=== PATIENT | female | born 1995 | race Caucasian/White ===

== ENCOUNTER 2017-02-23 00:29 | Inpatient (IN) | payer OTHER ==
[~2017-02-23] VITALS: Ht 157.5 cm; Wt 70.9 kg
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
--- NOTE | 2017-02-23 01:22 | NUR ---
1 BELONGING BAG, 1 VALUABLES BAG LABS SENT (1SST,1LAV)
[2017-02-23 01:23] LABS: ABSOLUTE BASOPHIL COUNT 0 /CUMM (0.0-0.2); ABSOLUTE EOSINOPHIL COUNT 0 /CUMM (0.0-0.7); ABSOLUTE GRANULOCYTE CT 9.3 /CUMM (1.4-6.5); ABSOLUTE LYMPH COUNT 1.1 /CUMM (1.2-3.4); ABSOLUTE MONOCYTE COUNT 0.4 /CUMM (0.10-0.60); BASOPHIL % 0.3 % (0.0-2.0); EOSINOPHIL % 0.1 % (0-5); GRANULOCYTE % 86.2 % (42.2-75.2); HEMATOCRIT 39.4 % (37-47); MEAN CORPUSCULAR HGB CONC 33.6 G/DL (33.0-37.0); MEAN CORPUSCULAR VOLUME 83.4 FL (81.0-99.0); MEAN PLATELET VOLUME 9.2 FL (7.4-10.4); PLATELET COUNT 249 /CUMM (130-400); RBC DISTRIBUTION WIDTH 13.6 % (11.5-14.5); RED BLOOD CELL CT 4.72 /CUMM (4.20-5.40); WHITE BLOOD CELL COUNT 10.8 /CUMM (4.8-10.8)
--- NOTE | 2017-02-23 01:23 | NUR ---
PT REPORTS "THE ONLY PEOPLE I WANT TO TALK TO ARE PEOPLE WHO WILL LET ME KILL MY PARENTS."
--- NOTE | 2017-02-23 01:24 | NUR ---
PT DENIES ANY MEDICAL HX.
--- NOTE | 2017-02-23 03:25 | NUR ---
PT SLEEPING AT THIS TIME. LIGHT REMAINS ON IN ROOM PER REQUEST FROM PT. SITTER PRESENT. NO ACUTE DISTRESS NOTED.
--- NOTE | 2017-02-23 04:05 | NUR ---
URINE SAMPLE OBTAINED, SPECIMENS SENT OFF TO THE LAB.
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
--- NOTE | 2017-02-23 06:55 | NUR ---
REFUSING VS UNCOOPERATIVE W/STAYING IN HER RM. WALKING IN AND OUT OF RM 14. INSTRUCTED THE IMPORTANCE OF HER BEING COPERATIVEW/STAFF AND SITTERS. SECURITY STANDING W/SITTER.
--- NOTE | 2017-02-23 08:12 | NUR ---
Crisis attempted to engage pt for consultation. Pt reports "I am not ready to talk". Pt informed crisis will check back in with her to meet a little later this morning.
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
--- NOTE | 2017-02-23 11:20 | NUR ---
ASSUMED CARE OF THIS PT FROM CURT PARRY. PT REFUSING TO SPEAK OR ALLOWING VITALS. CRISIS ATTEMPTED TO SPEAK WITH PT, BUT SHE IS REFUSING THIS WELL. SITTER AT DOOR.
--- NOTE | 2017-02-23 12:47 | NUR ---
PT LYING ON BED IN ROOM 14. PT CALM AT THIS TIME. SITTER AT DOOR.
--- NOTE | 2017-02-23 14:15 | NUR ---
PT CALM IN ROOM 14, NOT COOPERATIVE WITH SPEAKING WITH CRISIS OR ALLOWING VITALS. SITTER AT DOOR FOR SAFETY.
--- NOTE | 2017-02-23 15:01 | NUR ---
PT REFUSING VITALS. PT OTHERWISE CALM LYING ON BED IN ROOM 14. SITTER AT DOOR
--- NOTE | 2017-02-23 16:55 | NUR ---
STRING TOP SEALER AT BEDSIDE
--- NOTE | 2017-02-23 17:30 | NUR ---
PT RESTING ON BED IN ROOM 14. PT MET WITH CRISIS. SITTER AT DOOR.
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
--- NOTE | 2017-02-23 18:44 | NUR ---
PT REFUSING ZYDIS 5MG AT THIS TIME SITTER AT DOOR
--- NOTE | 2017-02-23 19:12 | NUR ---
Patient crisis consultation completed. Evaluation reviewed with on-call psychiatrist Dr. Guerrero and with attending physician Dr. Ac. Dr. Guerrero advised Zydis 0.5 mg - Dr. Ac ordered this. Patient may refuse her medication due to paranoia. Patient is pending inpatient psychiatric admission. Due to no beds at [facility], a bed search will be done by crisis.
--- NOTE | 2017-02-23 19:37 | NUR ---
PT'S VALUABLES BAG WAS OPENED TO GET PHONE NUMBERS OFF CELL PHONE, THEN RESEALED.
--- NOTE | 2017-02-23 21:03 | NUR ---
PT SITTING ON BED IN ROOM 14. PT CALM AT THIS TIME. SITTER AT DOOR.
--- NOTE | 2017-02-23 22:46 | NUR ---
PT REFUSED ZYDIS 10MG. PT RESTING ON BED IN ROOM 14. PT CALM AT THIS TIME. SITTER AT DOOR.
--- NOTE | 2017-02-24 00:18 | NUR ---
SLEEPING ON BED. RR WNL. SITTER IN ATTENDANCE.
--- NOTE | 2017-02-24 02:36 | NUR ---
SLEEPING ON BED. RR WNL. SITTER IN ATTENDANCE.
--- NOTE | 2017-02-24 04:23 | NUR ---
CONTINUES TO SLEEP
--- NOTE | 2017-02-24 06:18 | NUR ---
pt refused vitals at this time pt states "you cant come in here"
--- NOTE | 2017-02-24 08:24 | NUR ---
PT UP AND EATING BREAKFAST SITTER REMAINS AT DOOR
--- NOTE | 2017-02-24 09:17 | NUR ---
PT STANDING IN THE CORNER OF THE ROOM OFFERS NO COMPLAINTS SITTER REMAINS AT DOOR
--- NOTE | 2017-02-24 09:38 | NUR ---
Crisis attempted to speak with pt. for re-eval and pt. stated "you can't come in here, you can't talk to me". Clinician attempted to ask clarifying questions and pt. refused to answer any other questions, staying quiet and appearing to be "sleeping" in her room. Employee Relations Director indicated she would return "later" to speak with pt.
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
--- NOTE | 2017-02-24 12:12 | NUR ---
ASSUMED CARE OF THIS PT. PT RESTING ON HER BED IN ROOM 14. PT CALM AT THIS TIME. SITTER AT DOOR.
--- NOTE | 2017-02-24 13:33 | ED PSYCHIATRIST/APRN CONSULT ---
Psychiatrist/MEDICAL CLERICAL ASSISTANT ED Consult Assessment and Plan: Attempted to see pt as f/u. Pt refused to speak with this provider. Refusing meds. A/P: Given stated HI, refusal to cooperative with medication and treatment, pt at high risk for harm to others as well as self. As such, requires acute psychiatric stablization. Awaing inpatient bed.
--- NOTE | 2017-02-24 13:45 | ED PSY CRISIS COLLATERAL NOTE ---
See Addendum Collateral Note Collateral Note Family/Inform/Keagan Contacts: Dr. Guerrero re-evaluated pt and determined he continues to require inpt psych tx and remains on a PEC. She asked that pt's Aunt be notified as pt requested.This clinician called Aunt Jame Shen and explained the need for inpt psych tx due to concern that pt is a risk to himself due to his OD. She did not agree with the decision and stated she plans to get other family involved in this as they do not agree that pt should be on a PEC and want him discharged. "He is going to loose his job because of this." Explained to her that the nurses are currently charging his phone so that we can get his jobs number out of it and call them and tell them he is in the hospital and that his job will not be told why he is in the hospital.
--- NOTE | 2017-02-24 14:24 | NUR ---
PT'S PARENTS DROPPED OFF BAG OF BELONGINGS FOR PT. BROUGHT TO AREA FOR SECURITY TO GO THROUGH AND OUT IN CLOSET. PARENTS ASKED THAT PT NOT BE TOLD WHO DROPPED OFF THE BELONGINGS. PARENTS ARE AVAILABLE BY CELL - MOM = [phone] AND DAD = [phone]
--- NOTE | 2017-02-24 14:32 | NUR ---
PT'S VALUABLES BAG REMOVED FROM SAFE, OPENED TO RETREIVE PHONE NUMBERS FROM CELL PHONE SO PT COULD CALL WORK. PHONE RETREIVED AND PLACED IN NEW VALUABLES BAG AND RETURNED TO SAFE.
--- NOTE | 2017-02-24 15:20 | NUR ---
PT PLACED IN 4 POINT HARD RESTRAINTS AT 15:20 SITTER AT DOOR
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
--- NOTE | 2017-02-24 17:25 | NUR ---
PT TIANER, EXPLAINED PROTOCOL TO TAKE 2 RESTRAINTS OFF AT A TIME. PT'S RIGHT WRIST AND LEFT ANKLE REMOVED FROM RESTRAINTS. THIS RN AND RESAW TAILER AT BEDSIDE TO TELL PT CRITERIA TO COME OUT OF ALL RESTRAINTS. SITTER AT DOOR.
--- NOTE | 2017-02-24 18:30 | NUR ---
PT SEEN PULLING AT RESTRAINTS IN AN ATTEMPT TO ESCAPE THEM. PT INFORMED THAT SHE NEEDS TO SHOW CONTROL FOR 1 HOUR, PT DENYING PLAYING WITH RESTRAINTS. SITTER REMAINS AT BEDSIDE
--- NOTE | 2017-02-24 18:47 | NUR ---
1 PERSONAL BELONGINGS PUT IN CLOSET
--- NOTE | 2017-02-24 19:29 | NUR ---
PT REMOVED HER WRIST FROM THE LEFT WRIST RESTRAINT. PT WAS EDUCATED ON THE NEED FOR HER TO REMAIN IN THE 2 POINT RESTRAINTS FOR HER AND OUR SAFETY. LEFT WRIST RESTRAINT WAS REAPPLIED. SITTER AT DOOR. PT TEARFUL.
--- NOTE | 2017-02-24 20:44 | NUR ---
PT REMOVED FROM 2 POINT HARD RESTRAINTS AT 2043. ORDER IS FOR 2044. PT AGREES TO BE CALM AND REMAIN IN ROOM WHEN ASKED TO. SITTER AT DOOR.
--- NOTE | 2017-02-24 20:59 | NUR ---
PT'S MOTHER CALLED TO RELAY HER WISH FOR PT TO BE ADMITTED HERE TOMORROW IF BEDS BECOME AVAILABLE.
--- NOTE | 2017-02-24 21:51 | NUR ---
PT ASLEEP AT THIS TIME. RESPIRATIONS EQUAL AND UNLABORED. SITTER AT DOOR.
--- NOTE | 2017-02-24 23:30 | NUR ---
PATIENT AWAKE, AGITATED. PATIENT REFUSING ANY VS AT THIS TIME. REGUALR RESPIRATIONS NOTED. LIGHTS DIMMED TO DECREASE STIMULI. SITTER REMAINS W/ PATIENT.
--- NOTE | 2017-02-25 01:23 | NUR ---
PATIENT SLEEPING AT THIS TIME W/ REGULAR RESPIRATIONS NOTED. SITTER REMAINS W/ PATIENT. LIGHTS DIMMED. PATIENT NOTED TO BE TURNING AND REPOSITIONING SELF.
--- NOTE | 2017-02-25 03:37 | NUR ---
PATIENT CONTINUES TO SLEEP AT THIS TIME W/ REGULAR RESPIRATIONS NOTED. SITTER REMAINS W/ PATIENT. LIGHTS DIMMED.
--- NOTE | 2017-02-25 05:57 | NUR ---
AWOKE PATIENT TO ATTEMPT TO OBTAIN VS. PATIENT REFUSING VS AT THIS TIME. PATIENT ATTEMPTING TO RETURN TO SLEEP. LIGHTS DIMMED TO DECREASE STIMULI. SITTER REMAINS W/ PATIENT.
--- NOTE | 2017-02-25 08:12 | NUR ---
SPOKE WITH PT AT LENGTH ABOUT PROCESS OF BED SEARCH. PT CONTINUOUSLY ASKING WHY SHE NEEDS TO STAY, ASKING FOR HER DISCHARGE PAPERS. PT EDUCATED ON NEED TO BE ADMITTED WHETHER TO [facility] OR ELSEWHERE FOR HER OWN SAFETY. AND THAT THE DECISION TO ADMIT PT COMES FROM PSYCH. NOT THIS RN. PT ASKING TO CALL HER BROTHER FLOYD, WILL ALLOW PT TO CALL BROTHER LONG PT REMAINS CALM/COOPERATIVE. Informed waiting has been performed. ALSO SPOKE WITH PT'S MOTHER LIZY WHO DOES NOT WANT PT TO KNOW SHE CALLED. ADVISED MOTHER PT CONTINUES TO BE A BED SEARCH.
--- NOTE | 2017-02-25 09:08 | NUR ---
CRISIS AT BEDSIDE WITH PT.
--- NOTE | 2017-02-25 09:32 | NUR ---
ATTEMPTED TO MEDICATED PT WITH PO ZYPREXA. PT STATING SHE HASN'T TAKEN IT, AND DOES NOT KNOW WHAT IT DOES. PT EDUCATED ON ZYPREXA. REQUESTING MORE INFO ON ZYPREXA. PT PROVIDED PRINTED EDUCATION ON ZYPREXA.
--- NOTE | 2017-02-25 09:38 | NUR ---
Pt will be admitted to [facility]. Waiting on [facility] to discharge patient. Time of admission TBD.
--- NOTE | 2017-02-25 10:30 | NUR ---
PT PROVIDED LAW BOOK FROM [employer] PER HER REQUEST.
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
--- NOTE | 2017-02-25 11:48 | ED PSY CRISIS COLLATERAL NOTE ---
See Addendum Collateral Note Collateral Note Family/Inform/Keagan Contacts: Recieved call from Justine Kennedy (mother). She asked for an update on Alexa. Mom was informed that Alexa would be admitted to [facility] today. Mom was informed that she had taken 1 dose of Zyprexa this morning. Mom was given [facility] nursing station number.
--- NOTE | 2017-02-25 11:51 | NUR ---
SLEEPING ON BED. RR WNL. SITTER IN ATTENDANCE.
--- NOTE | 2017-02-25 12:24 | NUR ---
REPORT TO [facility] IN [facility].
[2017-02-25 13:08] VITALS: BP 122/84
--- NOTE | 2017-02-25 13:32 | NUR ---
Admission assessment: Patient presents as psychotic, paranoid, frightened, with no insight into need for hospitalization. Patient lying in bed with back to this scenario writer. Poor historian, states she has no parents, denies SI or HI. Reports non compliance with meds "I throw them in the trash". Patient tearful at times stating "my head make it stop" patient offered but refused prns. Patient requesting to call the police to find her belongings and car keys. Patient opting out. Resting in bed- on 1:1 for safety, unpredictability.
[2017-02-25 16:23] VITALS: BP 130/65
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
[2017-02-25 19:58] VITALS: BP 109/58
--- NOTE | 2017-02-25 22:40 | NUR ---
Pt is in bed mood is flat and tearful, labile during erica shift. Vital signs are stable no behavioral issues during erica shift. Will continue to monitor the pt overnight.
--- NOTE | 2017-02-25 23:42 | NUR ---
PT SPENT MUCH OF EVENING SHIFT IN BED. WHEN AWAKE, MOOD LABILE. PT AT TIMES TEARFUL, AT OTHER TIMES HAD AN ANGRY EDGE. BEHAVIOR SUSPICIOUS AND PARANOID. TOLD MED NURSE AND SITTER TO "GET THE &*#$ AWAY" FROM HER. HOWEVER, BEHAVIOR DID NOT ESCALATE WHEN REDIRECTED. THOUGH INITIALLY RESISTANT TO TAKING MEDS, PT AGREED TO TAKE HS ZYPREXA. AFTER TAKING HS MEDS AND BEING ALLOWED TO VERBALIZE THOUGHTS AND FEELINGS WITH CHARGE NURSE AND SITTER, BEHAVIOR WAS MORE CALM AND MORE APPROPRIATE. PT REQUESTED THAT CHARGE NURSE CALL MOTHER AND ASK HER TO BRING IN SOME BELONGINGS AND TOILETRIES. CHARGE NURSE CALLED MOTHER PER PT REQUEST. PT CONSIDERING CALLING MOTHER TOMORROW. PT CURRENTLY SLEEPING IN BED.
--- NOTE | 2017-02-26 05:15 | NUR ---
PATIENT SLEPT ALL NIGHT WITH 1:1 SITTER MONITORING AT ALL TIMES.
[2017-02-26 08:22] VITALS: BP 125/68
--- NOTE | 2017-02-26 10:55 | SOCIAL WORKER TX PLAN PSYCH ---
Treatment Plan - Please Document: - Evidence that there is ongoing collaboration between - the patient and the interdisciplinary team, - including the patient's active participation and - responsibility for engaging in the treatment regimen, - and that the treatment plan is individualized and - relevant to the patient's conditions. - Treatment plan should reflect documentation indicating - that all active therapeutic efforts are included. Strengths/Capabilities: Patient is a college graduate Patient likes to read to educate herself on various topics Physical Limitations (Interventions): None reported. Patient Identified Trmt Goals: Pt not able to identify Discharge Plan: Referral to [facility] Problem/Goals #1 Problem #1: Suicidal/Homicidal Ideation Goal (Short Term): Maintain safety on unit (15min checks), verbalize feelings to staff, idenitfy 1- 2 triggers to SI, Depression, and 1-2 coping skills. Attend groups and be visible in millieu. Goal (Industrial Engineering Analyst): PT to report no psychosis, no psychosis observed, no SI/HI, No AH/VH. Mood stable. Follow-up with treatment recommendations ([facility]). Interventions: Individual therapy daily, groups daily (4), activities, meeting with ASSEMBLER PRODUCT or MD daily regarding medication management, Family meetings as needed. Nursing 13/05 care, medical care. Modalities: CBT, DBT, SC modalities, accupuncture, activity groups, SA/MH groups. Problem/Goals #2 Problem #2: Cannibis Use Goal (Short Term): Idenitfy 1-2 triggers to Cannibis use, and 1-2 ways to prevent relapse. Attend all Substance abuse groups on unit, verbalize increase in understanding of impact substance abuse has on mood and functioning. Goal (Snf): Maintain abstinence, use relapse prevention plan in daily life, sober/clean supports, AA/NA and follow-up with aftercare plan. Interventions: Individual therapy daily, groups daily (4), activities, meeting with ASSEMBLER PRODUCT or MD daily regarding medication management, Family meetings as needed. Nursing 13/05 care, medical care. Modalities: Provide psychoeducation on substance abuse and impact on mood, symptoms and functioning. CBT, SC and strengths based modalites. DSM5/PS Stressors/Medical Prob Diagnosis' (DSM 5, Stressors, Medical): F31.2 Bipolar Disorder with psychotic features R/O Schizophrenia Current GAF: 20 Treatment Team - Responsibilities of members of the treatment team include: - Medication Management- MD or ASSEMBLER PRODUCT - Medication Administration and Monitoring- Nurse - Group Therapy- Occupational Therapist - 1:1 Therapy,Disch Planning,family involvement-Pasta Press Operator
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
--- NOTE | 2017-02-26 12:20 | NUR ---
PT REPORTED FEELING SLEEPY FROM HER MEDS. SHE ATTENDED SOME OF THE GROUPS. MINIMAL PARTICIPATION. SHE DOES DENY SUIICDAL THOUGHTS AND HER BEHAVIOR HAS BEEN CALM AND COOPERATIVE. SHE IS MONITORED ON ONE TO ONE STATUS FOR HER SAFETY.HER CONVERSATION HAS BEEN APPROPRIATE
[2017-02-26 12:40] VITALS: BP 133/66
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
--- NOTE | 2017-02-26 16:40 | CPS MD/APRN INITIAL ASSE PSYCH ---
Psychiatric Admission Heavy Equipment Sales Associate's Note Reviewed: Yes Patient Seen and Examined: Yes Identifying Information: Patient is a 22-year old female with a history of cannabis use disorder and Bipolar disorder (per Crisis eval) who was biba on a PEER for homicidal ideation to kill her parents with plan to shoot them, and medication nonadherence. Additionally, PEER noted the patient was "found trying to get into a residence in [place]...rambling thoughts, off Bipolar meds. Believes she is undercover for the police." Chief Complaint: "I'm seeking safety from my parents." Reaction to Hospitalization: Unable to assess at present History of Present Illness Onset of Illness: Four years ago, patient experienced first "psychotic break" while attending [employer] (per Crisis collateral from patient's mother). Patient had difficulty partaking in interview given present acuity of symptoms. Circumstances Leading to Admission: Polysubstance abuse Medication nonadherence Problem(s) Justifying Need for Admission: HI towards family with plan to shoot parents. Past Psychiatric History Past Diagnosis(es)- if any: Bipolar disorder with psychotic features Past Precipitating Factors- if any: Medication nonadherence Cannabis use - Include inpatient and outpatient treatment Treatment History: Patient unable to provide tx history given present symptoms. Per crisis collateral from pt's mother: -1st hospitalized at [facility] in [place] around 2011. -Hospitalized a second time in 2011 at [facility]. -S/p D/C from [facility] hospitalization, she was seen by [place] psychiatrist Dr. Shaggy Larsen. - Third hospitalization occured at [facility] in [place] around 2012. - Prior outpatient tx with psychiatrist in [place] while attending college. -Last hospitalized in September 2016 at [facility]. - Recently treated by Tru Castro APRN at [facility] in [place], [place]. *Per crisis collateral, mother reported patient will use legal processes to refuse medications but has lost all involuntary treatment hearings. History of Suicide Attempts or Gestures Denied. Substance Abuse History: Utox (+) for cannabis only. BAL <10.0mg/dl. Patient unable to answer if she used other substances; was very overwhelmed by questions being asked. Allergies: Coded Allergies: No Known Allergies (02/23/17) Home Med List: Last prescribed Atkinson which she was nonadherent to, per collateral from mother. Past med trials (per crisis collateral from pt's mother): Haldol Abilify Propranolol (for tremors associated with antipsychotic medication.) *Mother reports Abilify was effective in managing patient's symptoms. - Include any medical condition(s) that may - impact the patient's recovery/remission Past Medical History: Chronic back pain Past History Medical History Any Pertinent Medical History? 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 When asked this, patient repeated multiple times "what do you mean by that?" Significant Relationships (family/friends): Patient unable to answer. Based on crisis collateral, patient's mother seems very supportive and concerned for patient's well-being. 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 Legal: Denied. Healthly Behaviors Screening Tobacco Screening Tobacco Use from ED Docu: Never used - If tobacco counseling indicated - the following topics are required. - #1 Recognizing dangerous situations. - #2 Coping Skills. - #3 Basic information about quitting. Status of Tobacco Cessation Counseling: N/A B/C NO TOB USE Cessation Med Status: No Tobacco Use last 30d Alcohol Screening - ETOH screen POS if BAL >=80 or Audit-C>= M4/F3 Audit-C Score from Diag Assess: 0 Blood Alcohol Level: Lab Serum Alcohol < 10.0 MG/DL 02/23/17 0116 Alcohol Use Screening Results: Neg per Audit C &/or BAL - If ETOH counseling indicated - the following topics are required. - #1 Express concern about the patient's - drinking at unhealthy levels, include informing - of national norms for moderate drinking: - men <= 14 drinks/week, max 4 drinks/occasion - women <= 7 drinks/week, max 3 drinks/occasion - #2 Providing feedback, including linking alcohol to - negative physical effects (liver injury, hypertension) - negative emotional effects (relationship problems and - depression) - negative occupational consequences (reduced work - performance) - #3 Advising the patient to abstain from alcohol or - to drink below national norms for moderate drinking - (as listed above). Status of ETOH Use Counseling: N/A B/C NO ETOH Use Metabolic Screening - Screen if on a Neuroleptic Medication - Metabolic screening should include: - Blood Pressure, BMI, Glucose or Hgb A1c, & a - Lipid profile from within the past 365 days. Metabolic Screening () Not Applicable, patient not on a neuroleptic. OR ([X]) Patient on a neuroleptic(s) . Enter below results for Glucose or Hemoglobin A1C, and lipid panel if obtained during the last 365 days. BMI: 28.000 Blood Pressure: 129/87 Laboratory Results (If applicable): Lab Glucose 130 mg/dL H 02/23/17 0116 Lipid panel and HA1c ordered for tomorrow morning. Exam and Plan Mental Status Examination Ambulation Status: Steady and independent Appearance: 22y/o CF who appears stated age. Dressed in paper scrubs, disheveled. Attitude towards examiner: Suspicious. Psychomotor activity: + psychomotor agitation. No psychomotor retardation noted. Behavior: Restless, fidgety, guarded. Quality of speech: Some paucity. Soft-spoken. Affect: Constricted to blunted. Mood: "scared, anxious." Unable to quantify anxiety/depression using 0/10 scale given profound thought disturbance. Suicidal Ideation: Denied Homicidal Ideation: Denied HI, plans and intent. Patient was noted in ED with HI towards parents and plan to shoot them. Hallucinations: Denied AVH. Did not appear to be responding internally. Paranoid/Delusional Material: + paranoia towards family members who "work in the medical field and are trying to do weird things to me." Patient would not elaborate further on remark. Also expressed paranoia towards other patient's on unit "who are trying to stab me." Again, she could not elaborate on statement. Difficulties with thought organization: Significant thought disturbance. Mild thought blocking noted. Easily overwhelmed by questions asked; easily distracted. Unable to articulate thoughts to short, direct questions. Insight: poor Judgment: poor Orientation: X 3 Cognition: Intact Memory Function: Unable to assess; patient unable to complete recall of objects at 1 and 5 minutes given acuity of symptoms. Estimate of intellectual functioning: Unable to assess at present. Assets/Strengths Patient Identified Assets/Strengths: Supportive family; college educated. Impression/Plan Impression and Plan: Patient is a 22-year old CF with a reported history of Bipolar disorder, multiple inpatient psychiatric hospitalizations starting 4 years ago. Last hospitalized at [facility] in 2016. She presented to ED on a PEER biba d/t psychosis , medication nonadherence and HI with plan to shoot her parents. Limited HPI was obtained from patient given her difficulty participating in interview secondary to acuity of psychosis. She denied SI, HI, AVH on encounter. Thought blocking evident. Patient appeared significantly anxious given paranoia towards family and other patients on unit, believing patients will stab her. Exacerbation likely influenced by medication nonadherence and cannabis use. Unclear if other substances were taken, however Utox (-) for all other substances. Patient requires inpatient tx for stabilization. For now, will continue scheduled Zyprexa for psychosis. Patient reported daytime sedation from Zyprexa 10mg BID. Reviewed with patient that I will change dosing to 5mg QAM and 15mg QHS for psychosis. Patient was agreeable. Will need collateral from patient's mother, outpatient psych provider, and past [facility] records to more fully understand the patient's diagnostic and tx history. Patient presently unwilling to sign MARIELY for these parties largely due to disorganized thoughts and inability to understand consent process. Will wait for patient's thoughts to clear to resume this process. - Include all active medical diagnosis that require tx DSM 5 Diagnosis(es): Schizoaffective disorder, bipolar type R/O Schizophrenia Cannabis use disorder R/O substance-induced psychosis. - Initial Tx Plan for Active Psych & Medical Conditions Treatment Plan: 1. Continue 1:1 ATC for safety to self/others/paranoia. Continue in paper scrubs for safety. 2. Change Zyprexa from 10mg BID to 5mg QAM and 15mg QHS for significant thought disturbance. 3. Lipid panel, Hemoglobin A1C, rpt potassium, magnesium, TSH, and Atkinson level ordered for tomorrow morning. 4. EKG ordered. 5. Once thought process clears, attempt to obtain MARIELY to contact patient's mother, outpatient psych provider and obtain [place] records. 6. Once symptoms clear, consider switch to Abilify (given past efficacy) and if tolerated consider trial of Abilify TREVINO. 7. Once symptoms are psychiatrically stable, refer to IOP level of care. 8. H&P per general pediatrician team. 9. Continue mouth checks after every medication administration. - Factors that would help patient function - in a less restrictive setting. Factors: Resolved psychosis and HI Medication adherence Treatment adherence Mood stabilization
[2017-02-26 16:44] VITALS: BP 129/87
[2017-02-26 19:52] VITALS: BP 132/78
--- NOTE | 2017-02-26 22:13 | NUR ---
PT IS CURRENTLY ON A ONE TO ONE, STAYING IN UNIT PERIPHERY. LIMITED INTERACTION WITH PEERS, WILL INTERACT WITH STAFF. MOOD IS STABLE, AFFECT IS EUTHYMIC, APPEARS ANXIOUS AT TIMES, COMMUNICATION IS ORGANIZED AND APPEARS NORMAL IN ALL RESPECTS, AND APPETITE IS NORMAL. PT DENIES SI AT THIS TIME.
--- NOTE | 2017-02-27 00:17 | NUR ---
PT OBSERVED SLEEPING, NO COMPLAINTS OFFERED. SITTER PRESENT.
--- NOTE | 2017-02-27 02:48 | NUR ---
PT REMAINS ASLEEP WITHOUT ISSUE. SITTER REMAINS IN PLACE 1:1 OBSERVATION
--- NOTE | 2017-02-27 03:57 | NUR ---
SLEPT WELL OVERNIGHT WITH SITTER PRESENT ALL NIGHT.
--- NOTE | 2017-02-27 03:58 | NUR ---
SLEEPING WITH SITTER IN ATTENDANCE AT ALL TIMES.
[2017-02-27 07:12] LABS: LITHIUM < 0.2 mmol/L (0.6-1.2)
[2017-02-27 08:02] VITALS: BP 127/75
--- NOTE | 2017-02-27 11:49 | NUR ---
PT MONITORED ON ONE TO ONE STATUS FOR HER SAFETY. SHE WAS INITIALLY RESISITIVE TO MEDS BUT DID TAKE THEM. HER GOAL WAS TO TALK WITH HER DOCTOR ABOUT HER MEDS.PT APPEARS GUARDED AND PARANOID AT TIMES. SHE RESCINDED HER RELEASE OF INFORMATION AND REFUSES TO ALLOW STAFF TO SPEAK WITH HER FAMILY. WHEN ASKED PT STATED SHE HAD SUICIDAL THOUGHTS BUT REPORTED NO PLAN.MINIMAL INTERACTIONS WITH HER PEERS
[2017-02-27 12:42] VITALS: BP 137/76
--- NOTE | 2017-02-27 15:48 | CP SOUTH PROGRESS NOTE PSYCH ---
Psych (Inpt) Progress Note Progress Note Include the following elements, when applicable: Involvement in the active treatment of the patient with behavioral observations of the patient and the patient's response to the treatment. Review of the ongoing treatment process in the context of the treatment plan. Indication of how multi-disciplinary staff members are carrying out the treatment plan. Plans for future interventions and recommendations for revision of the treatment plan. Liaison with other physicians/providers. Progress Note: I discussed this patient's progress to date, current mental status, treatment process in the context of the treatment plan, and discharge planning with staff/ team in the daily morning inpatient team meeting. I also met with the patient myself in individual session. OBJECTIVE: Current Medications Sig/Kirby Start time Last Medication Dose Route Stop Time Status Admin Diphenhydramine HCl 50 MG Q6P PRN 02/25 2145 AC PO Idalia Carbonate 450 MG 799,02/27 CAN PO Idalia Carbonate 450 MG 0800,02/27 AC PO Olanzapine 5 MG 02/27 08 AC 02/27 PO 0931 Olanzapine 15 MG 02/26 AC 02/26 PO 211 Propranolol HCl 20 MG TID PRN 02/25 214 AC 02/27 PO 1339 Vital Signs Date Time Temp Pulse Resp B/P B/P Pulse O2 O2 Flow FiO2 Mean Ox Delivery Rate 02/27 1339 96 137/76 02/27 1242 96 137/76 02/27 0802 97.3 94 127/75 02/26 1952 98.7 93 132/78 02/26 1702 98 129/87 02/26 1644 98 129/87 Laboratory Tests 02/27/17 0600: Hemoglobin A1c 5.3, Magnesium 2.1, Triglycerides 107, Cholesterol 147, LDL Cholesterol, Calc 81, HDL Cholesterol 45, Cholesterol/HDL Ratio 3, TSH 1.730, Idalia < 0.2 L ASSESSMENT: Chart, progress notes, labs, VS and medication list were reviewed. HR mildly tachy, VS otherwise within normal limits. TSH, Lipid panel, rpt potassium and magnesium all within normal limits. Li level <0.2. Met with patient individually today. Without prompting she shared feeling "more confident" today. When asked to elaborate on this, she appeared stuck, became frustrated then stated "what? why? I feel with my hands." Thought process remained disorganized, with intermittent thought blocking. Mood was labile, tearfully pleading with this expert medical writer for discharge today. Behavior was suspicious and guarded. I asked her if I could contact her outpatient MECHANICAL SPECIALIST, Tru Victorlon, from [facility]. She asked why? I informed her that it would be helpful to understand her treatment history from her outpatient provider. She stated "I'm his patient, ask me what you need to know." Patient struggled to participate in conversation. She refused to sign MARIELY for Tru Matthew MECHANICAL SPECIALIST. She also refused to sing MARIELY for her mother or [facility]. When asked about her resistence to signing MARIELY, she stated "I'm afraid you will all take advantage of me." Patient continues to endorse paranoid thoughts towards staff. Today, she denied PI towards her mother and father, and other patients on the unit, unlike yesterday. She denied SI, HI, AVH. No evidence of galileo delusions. She reported sleeping well throughout the night. Reported stable appetite. Reported fair energy level. She reported tolerating medications well thus far, she denied untoward medication effects. Spoke to patient about resuming Idalia CR which she was nonadherent to outpatient to target mood lability. Reviewed the risk/benefit/se profiles of Idalia, she verbalized understanding of education. She was agreeable to retrial. Patient making slow progress with continued thought disturbance and mood lability. Continues to require inpatient stabilization. PLAN: 1. Continue 1:1 sitter ATC for safety to self/others. 2. Continue paper scrubs given risk for elopement; continue mouth checks. 3. Start Idalia CR 450mg BID for mood stabilization. Level ordered for 03/03/17 at 0600. 4. Continue Zyprexa 5mg QAM and 15mg QPM for thought disturbance. 5. Dispo planning per primary team.
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
[2017-02-27 16:24] VITALS: BP 136/61
[2017-02-27 20:02] VITALS: BP 125/80
--- NOTE | 2017-02-27 20:42 | NUR ---
PT IS COOPERATIVE WITH STAFF AND PEERS, AND COMPLIANT WITH UNIT RULES. OFTEN IN MILIEU, THOUGH LIMITED INTERACTION WITH PEERS. WILL INTERACT WITH STAFF TO A GREATER EXTENT. MOOD IS STABLE, AFFECT IS EUTHYMIC, APPEARS SLIGHTLY ANXIOUS AT TIMES. COMMUNICATION IS ORGANZIED AND APPEARS NROMAL IN ALL RESPECTS, AND APPETITE IS NORMAL. PT DENIES SI AT THIS TIME.
--- NOTE | 2017-02-28 06:55 | NUR ---
PATIENT SLEPT ALL NIGHT AFTER 0130, PRIOR SHE RESTED QUIETLY IN BED; SHE CONTINUED TO REFUSE ZYPREXA, STATING "I'LL COME OUT FOR IT WHEN I'M READY", CONSTRICTED AFFECT, PARANOIA, VERBALIZING FEARS THAT SHE WILL BE HARMED.
[2017-02-28 08:22] VITALS: BP 116/73
--- NOTE | 2017-02-28 10:29 | CP SOUTH PROGRESS NOTE PSYCH ---
Psych (Inpt) Progress Note Progress Note Include the following elements, when applicable: Involvement in the active treatment of the patient with behavioral observations of the patient and the patient's response to the treatment. Review of the ongoing treatment process in the context of the treatment plan. Indication of how multi-disciplinary staff members are carrying out the treatment plan. Plans for future interventions and recommendations for revision of the treatment plan. Liaison with other physicians/providers. Progress Note: I discussed this patient's progress to date, current mental status, treatment process in the context of the treatment plan, and discharge planning with staff/ team in the daily morning inpatient team meeting. I also met with the patient myself in individual session. OBJECTIVE: Current Medications Sig/Kirby Start time Last Medication Dose Route Stop Time Status Admin Diphenhydramine HCl 50 MG Q6P PRN 02/25 2145 DC PO Mershon Carbonate 450 MG 0800,02/27 CAN PO Mershon Carbonate 450 MG 0800,02/27 AC 02/28 PO 1030 Olanzapine 10 MG 02/28 CAN PO Olanzapine 5 MG 1300 02/28 1300 CAN PO Olanzapine 2.5 MG Q4 HRS NEEDED PRN 02/28 1000 DC PO Olanzapine 5 MG 0800 02/27 0800 DC 02/27 PO 0931 Olanzapine 15 MG 2100 02/26 2100 DC 02/26 PO 2118 Propranolol HCl 20 MG .STK-MED ONE 02/28 2008 DC PO 02/27 2009 Propranolol HCl 20 MG TID PRN 02/25 2145 AC 02/28 PO 1030 Risperidone 3 MG 02/28 AC PO Risperidone 0.25 MG Q4 HRS NEEDED PRN 02/28 1030 AC PO Vital Signs Date Time Temp Pulse Resp B/P B/P Pulse O2 O2 Flow FiO2 Mean Ox Delivery Rate 02/28 1030 96 116/73 02/28 0822 97.5 96 116/73 02/27 2029 96.7 94 18 125/80 02/27 2002 96.7 94 125/80 02/27 1624 84 136/61 02/27 1339 96 137/76 02/27 1242 96 137/76 ASSESSMENT: Chart, progress notes, labs, VS and medication list reviewed. Vital signs within normal limits. No new lab results today. Patient refused Zyprexa 15mg QHS last night. Reviewed patient's progress with nursing staff, who reported patient has shown appropriate boundaries on unit and has not made attempts at elopement. Nursing strongly advocated for patient to come off of 1:1 given that she has not demonstrated that she is a risk to self or others. Per their reports, patient remains paranoid over medications but not over staff or peers. Met with patient individually today. She shared that she did not understand the connection between her being on a PEC and being on Zyprexa. Thought process remained disorganized, she had described her thoughts as "scattered" and attributed this to being on Zyprexa. Patient appeared paranoid surrounding medications. Stated she would continue to refuse Zyprexa and only needs Mershon. I agreed that she needed Mershon for mood stabilization but also expressed that antipsychotic medication is indicated given her continued thought disturbance. I received and reviewed records extensively from patient's last discharge in 2015 from [facility]. There, she had been discharged on Haldol 5mg QHS and Mershon CR 450mg BID. She had a similar presentation during that hospitalization as here. She had refused antipsychotic recommendations, but eventually grew open to trialing scheduled Haldol. Haldol was offered again to the patient today, rather than Zyprexa, however, the patient declined for unclear reasons. I offered the patient trials of different antipsychotic medications. She was agreeable to trial of Risperdal. I reviewed the risk/benefit/se profiles with patient, including: irreversible movement disorder, metabolic syndrome with weight gain, diabetes, hypertension, sedation, and hyperlipidemia. Patient verbalized understanding and was agreeable to trial, but only scheduled at bedtime d/t concern for sedation. I will start Risperdal at 3mg QHS for continued thought disturbance and paranoia. Patient stated, "How will I know that you're going to stop the Zyprexa and start Risperdal?" I informed patient that I would allow her to watch me enter medication orders and did. Patient denied passive and active suicidal ideation and homicidal ideation. She denied auditory and visual hallucinations. There was no evidence of galileo delusions or of internal preoccupation. + paranoia over medications and tx team speaking to family as evidenced by repeatedly revoking MARIELY. Patient making slow progress with continued thought distrubance and + paranoia. Continues to require inpatient stabilization. PLAN: 1. Discontinue 1:1 ATC. Resume routine safety checks. 2. Continue paper scrubs x 24 hours; will reassess tomorrow morning. 3. Disontinue scheduled and prn Zyprexa. Patient agreeable to start Risperdal at HS. Will start Risperdal 3mg QHS and 0.25mg prn for continued thought disturbance/paranoia. 4. Continue Mershon CR 450mg BID for mood stabilization. Level ordered on at 0600. 5. Reattempt having patient sign MARIELY for family once thought process clears, to receive further collateral. 6. Dispo planning per primary team.
--- NOTE | 2017-02-28 10:43 | IP INCIDENTAL NOTE PSYCH ---
Incidental Note Notation: MARIELY for Tru Melendez APRN from [facility] signed and in patient's chart. Collateral was obtained from Tru Castro APRN at 10:30AM today. Per his report, he met patient once on 02/19/17 for an emergency appointment d/t symptoms of gabrielle. At this time she did not meet criteria for inpatient hospitalization; she was initially reluctant to trial Centre but later was agreeable. Centre CR was prescribed at 450mg BID which she had been previously prescribed and stabilized on during last inpatient [facility] admission (07/2016-08/2016). Tru also related that in the past she had been on Haldol, but she would not agree to retrial. Patient was supposed to f/u with [facility] on 02/22/17, but she had no showed. MARIELY for [facility] was also obtained, see in paper chart. Records from 2016 hospitalization were obtained, reviewed and placed in paper chart.
[2017-02-28 12:37] VITALS: BP 111/67
--- NOTE | 2017-02-28 12:58 | NUR ---
PT IS PRESENT AT TIMES ON THE UNIT, APPEARS PARANOID RE: MEDICATIONS AND DOCUMENTATION AND GUARDED HOWEVER, ALSO WITH PERSISTENCE AND ENCOURAGEMENT FROM STAFF TAKES REDIRECTION WELL. PT IS CALM, RESPECTFUL AND PLEASANT AND COOPERATIVE, MOOD STABLE WITH FLAT AFFECT, TAKEN OFF 1:1 D/T TREATMENT TEAM DECISION HOWEVER REMAINING IN SCRUBS UNTIL RE-EVAL TOMORROW.
--- NOTE | 2017-02-28 13:10 | SOCIAL WORKER PROG NOTE PSYCH ---
Social Work Progress Note Progress Note Pt slept all day, I tried to wake her around noon, and she dozed off we met up later around 4pm, pt was oriented x2 paranoid, and was continuing to perseverate over releases, at this point she no longer wants a family meeting with her parents. I asked if her Mother was here visiting yesterday, and she stated I don't know I can't keep track of those things. Pt was groggy, her mouth was dry, and she wanted to change the next of kin on her voluntary but would not elaborate further. Pt was not organized, isolated and remains in a psychotic state.
[2017-02-28 19:49] VITALS: BP 132/50
--- NOTE | 2017-02-28 21:22 | NUR ---
PT IS VISIBLE ON UNIT, SOCIALIZING WITH SELECT PEERS IN KITCHEN. ATTENDED WRAP UP MEETING THIS EVENING AND PARTICIPATED. PLEASANT AND COOPERATIVE WITH STAFF. NO COMPLAINTS OR SI REPORTED. PT HAS AN OVERALL STABLE MOOD AND CONSTRICTED AFFECT.
--- NOTE | 2017-03-01 07:31 | NUR ---
PATIENT IS OFF OF 1:1. PT PSYCHOTIC, PARANOID, ASKING TO SEE PACKAGES OF MEDS. HOWEVER, PT DID TAKE MEDS, ASKED FOR INDERAL 20 PRN, SAT WITH 2 OTHER PATIENTS ON EVENINGS. PT SLEPT WITH LIGHT OVER BED.
--- NOTE | 2017-03-01 07:46 | CP SOUTH PROGRESS NOTE PSYCH ---
Psych (Inpt) Progress Note Progress Note Include the following elements, when applicable: Involvement in the active treatment of the patient with behavioral observations of the patient and the patient's response to the treatment. Review of the ongoing treatment process in the context of the treatment plan. Indication of how multi-disciplinary staff members are carrying out the treatment plan. Plans for future interventions and recommendations for revision of the treatment plan. Liaison with other physicians/providers. Progress Note: I discussed this patient's progress to date, current mental status, treatment process in the context of the treatment plan, and discharge planning with staff/ team in the daily morning inpatient team meeting. I also met with the patient myself in individual session. OBJECTIVE: Current Medications Sig/Kirby Start time Last Medication Dose Route Stop Time Status Admin Diphenhydramine HCl 50 MG Q6P PRN 02/25 2145 DC PO [place] Carbonate 450 MG 08,02/27 AC 02/28 PO 2016 Olanzapine 10 MG 02/28 2000 CAN PO Olanzapine 5 MG 1300 02/28 1300 CAN PO Olanzapine 2.5 MG Q4 HRS NEEDED PRN 02/28 1000 DC PO Olanzapine 5 MG 0802/27 0800 DC 02/27 PO 0931 Olanzapine 15 MG 2100 02/26 2100 DC 02/26 PO 2118 Propranolol HCl 20 MG TID PRN 02/25 2145 AC 02/28 PO 2219 Risperidone 3 MG 02/28 AC 02/28 PO 2016 Risperidone 0.25 MG Q4 HRS NEEDED PRN 02/28 1030 AC PO Vital Signs Date Time Temp Pulse Resp B/P B/P Pulse O2 O2 Flow FiO2 Mean Ox Delivery Rate 02/28 2219 132/50 02/28 1949 99.0 104 132/50 02/28 1237 99 111/67 02/28 1030 96 116/73 02/28 0822 97.5 96 ASSESSMENT: Chart, progress notes, labs, VS and medication list were reviewed. HR mildly tachy, VS otherwise wnl. No new lab results today. Per nursing progress notes, patient showed good behavioral control last evening, however, remains paranoid particularly surrounding medications and requesting to check medication packaging. No elopement attempts. Met with patient this morning. She was resting in room, but sat up to talk to me. She shared having a hard time thinking about the past because "it hurts." She did not elaborate on statement when asked what she meant by this and stated "I don't want to talk about it." She couldn't recall if she had visits last night. Continued to not want her parents involved in tx and refused to sign a MARIELY. She expressed that she felt Risperdal was helping to clear her thoughts. She denied untoward medication effects; no evidence of movement disorder. She was agreeable to continue taking Risperdal. Patient was A&Ox3. Behavior was guarded. Mood was "pretty good." Affect was constricted to blunted. Eye contact appropriate. Speech soft, normal in rate and tone. She had no complaints. Fair energy level. Reported appetite and sleep were good. Denied passive and active suicidal ideation, plans and intent. Denied homicidal ideation towards her parents or others. Denied auditory and visual hallucinations. No evidence of patient responding to internal stimuli. Denied paranoid thoughts. No evidence of galileo delusions. Thought process less disorganized, non-linear. Judgement and insight limited. Patient making slow progress, with continued thought disturbance and paranoia surrounding medication packaging and parents. PLAN: 1. Continue monitoring for mood, paranoia, thought disorganization. 2. Discontinue paper scrub order. Patient may resume wearing own clothes. 3. Increase Risperdal from 3mg QHS to 4mg QHS. Offer Risperdal 0.25mg Q4H prn. 4. Continue Li Cr 450mg BID. Level ordered 03/03/17. 5. When paranoia clears attempt obtaining MARIELY for parents and have family meeting.
[2017-03-01 07:53] VITALS: BP 102/64
--- NOTE | 2017-03-01 11:57 | NUR ---
PT HAS BEEN CALM TODAY AND IN CONTROL OF HER BEHAVIOR. SHE ATTENDED SOME OF THE GROUPS AND WAS COMPLIANT WITH HER MED REGIME. SHE IS A LITTLE GUARDED AROUND HER MEDS AND WHEN ASKED SHE DENIED ANY THOUGHTS OF SUICIDE OR SELF HARM
[2017-03-01 12:10] VITALS: BP 108/58
--- NOTE | 2017-03-01 12:37 | SOCIAL WORKER PROG NOTE PSYCH ---
Social Work Progress Note Progress Note Pt was slightly more organized this afternoon, she had written a list if things she needed help with including renewing her license and getting her previous medical records, she reports "feeling unsafe and needs to be in the hospital a little longer", she continues to state she is unsure if she should or has to live with her parents or have them involved in treatment, she states "living there is like a hospital". Pt is not on a one to one and is wearing clothes, she is taking medications as prescribed. * COMPLETED insurance auth covered until 03/04/17 review with Isaura from [facility].
[2017-03-01 15:52] VITALS: BP 109/60
[2017-03-01 19:52] VITALS: BP 98/60
--- NOTE | 2017-03-01 20:52 | NUR ---
PT IS CALM, COOPERATIVE WITH STAFF AND PEERS, AND COMPLIANT WITH UNIT RULES. PT IS OFTEN IN [place], INTERACTING WELL WITH OTHERS. PT AT TIMES APPEARS SLIGHTLY ANXIOUS. MOOD IS STABLE, AFFECT IS EUTHYMIC TO FULL RANGE, COMMUNICATION IS ORGANIZED AND APPEARS NORMAL IN ALL RESPECTS, AND APPETITE IS NORMAL. PT DENIES SI AT THIS TIME.
[2017-03-02 12:11] VITALS: BP 126/71
--- NOTE | 2017-03-02 14:06 | NUR ---
QUIET WITHDRAWN ISLOATIVE FOR THE MOST PART. MOOD IS STABLE, FLAT AFFECT. DENIED THOUGHTS OF SELF HARM WHEN ASKED. WHEN ASKED HOW HER DAY WAS GOING SHE BEGAN TO EXPRESS CONCERN ABOUT WHO WE WERE TALKING TO. WANTED TO REMOVE HER BROTHER FROM NEXT OF KIN ON VOLUNTARY SHE SIGNED ON 02/28.
--- NOTE | 2017-03-02 14:13 | CP SOUTH PROGRESS NOTE PSYCH ---
Psych (Inpt) Progress Note Progress Note Include the following elements, when applicable: Involvement in the active treatment of the patient with behavioral observations of the patient and the patient's response to the treatment. Review of the ongoing treatment process in the context of the treatment plan. Indication of how multi-disciplinary staff members are carrying out the treatment plan. Plans for future interventions and recommendations for revision of the treatment plan. Liaison with other physicians/providers. Progress Note: The patient was seen for follow-up during continue of care. We discussed with the nursing staff about the progress and involvement of the patient and she was interviewed one to one. Alexa is 22-year-old, , single female, admitted to inpatient psychiatry for exacerbation of mood disorder which included suicidal and homicidal ideation (towards her parents). She is a medium-height, slightly overweight female, with short cut, curly, black hair. She is guarded, suspicious, fidgety and anxious. The patient states: "I don't have anything to say. Just need to take a break from my parents. I think I'm my parents for the moment." She reports her mood as being good, affect is constricted, sluggish, appropriate to the situation and content. She denied suicidal/homicidal ideation, denied auditory/visual hallucinations. As per nursing staff report she has been compliant with her medications. We will follow-up on the lithium level to be done tomorrow. The patient was seen interacting with peers on the unit, somewhat traumatic, laying on the floor surrounded by peers who were trying to comfort/cheer her up. The patient slept well, she is eating all her meals. Given the fact that she continues to be paranoid, suspicious, guarded, very limited in her thought and emotion expression she continues to need inpatient care. She will be followed up daily.
[2017-03-02 16:06] VITALS: BP 129/61
[2017-03-02 20:09] VITALS: BP 140/93
--- NOTE | 2017-03-02 20:51 | NUR ---
PT IS VISIBLE ON UNIT, SOCIALIZING AND PLAYING GAMES WITH PEERS. COOPERATIVE AND COMPLIANT WITH STAFF. NO COMPLAINTS OR SI REPORTED. PT DOES NOT APPEAR PARANOID, AND CAN BE SEEN LAUGHING AND JOKING WITH PEERS. NO COMPLAINTS OR SI REPORTED. PT HAS A STABLE MOOD AND FULL RANGE AFFECT.
[2017-03-03 12:14] VITALS: BP 117/62
--- NOTE | 2017-03-03 13:04 | NUR ---
PT IS ISOALTIVE IN ROOM AT TIMES, INTERACTING WITH STAFF AND PEERS IN THE COMMUNITY AT OTHERS. PT IS ATTENDING GROUPS. PT HAS AN IRRITABLE EDGE AT TIMES WHEN STAFF SET LIMITS. PT REFUSED 0800 VITALS THIS MORNING DESPITE STAFF PROMPTING. PT MOOD IS STABLE WTIH A FULL RANGE AFFECT. PT DENIES SI THOUGHTS.
--- NOTE | 2017-03-03 15:26 | CP SOUTH PROGRESS NOTE PSYCH ---
Psych (Inpt) Progress Note Progress Note Include the following elements, when applicable: Involvement in the active treatment of the patient with behavioral observations of the patient and the patient's response to the treatment. Review of the ongoing treatment process in the context of the treatment plan. Indication of how multi-disciplinary staff members are carrying out the treatment plan. Plans for future interventions and recommendations for revision of the treatment plan. Liaison with other physicians/providers. Progress Note: The patient was seen for follow-up during continuum of care. She continues to be up and above on the unit. According to the nursing staff, the patient has not exhibited behavioral extremes, she's eating and sleeping well, is compliant with the medication she takes. During our individual interview, the patient was irritable, upset. She said that she spoke with her mother and her mother started crying when she heard her. The patient stated also that she felt better, almost "great". When asked why she was upset she said "I'm pissed". When asked about the motives of her being upset and how it contradicts the statement that she was doing "great" she stated: "there is such a thing as being positively pissed right?". The patient denies suicidal/homicidal ideation, auditory/visual hallucinations or side effects from the medications. The lithium level is within therapeutic limits(0.9) The patient continues to be reticent regarding the information she provides, but less so. She continues to affirm that the fact that she called her mother doesn't mean that they will be "friends". We will continue present management, and discharge planning. The patient maintains her guardedness and suspiciousness, improving slowly, continues to need inpatient care.
[2017-03-03 16:03] VITALS: BP 105/69
[2017-03-03 20:26] VITALS: BP 112/80
--- NOTE | 2017-03-03 22:56 | NUR ---
PATIENT ALERT AND ORIENTED X3, INTERACTING WELL WITH PEERS, STILL PARANOID AROUND UNIT STAFF; SHE REPORTED THAT HER NAME BRACELET HAD FADED, BUT THAT SHE DIDN'T WANT A NEW ONE; SHE EDUCATED ON HOSPITAL POLICY REGARDING PATIENT IDENTIFIERS; SHE RELUCTANTLY AGREED TO WEAR A NEW WRIST BAND; PATIENT STILL WITHDRAWN FROM UNIT STAFF BUT INTERACTING WITH SEVERAL OF HER PEERS THAT SHE HAS FORMED A CONNECTION WITH; PATIENT DENIES S/I, H/I, A/H, AND V/H.
--- NOTE | 2017-03-04 06:06 | NUR ---
PATIENT SLEPT ALL NIGHT.
[2017-03-04 08:08] VITALS: BP 117/63
[2017-03-04 12:19] VITALS: BP 115/73
--- NOTE | 2017-03-04 13:00 | NUR ---
PT IS COMPLIANT AND COOPERATIVE. MOOD IS STABLE WITH A CONSTRICTED AND EUTHYMIC AFFECT. PT DENIES SI AT THIS TIME, NO COMPLAINTS OFFERED. PT HAS BEEN WITHDRAWN IN BED AT TIMES, NOTED TO BE PRESENT MORE OFTEN IN COMMUNITY TODAY. PT IS INTERACTING WITH PEERS AND STAFF. NO PARANOID THOUGHT CONTENT NOTED. PT IS ATTENDING GROUPS. VITALS ARE STABLE, APPETITE IS GOOD.
--- NOTE | 2017-03-04 13:43 | SOCIAL WORKER PROG NOTE PSYCH ---
Social Work Progress Note Progress Note Pt signed release for a family session, left message with Courtney (Mom)to set a meeting up for Saturday or Saturday, . Also, left a message with ileana John to request additional days, waiting for a call back. Met with pt she reports she is feeling her thoughts are more organized and logical. She denies safety concerns and is agreeable to having a family session, she is concerned that moving forward her parents will not trust her, and she needs to learn ways to cope and handle some of their "family dysfunction". She reports she has trouble managing some of what goes at home and will need to find way to manage stress. She is agreeable to [facility] as a step down. * March 07, 2017 at 11:[address] intake [address] [place] [address].
--- NOTE | 2017-03-04 13:50 | CP SOUTH PROGRESS NOTE PSYCH ---
Psych (Inpt) Progress Note Progress Note Include the following elements, when applicable: Involvement in the active treatment of the patient with behavioral observations of the patient and the patient's response to the treatment. Review of the ongoing treatment process in the context of the treatment plan. Indication of how multi-disciplinary staff members are carrying out the treatment plan. Plans for future interventions and recommendations for revision of the treatment plan. Liaison with other physicians/providers. Progress Note: I discussed this patient's progress to date, current mental status, treatment process in the context of the treatment plan, and discharge planning with staff/ team in the daily morning inpatient team meeting. I also met with the patient myself in individual session. OBJECTIVE: Current Medications Sig/Kirby Start time Last Medication Dose Route Stop Time Status Admin Benztropine Mesylate 1 MG Q4 HRS NEEDED PRN 03/01 1815 AC PO [place] Carbonate 450 MG 08,02/27 AC 03/04 PO 0851 Propranolol HCl 20 MG TID PRN 02/25 2145 AC 03/02 PO 203 Risperidone 2 MG 03/04 AC PO Risperidone 4 MG 03/01 DC 03/03 PO 202 Risperidone 0.25 MG Q4 HRS NEEDED PRN 02/28 1030 AC PO Laboratory Tests 03/03 0605 Toxicology [place] (0.6 - 1.2 mmol/L) 0.9 Vital Signs Date Time Temp Pulse Resp B/P B/P Pulse O2 O2 Flow FiO2 Mean Ox Delivery Rate 03/04 1219 96 115/73 03/04 0808 96.5 91 117/63 03/03 202 98.5 93 112/80 03/03 1603 94 105/69 OBJECTIVE: Chart, progress notes, labs, VS and medication list reviewed. Vital signs within normal limits. No new lab results today. Li = 0.9. Per chart review, patient was noted to take only 2mg of the 4mg of Risperdal ordered QHS, due to reported sedation. Over the weekend, she was described as paranoid, suspicious, guarded, and very limited in her thought and emotional expression . Met with patient today together with Gavi Bernstein LCSW. Patient described her thoughts as "more logical" today. Thought process did appear more organized, linear. She signed a MARIELY for her mother and agreed to have a family meeting this week. It was noted in 03/02 MD progress note the patient had stated she wanted to divorce her parents. Patient stated that she had meant this metaphorically, not literally, due to the tension within their relationship. She shared that much of the discord between her and her parents are related to her father's own mental health issues and the dysfunctional dynamics between her mother and father which she reported increases her stress. She expressed concerns about returning home to her parents' home and how it will effect her mental health. We talked about part of the benefit to IOP would be the intensive weekly schedule which would get her out of the house three times a week for three hours each day. She was agreeable to this recommendation, and stated she was supposed to follow-up at [facility] after discharge from [facility] in Fall 2015. She stated that she didn't attend because her mother didn't force her to. Informed patient that a family meeting will be held prior to discharge so that we can review extensively discharge planning and ongoing treatment needs. Reviewed with patient recommendation for Risperdal Consta given past nonadherence to medication. Patient declined option, stating "I don't like shots." Patient agreeable to continue taking po Risperdal and [place]. She presented A&O x 3. Thought process was improved, more organized and linear, and goal-directed. Cognition was grossly intact. Mood was "fine." She denied acute symptoms of anxiety and depression. She denied suicidal ideation, homicidal ideation, auditory and visual hallucinations. There was no evidence of patient responding to internal stimuli. There was no evidence of paranoia, suspiciousness, or delusions. Behavior was calm and cooperative. She easily engaged in conversation. Speech was average in rate, tone and volume. MMSE = 30/ 30. PLAN: 1. Continue monitoring for safety, mood, psychosis. 2. Will decrease Risperdal from 4mg QHS to 3mg po QHS for clear thoughts/mood stabilization. 3. Continue [place] CR 450mg BID. 4. Arrange family meeting for dispo planning. 5. Dispo planning per primary team.
--- NOTE | 2017-03-04 14:51 | SOCIAL WORKER PROG NOTE PSYCH ---
Social Work Progress Note Progress Note Family meeting set up for 03/06/17 at 1:30pm, parents agreed they would like to address some concerns for her returning home and being treatment compliant. * Insurance authorized 2 more days review on the .
[2017-03-04 16:31] VITALS: BP 106/70
[2017-03-04 19:40] VITALS: BP 132/72
--- NOTE | 2017-03-04 21:34 | NUR ---
PT IS VISIBLE ON UNIT, SOCIAL WITH SELECT PEERS AND COOPERATIVE/COMPLIANT WITH STAFF. ATTENDED WRAP UP MEETING AND PARTICIPATED. NO COMPLAINTS OR SI REPORTED. PT HAS A STABLE MOOD AND FULL RANGE AFFECT.
--- NOTE | 2017-03-05 06:05 | NUR ---
PT INCREASED SOCIAL ON EVENINGS. PT GUARDED ABOUT THOUGHTS. PT DENIES SI, HI, AND PARANOID IDEATION.
--- NOTE | 2017-03-05 11:32 | CP SOUTH PROGRESS NOTE PSYCH ---
Psych (Inpt) Progress Note Progress Note Include the following elements, when applicable: Involvement in the active treatment of the patient with behavioral observations of the patient and the patient's response to the treatment. Review of the ongoing treatment process in the context of the treatment plan. Indication of how multi-disciplinary staff members are carrying out the treatment plan. Plans for future interventions and recommendations for revision of the treatment plan. Liaison with other physicians/providers. Progress Note: I discussed this patient's progress to date, current mental status, treatment process in the context of the treatment plan, and discharge planning with staff/ team in the daily morning inpatient team meeting. I also met with the patient myself in individual session. OBJECTIVE: Current Medications Sig/Kirby Start time Last Medication Dose Route Stop Time Status Admin Benztropine Mesylate 1 MG Q4 HRS NEEDED PRN 03/01 1815 AC PO [place] Carbonate 450 MG 0800,02/27 AC 03/05 PO 0837 Propranolol HCl 20 MG TID PRN 02/25 2145 AC 03/02 PO 203 Risperidone 2 MG 03/04 DC PO Risperidone 3 MG 03/04 AC 03/04 PO 2019 Risperidone 4 MG 03/01 DC 03/03 PO 2024 Risperidone 0.25 MG Q4 HRS NEEDED PRN 02/28 1030 AC PO Vital Signs Date Time Temp Pulse Resp B/P B/P Pulse O2 O2 Flow FiO2 Mean Ox Delivery Rate 03/04 1940 98.2 98 132/72 03/04 1631 95 106/70 03/04 1219 96 115/73 ASSESSMENT: Chart, progress notes, VS, labs and medication list reviewed. HR remains mildly tachy, will continue monitoring. Vital signs otherwise within normal limits. Reviewed patient's progress to date with nursing staff, who reported the patient has been more social with peers on the unit, is less isolative and guarded. At times, she has made inappropriate comments during group that were disrespectful in nature. She has been medication adherent with no overt signs of paranoia. Met with patient individually this afternoon. She expressed feeling anxious about family meeting tomorrow with her mother. She stated yesterday she received a phone call from her mother, who overwhelmed her and led her to crying. She stated that her mother started talking to her about multiple things and did not give her a chance to talk back. She shared processing this phone call with staff last evening, but would not elaborate further on content of conversation. She stated her main concerns about tomorrow's family meeting is her mother rehashing past events. She stated that she realizes that in the past she has not made tx a priority (i.e., did not follow up with [facility] post [place] d/c), and that she would like to focus on moving forward and present. tx. She remains agreeable to follow up at [facility] post hospital discharge and continue medications. Continues to show hesitance about switching to Risperdal Chao TREVINO , stated she might be ammenable once in IOP. She verbalized her needs during tomorrow's family meeting, which include provider support if patient's mother gets of track. Patient described her mood as "a little down" d/t thinking about family meeting tomorrow. Rated depression a 3/10 (10 being the worst) and anxiety a 6/10 (10 being the worst). She denied homicidal and suicidal ideation, plans and intent. Denied auditory and visual hallucinations. There was no evidence of patient responding to internal stimuli, paranoid ideation or galileo delusions. Thought process linear, goal-directed. Cognition grossly intact. Patient tolerating medications well, denied SEs. Agreeable to continue taking as prescribed. PLAN: 1. Continue monitoring for safety, mood and thought process. 2. Continue Risperdal and [place] as prescribed. 3. Anticipate family meeting tomorrow. 4. Dispo planning - arrange for [facility] intake.
[2017-03-05 12:29] VITALS: BP 120/59
--- NOTE | 2017-03-05 13:21 | NUR ---
PT WAS BEEN WITHDRAWN AND ISOLATIVE IN BED, SLEEPING ON AND OFF. PT MOOD IS STABLE WITH A CONSTRICTED AFFECT. PT CAN HAVE AN IRRITABLE EDGE. PT DENIES SI AT THIS TIME, NO COMPLAINTS OFFERED. PT PRESENT ON UNIT FOR MEALS AND VITALS, INTERACTING WITH OTHERS. PT HAS REFUSED GROUPS. VITALS ARE STABLE, APPETITE IS GOOD.
--- NOTE | 2017-03-05 14:25 | SOCIAL WORKER PROG NOTE PSYCH ---
Social Work Progress Note Progress Note Pt reports she is having a lazy day, and excited for her family meeting, she will call her Mom and brother this evening when they get out of work. She states "I cant believe what I was thinking about my family, I don't want to hurt that at all, in fact I love them so much". She offers, "I was just so mad at them for everything that ever happen to me, but I see now they aren't all the blame". She hopes she can begin to figure out this "adulting" thing and make some obtainable goals. She denies si/hi/ah/vh. She is eager for discharge and is hoping the family session is productive and has "good vibes". Pt is being realistic, she is fearful at times of learning the balance between child and grown up, and wants to learn when to accept help, and when to make her own choices. Pt agreeable to discharge plan in place.
--- NOTE | 2017-03-05 14:29 | SOCIAL WORKER PROG NOTE PSYCH ---
Social Work Progress Note Progress Note Spoke with Mom Courtney, who seems like an advocate for her daughter and is anxious for her to be able to manage some of her stressors and take care of her responsibilities. She is eager to meet tomorrow, and has brought up some topics she thought would be helpful to discuss prior to discharge. Mom was encouraged to focus on strengths, and the present, and was informed this is a brief intervention and that her daughter would be doing more of this "work" once engaged in IOP and other outpatient opportunities.
[2017-03-05 15:55] VITALS: BP 109/68
[2017-03-05 16:24] VITALS: BP 109/68
[2017-03-05 19:52] VITALS: BP 128/65
--- NOTE | 2017-03-05 20:47 | NUR ---
PT IS CALM, COOPERATIVE WITH STAFF AND PEERS, AND COMPLIANT WITH UNIT RULES. PT IS OFTEN IN MILIEU, INTERACTING WELL WITH OTHERS. MOOD IS STABLE, AFFECT IS BRIGHT TO FULL RANGE, COMMUNICATION IS ORGANIZED AND APPEARS NORMAL IN ALL ASPECTS, AND APPETITE IS NORMAL. PT DENIES SI AT THIS TIME.
--- NOTE | 2017-03-06 05:34 | NUR ---
PT INCREASED SOCIAL WITH STAFF ON EVENINGS. PT GUARDED ABOUT THOUGHTS. FAMILY MEETING TODAY. PT DENIES SI, HI, OR PARANOID IDEATION.
--- NOTE | 2017-03-06 09:51 | CP SOUTH PROGRESS NOTE PSYCH ---
Psych (Inpt) Progress Note Progress Note Include the following elements, when applicable: Involvement in the active treatment of the patient with behavioral observations of the patient and the patient's response to the treatment. Review of the ongoing treatment process in the context of the treatment plan. Indication of how multi-disciplinary staff members are carrying out the treatment plan. Plans for future interventions and recommendations for revision of the treatment plan. Liaison with other physicians/providers. Progress Note: I discussed this patient's progress to date, current mental status, treatment process in the context of the treatment plan, and discharge planning with staff/ team in the daily morning inpatient team meeting. I also met with the patient myself in individual session. OBJECTIVE: Current Medications Sig/Kirby Start time Last Medication Dose Route Stop Time Status Admin Benztropine Mesylate 1 MG Q4 HRS NEEDED PRN 03/01 1815 AC PO [place] Carbonate 450 MG 0800,02/27 AC 03/06 PO 0903 Propranolol HCl 20 MG TID PRN 03/06 0930 UNVr PO Propranolol HCl 20 MG TID PRN 02/25 214 r 03/02 PO 03/06 0959 2036 Risperidone 3 MG 03/04 AC 03/05 PO 1951 Risperidone 0.25 MG Q4 HRS NEEDED PRN 02/28 1030 AC PO Vital Signs Date Time Temp Pulse Resp B/P B/P Pulse O2 O2 Flow FiO2 Mean Ox Delivery Rate 03/05 1952 97.9 100 128/65 03/05 1624 96 109/68 03/05 1555 96 109/68 03/05 1229 94 120/59 ASSESSMENT: Chart, progress notes, labs, VS and medication list were reviewed. Vital signs within normal limits. No new lab results today. Patient's tx progress to date was reviewed with nursing staff who described patient's behavior as more stable, much less guarded, social in the milieu and with peers. In behavioral control. No reports of SI, HI, AVH. No overt symptoms of psychosis noted. Family meeting was held today with patient, her mother and father, Gavi Benjaminmadhuri, JUANITA, and myself. Patient's tx progress to date, medication regimen , level of safety, relapse prevention of symptoms and discharge planning were reviewed and discussed. Patient's parents stated that patient appeared back at baseline, thinking clearly and as herself. They expressed concerns over her past failed treatments, medication nonadherence, and self-sabotage. Emphasized to parents that patient has shown full adherence to treatments on unit, including medication adherence, is in agreement with medications with no evidence of or reported SEs, which patient acknowledged had been a barrier in the past to her adhering to medications (particularly Haldol). Patient was in agreement to attend to IOP, follow parents rules at home, and continue medications as prescribed. Pt's parents did not express any safety concerns surrounding patient 's discharge today, given that patient returned to baseline. Again educated patient and family that patient could switch from Risperdal oral formulation to TREVINO, which patient continued to decline. Encouraged patient to consider this during IOP course to help promote med adherence. Patient and family verbalized understanding. Patient and family were in favor of discharge plan and for patient to return home to parents. Met with patient this afternoon on the date of discharge. She shared that she has been getting alot out of milieu groups, particularly symptom management group, and identified the importance of structuring a routine once discharged home. She showed improved insight, stated she is motivated to make IOP part of weekly routine and continue prescribed medications. She identified future goals to obtain a job and to be able to repay her student loans. She presented alert and oriented to person, place, time and situation. Mood was "good," non-labile and congruent with reported mood. Affect was full-range, non- labile. She easily engaged in conversation. She had no complaints. She reported sleep and appetite were good. She reported her energy level was good. She rated anxiety a 4/10 (10 being the worst) and depression a 1/10 (10 being the worst). She denied passive and active suicidal ideation, plans and intent. Denied homicidal ideation, auditory and visual hallucinations. She stated and believed she will not harm herself or others. She gave protective factors of her brother and her future. She denied auditory and visual hallucinations, paranoid ideation. There was no evidence of paranoia or delusions. Thought process was linear and goal-directed. Cognition was grossly intact. She reported tolerating medications well and denied side effects. She reported feeling safe and ready for discharge. PLAN: 1. Discharge to home into the care of mother. 2. F/u at [facility] for intake on 03/07/17 at 11:15AM. 3. All discharge prescriptions were e-prescribed to [facility] in [place], [place] today. 4. Patient was strongly advised to abstain from cannabis. She was in agreement to. 5. In the event of an emergency, call 911/go to nearest emergency department. Patient verbalized understanding of instructions.
[2017-03-06 12:34] VITALS: BP 121/52; BP 128/65
--- NOTE | 2017-03-06 12:45 | NUR ---
PT IS SCHEDULED TO BE DISCHARGED (TENTATIVE) AFTER 1330 FAMILY MEETING IF ALL GOES WELL, NO ISSSUES OR COMPLAINTS REPORTED OR OBSERVED, MOOD IS STABLE WITH FULL RANGE AFFECT AND IS APPROPRIATE ON THE UNIT, SOCIAL AT TIMES WITH PEERS AND STAFF. WHEN ASKED DIRECTLY DENIES SI/HI/HALLUCINATIONS AND NO EVIDENCE OF THE ABOVE, HAS + UNDERSTANDING OF MEDICATION REGIMENT AND FOLLOW-UP PLANNING AND MOTIVATION. INFORMATION PACKET RE: SI AND BIPOLAR & PT RESOURCE GUIDE GIVEN TO PT AND W-10/MEDICATIONBS REVIEWED WITH NO QUESTIONS OR CONCERNS. PT REPORTS OVERALL IMPROVEMENT IN MENTAL STATUS/MOOD/BEHAVIOR/SLEEP AND APPETITE.
[2017-03-06] MEDS ORDERED: RISPERDAL3 M1 PO (13:19)
[2017-03-06] MEDS ORDERED: PROPRANOLOL HCL20 M1 PO (13:20)
[2017-03-06] MEDS ORDERED: LITHIUM CARBON450 M1 PO (13:21)
--- NOTE | 2017-03-06 13:24 | DISCHARGE SUMMARY REPORT-PSYCH ---
Visit Information Visit Dates/Diagnosis' Admission Date: 02/25/17 Discharge Date: 03/06/17 Reason for Admission: Patient was brought in by ambulance on a PEER to [facility] Emergency Department on 02/23/17 for homicidal ideation towards both her parents with a plan to shoot them. Patient had been nonadherent to outpatient medications. The PEER additionally noted that the patient was "found trying to get into a residence in [place]...rambling thoughts, off Bipolar meds. Believes she is undercover for the police." Psy Discharge Primary Diag: Schizoaffective disorder, bipolar type Psy Discharge Secondary Diag: R/O Schizophrenia; R/O Substance-induced psychosis ; Cannabis use disorder. Hospital Course Significant Lab Findings: Lab Total Beta HCG NEGATIVE 02/23/17 0116 [place] < 0.2 mmol/L L 02/27/17 0600 [place] 0.9 mmol/L 03/03/17 0605 Urine Cannabis Screen 79.10 NG/ML H 02/23/17 0400 02/27/17 EKG: Sinus rhythm with a rate of 97. DC: 160. QRSD: 84. QT: 364. QTc: 463. P: 45. QRS: 54. T: 44. Normal EKG confirmed by agile java developer Dr. Son Remy. Course Complications: None. Consultations: The patient was seen for admission history and physical by liner worker Dr. Pb Austin. Please see his note for additional information. Allergies: Coded Allergies: No Known Allergies (02/23/17) Hospital Course/TX Response: The patient was monitored on unit for safety, mood, psychosis, suicidal and homicidal ideation. She participated in multimodal treatments on the unit. [place] CR 450mg BID was restarted for mood stabilization. Patient was initially started on Zyprexa up to 20mg daily in divided doses, however refused to continue medication due to day time sedation despite top loading Zyprexa at bedtime. She was resistent to retrialing Haldol which she had been discharged home on from [facility] in 2016. Patient was agreeable to trialing Risperdal for paranoia and disorganized thoughts; Risperdal 3mg QHS was started at bedtime. Propranolol 20mg TID prn was additionally started for anxiety/[place] induced tremor. Patient tolerated medications well and denied untoward medication effects. During the hospital course, the patient's mood and affect improved. Paranoia and disorganized thoughts fully resolved. Homicidal ideation towards her parents fully remitted (patient's parents were fully aware of patient's HI towards them AIRPLANE CHARTER CLERK to the emergency department). Patient consistently denied suicidal ideation, plans and intent, and auditory and visual hallucinations during the hopsital course. A family meeting was held with the patient, her mother and father, Gavi Bernstein LCSW, and Joey. Patient's tx progress to date, medication regimen, level of safety, symptom relapse prevention, education on mental illness and discharge planning were reviewed and discussed. The patient's parents stated that the patient appeared back at her baseline, thinking clearly and as herself. They expressed concerns over her past failed treatments, medication nonadherence , and self-sabotage. Emphasized to parents that patient has shown full adherence to all treatments on unit, including medication adherence, and is in agreement to continuing medications with no evidence of/or reported SEs, which the patient acknowledged had been a barrier in the past to her adhering to medications (particularly Haldol). Patient was in agreement to attend to [facility], follow her parents' rules at home, and continue medications as prescribed. The patient's parents did not express any safety concerns surrounding the patient's discharge or discharge plan. I educated both the patient and family that patient could switch from Risperdal oral formulation to TREVINO, which patient continued to decline. Encouraged patient to consider this during IOP course to help promote medication adherence. Patient and family verbalized understanding. The patient's mother agreed to assist in administering patient's medications at home. The patient was in favor of this. Patient and family were in favor of discharge plan and for patient to return home. On the date of discharge 03/06/17, the patient presented alert and oriented to person, place, time and situation. She reported her mood as "good," non-labile. Affect was full-range, non-labile. She easily engaged in conversation. She had no complaints. She reported sleep and appetite were good. She reported her energy level was good. She rated anxiety a 4/10 (10 being the worst) and depression a 1/10 (10 being the worst). She denied passive and active suicidal ideation, plans and intent. Denied homicidal ideation, auditory and visual hallucinations. She stated and also believed she will not harm herself or others. She gave protective factors of her brother and her future. She denied paranoid ideation. There was no evidence of paranoia or delusions. Thought process was linear and goal-directed. Cognition was grossly intact. She reported tolerating medications well and denied side effects. She reported feeling safe and ready for discharge. Discharge HBIPS - Tobacco Use Treatment Offered Post DC Medications Offered: NA-No Tob Use >30 days Post DC Tobacco Treatment Plan: NA-No Tobacco use >30days - EtOH/Drug Use D/O Treatment Offered Post DC Medications Offered: Med Not Indicated for D/O Post DC EtOH/SubAbuse TX Plan: [facility] SubAbuse/Dual IOP Program Appt Date: 03/07/17 Program Appt Time: 1130 Metabolic Screening - Screen if on a Neuroleptic Medication - Metabolic screening should include: - Blood Pressure, BMI, Glucose or Hgb A1c, & a - Lipid profile from within the past 365 days. Metabolic Screening () Not Applicable, patient not on a neuroleptic. OR ([X]) Patient on a neuroleptic(s) . Enter below results for Glucose or Hemoglobin A1C, and lipid panel if obtained during the last 365 days. BMI: 28.000 Blood Pressure: 128/65 Laboratory Results (If applicable): Lab Cholesterol 147 MG/DL 02/27/17 0600 Cholesterol/HDL Ratio 3 % 02/27/17 0600 HDL Cholesterol 45 mg/dL 02/27/17 0600 Hemoglobin A1c 5.3 % 02/27/17 0600 LDL Cholesterol, Calc 81 mg/dL 02/27/17 0600 Triglycerides 107 mg/dL 02/27/17 0600 Discharge Instructions General Discharge Information Discharge Medications: Discharge Medications- (Dose, route, freq, indication): START taking these NEW Home Medications: Propranolol HCl Dose: ORAL, EVERY 8 HOURS Qty: 42 Sent to (Propranolol HCl) 20 20 Milligram NEEDED as needed for Refills: 0 Pharm 1 MG TABLET ANXIETY/TREMOR Take 1 tab by mouth every 8 hours prn for anxiety/tremor. Not to exceed 3 doses/24 hours. Risperidone Dose: ORAL, AT BEDTIME for Qty: 14 Sent to (Risperdal) 3 MG 1 Tablet clear thoughts Refills: 0 Pharm 1 TABLET Take 1 tab by mouth at bedtime. [place] Carbonate Dose: ORAL, TWICE DAILY for Qty: 28 Sent to ([place] Carbonate 450 Milligram mood stabilization Refills: 0 Pharm 1 ER) 450 MG TABLET.ER Take 1 tab by mouth QAM and QPM. 1: [id number], [address] [place] [address] Your Preferred Pharmacy [id number] [address] [place] [address] Multiple Neuroleptics: ([X]) Not Applicable OR Document below three failed attempts at monotherapy, or a plan to taper to monotherapy, or augmentation of Clozapine. () Patient's Diet: Regular. Patient's Activity: No restrictions. DC Disposition: Patient to return to home and parents. Recommendations: The patient was advised to please take medications as prescribed. She was strongly advised to abstain from cannabis use. She was advised to attend scheduled [facility] IOP intake and participate in program. She was advised that in the event of an emergency, to call 911/go to nearest emergency department. Patient verbalized understanding of all instructions. *Recommend considering switch from Risperdal po formulation to Risperdal Consta during IOP course given patient's skilled nursing history of medication nonadherence* Referred To: Post Discharge Referrals Provider Referral Service Date: 03/07/17 Referred To: [facility] Intensive Outpatient Program Notes: [address] [place] [address] (t)[phone] *IOP intake appointment scheduled on 03/07/17 at 11:30AM. Copies To: [facility]
--- NOTE | 2017-03-06 15:07 | SOCIAL WORKER PROG NOTE PSYCH ---
Social Work Progress Note Progress Note Family meeting and confirmed discharge. Pt and Mom and Dad got to voice concerns and make arrangements for their daughter as she returns to their home. THey asked for cues to watch out for in regards to mental health no compliance with medication or treatment. They addressed and pt agreed to no car for now, and she can earn trust etc. by attending IOP and taking medications as prescribed. Pt agrees and feels confident with this plan, as well as talking with her brother for additional support. She denies si/hi/ah/vh.
== END 2017-03-06 15:00 | DRG 885 ==
LOC: ERH 00:29 → ERHI 02-25 12:21 → CP SOUTH 02-25 12:21 → ENRESERV 02-25 23:59 → CP SOUTH 03-01 16:47
PROVIDERS: Pediatrics; Registered Nurse Psychiatric/Mental Health; ADMIT Psychiatry & Neurology Psychiatry
DX: F25.0 Schizoaffective disorder, bipolar type (principal); F12.10 Cannabis abuse, uncomplicated
CPT/HCPCS: 36415; 80307; 93005; 93010; G0463; G0480; J3490

== ENCOUNTER 2017-03-28 18:23 | Inpatient (IN) | payer OTHER ==
[~2017-03-28] VITALS: Ht 152.4 cm; Wt 71.7 kg
[~2017-03-28 18:23] MED LIST: LITHIUM CARBON450 M1 PO; PROPRANOLOL HCL20 M1 PO; RISPERDAL3 M1 PO
--- NOTE | 2017-03-28 18:37 | NUR ---
TRIAGE: CURRENTLY IN IOP AND DISCHARGED FROM [facility] ON MARCH 06. PT STATES "I FEEL LIKE I HAVE SWELLING IN MY BRAIN." AND REPORTS WANTING TO STAB HERSELF IN THE HEAD AND HAVE HER DAD TELL THE POLICE SHE TRIED TO KILL HIM SO SHE COULD HAVE THEM COME AND SHE COULD ACT OUT AND HAVE POLICE KILL HER TO TAKE AWAY HER PAIN. PT HAS BEEN ON LITHIUM BUT RECENTLY DC'ED HER RISPERDAL DUE TO HOW IT MAKES HER FEEL. MOTHER CONFIRMS INCREASE IN PARANOIA AND WAS EVALED BY DR PEREA WHO RX'ED SEROQUEL LAST NIGHT. HAS ONLY HAD TWO DOSES. DENIES HI. DENIES AUDITORY OR VISUAL HALLUCINATIONS. CALM AND COOPERATIVE IN TRIAGE. PT WAS ABLE TO DEMONSTRATE INSIGHT INTO ILLNESS AND ASKED MOM TO BRING HER TO ED. FEELS LIKE SHE IS FALLING INTO A HOLE FROM HER PTSD. APPEARS DEPRESSED WITH WITHDRAWN, FLAT AFFECT. ENDORSES DYSPHORIA AND ANHEDONIA. DENIES ETOH/ILLICIT DRUGS. PT AND MOTHER AWARE OF PLAN FOR BLOODWORK, URINE TESTING, CHANGING AND EVAL BY MD AND CRISIS. IN AGREEMENT WITH PLAN.
--- NOTE | 2017-03-28 18:48 | ED PSYCHIATRIC COMPLAINT ---
See Addendum History of Present Illness General Chief Complaint: Psychiatric Related Complaint Stated Complaint: PT IS POSITIVE SI Source: patient, family Exam Limitations: no limitations Vital Signs & Intake/Output Vital Signs & Intake/Output Vital Signs Date Time Temp Pulse Resp B/P B/P Pulse O2 O2 Flow FiO2 Mean Ox Delivery Rate 03/30 0724 98.7 76 18 126/84 98 Room Air 03/30 0628 98.6 86 16 122/68 97 Room Air 03/30 0206 98.1 76 20 118/76 98 Room Air 03/29 2209 98.2 88 18 117/76 100 03/29 1756 97.2 105 18 121/63 98 Room Air 03/29 1024 97.6 107 20 134/73 06 1021 98.6 108 20 134/73 99 Room Air Allergies Coded Allergies: No Known Allergies (02/23/17) Reconcile Medications [place] Carbonate ([place] Carbonate ER) 450 MG TABLET.ER 450 MG PO BID mood stabilization Take 1 tab by mouth QAM and QPM. Multivitamin (Multi-Day Vitamins) 1 EACH TABLET 1 TAB PO DAILY SUPPLEMENT ( Reported) Propranolol HCl 20 MG TABLET 20 MG PO Q8P PRN ANXIETY/TREMOR Take 1 tab by mouth every 8 hours prn for anxiety/tremor. Not to exceed 3 doses/24 hours. Quetiapine Fumarate (Seroquel XR) 50 MG (3)-200 MG (1)-300 MG (11) [id number] 1 TAB PO AD MENTAL HEALTH (Reported) Risperidone (Risperdal) 3 MG TABLET 1 TAB PO AT BEDTIME clear thoughts Take 1 tab by mouth at bedtime. Sertraline HCl (Unknown Strength) TABLET (Unknown Dose) UNKNOWN (Reported) Triage Note: TRIAGE: CURRENTLY IN IOP AND [facility]. PT STATES "I FEEL LIKE I HAVE SWELLING IN MY BRAIN." AND REPORTS WANTING TO STAB HERSELF IN THE HEAD AND HAVE HER DAD TELL THE POLICE SHE TRIED TO KILL HIM SO SHE COULD HAVE THEM COME AND SHE COULD ACT OUT AND HAVE POLICE KILL HER TO TAKE AWAY HER PAIN. PT HAS BEEN ON LITHIUM BUT RECENTLY DC'ED HER RISPERDAL DUE TO HOW IT MAKES HER FEEL. MOTHER CONFIRMS INCREASE IN PARANOIA AND WAS EVALED BY DR PEREA WHO RX'ED SEROQUEL LAST NIGHT. HAS ONLY HAD TWO DOSES. DENIES HI. DENIES AUDITORY OR VISUAL HALLUCINATIONS. CALM AND COOPERATIVE IN TRIAGE. PT WAS ABLE TO DEMONSTRATE INSIGHT INTO ILLNESS AND ASKED MOM TO BRING HER TO ED. FEELS LIKE SHE IS FALLING INTO A HOLE FROM HER PTSD. APPEARS DEPRESSED WITH WITHDRAWN, FLAT AFFECT. ENDORSES DYSPHORIA AND ANHEDONIA. DENIES ETOH/ILLICIT DRUGS. PT AND MOTHER AWARE OF PLAN FOR BLOODWORK, URINE TESTING, CHANGING AND EVAL BY MD AND CRISIS. IN AGREEMENT WITH PLAN. Triage Nurses Notes Reviewed? yes Onset: Abrupt Duration: day(s): (2), constant, getting worse Timing: recent history Severity: severe Severity Numbers: 10 Associated Symptoms: insomnia, suicidal ideation : No Patient currently breastfeeds: No HPI: Is a 22-year-old female history of PTSD and bipolar currently in IOP and has been compliant with lithium and Seroquel of which she was prescribed yesterday presents with her mother for evaluation for worsening depression per her mother she stated that she was hoping the police drive by the house and just shoot her today. She also picked up a knife however her father talked her down. The patient was recently admitted here for psychosis she was discharged home on Risperdal lithium however she states that her face was swelling and was told to stop the Risperdal. Her mother states that she was doing well for a few days however the past 2 days symptoms being worse. She denies any alcohol or drug use. No homicidal ideation. No modifying factors or associated symptoms. (DARCIE NGUYEN) Past History Travel History Traveled to [place] past 21 day No Medical History Any Pertinent Medical History? see below for history Neurological: NONE EENT: NONE Cardiovascular: NONE Respiratory: NONE Gastrointestinal: NONE Hepatic: NONE Renal: NONE Musculoskeletal: NONE Psychiatric: bipolar disease Endocrine: NONE Blood Disorders: NONE Cancer(s): NONE JOB RECRUITER/Reproductive: NONE History of MRSA: No History of VRE: No History of CDIFF: No Surgical History Surgical History: unobtainable Psychosocial History Who do you live with Family What is your primary language East Timorese Tobacco Use: Current Not Daily Family History Hx Contributory? No (DARCIE NGUYEN) Review of Systems Review of Systems Constitutional: Reports: see HPI. All Other Systems: Reviewed and Negative Comments Review of systems: See HPI, All other systems negative. Constitutional, no chills no fever, no malaise HEENT: no sore throat no congestion Cardiovascular: No chest pain , no palpitation Skin: no rashes, no change in skin Respiratory: No dyspnea no cough no sputum no hemoptysis GI: No nausea no vomiting, no diarrhea, no bloating : No dysuria No hematuria Muscle skeletal: No joint pain, , no back pain, no neck pain, Neurologic: no headache Psych: see hpi Heme/endocrine: No bruising no bleeding Immunology: No lymphadenopathy (DARCIE NGUYEN) Physical Exam Physical Exam General Appearance: well developed/nourished, no apparent distress, alert Neurological/Psychiatric: awake, calm Appearance/Memory/Insight: disheveled Behavoir/Eye Contact/Speech: avoids eye contact Thoughts/Hallucinations: normal thought pattern Comments: Well-developed well-nourished person in no acute distress HEENT: Normal EENT exam; PERRL, EOMI. HEAD is atraumatic. moist mucous membranes. Neck: Supple,normal range of motion Back: Nontender. Full range of motion Cardiovascular: Regular rate and rhythms no murmurs rubs Respiratory: No respiratory distress. Patient speaking in full complete sentences. Breath sounds clear to auscultation bilaterally: NO W/R/R Abdomen: Soft, nontender nondistended Extremity: No edema, full range of motion of extremitie Neuro: Alert oriented x3, motor sensory normal, There were no obvious focal neurologic abnormalities. Skin: No appreciable rash on exposed skin, skin is warm and dry. Psych: Flattened affect, memory and judgment is normal. SAD PERSONS SAD PERSONS Response Value Depression/Hopelessness? yes 2 Previous Attempts/Psych Care yes 1 Rational Thinking Loss? yes 2 Social Support? has support 0 Total 5 SAD PERSONS Done? yes (DARCIE NGUYEN) Progress Differential Diagnosis: drug intoxication, drug withdrawal, electrolyte abnormality, encephalitis, depression bipolar psychosis Plan of Care: Current Medications Sig/Kirby Start time Last Medication Dose Stop Time Status Admin Propranolol HCl 20 MG BID 03/29 2200 UNVr (Inderal 20 MG Tablet) Lorazepam 1 MG TID PRN 03/29 2000 AC (Ativan) [place] Carbonate 450 MG BID 03/29 1000 UNVr 03/29 (Eskalith Cr) 1024 Propranolol HCl 20 MG Q8P PRN 03/29 0945 AC 03/29 (Inderal 20 MG 1024 Tablet) Quetiapine Fumarate 50 MG ONCE ONE 03/29 945 CAN (SEROquel) 06/09 0946 Labs ordered old records reviewed Case discussed with and signed out to Dr. maya at 1 am pending crisis consult (DARCIE NGUYEN) Hand-Off Endorsed To: WHIT MAYA MD Endorsed Time: 010 Pending: consult (crisis) (DARCIE NGUYEN) Hand-Off Endorsed To: STACEY RODRIGUEZ MD Endorsed Time: 07 Pending: consult (no eval yet) (WHIT MAYA MD) Hand-Off Endorsed To: AMANDA MILAN MD Endorsed Time: 07 Pending: consult (re-evaluation) (JOSELUIS CORRAL MD) Departure Departure Disposition: STILL A PATIENT Condition: Stable Clinical Impression Primary Impression: Depression Referrals: ELIER PERALTA MD (PCP/Family) Departure Forms: Customer Survey General Discharge Information (DARCIE NGUYEN) PA/PLATE PAINTER Co-Sign Statement Statement: ED Attending supervision documentation- [] I saw and evaluated the patient. I have also reviewed all the pertinent lab results and diagnostic results. I agree with the findings and the plan of care as documented in the PA's/PLATE PAINTER's documentation. [x] I have reviewed the ED Record and agree with the PA's/PLATE PAINTER's documentation. [] Additions or exceptions (if any) to the PAs/PLATE PAINTER's note and plan are summarized below: [] (JOSELUIS CORRAL MD) PA/PLATE PAINTER Co-Sign Statement Statement: ED Attending supervision documentation- [] I saw and evaluated the patient. I have also reviewed all the pertinent lab results and diagnostic results. I agree with the findings and the plan of care as documented in the PA's/PLATE PAINTER's documentation. [] I have reviewed the ED Record and agree with the PA's/PLATE PAINTER's documentation. [] Additions or exceptions (if any) to the PAs/PLATE PAINTER's note and plan are summarized below: [] (AMANDA MILAN MD) as documented in the PA's/PLATE PAINTER's documentation. [x] I have reviewed the ED Record and agree with the PA's/PLATE PAINTER's documentation. [] Additions or exceptions (if any) to the PAs/PLATE PAINTER's note and plan are summarized below: [] (JOSELUIS CORRAL MD)
--- NOTE | 2017-03-28 18:51 | NUR ---
BLOOD DRAWN AND SENT. LAV,SST,BLUE
[2017-03-28 19:01] LABS: ABSOLUTE BASOPHIL COUNT 0.1 /CUMM (0.0-0.2); ABSOLUTE EOSINOPHIL COUNT 0 /CUMM (0.0-0.7); ABSOLUTE GRANULOCYTE CT 12.5 /CUMM (1.4-6.5); ABSOLUTE LYMPH COUNT 2.3 /CUMM (1.2-3.4); ABSOLUTE MONOCYTE COUNT 0.7 /CUMM (0.10-0.60); BASOPHIL % 0.5 % (0.0-2.0); EOSINOPHIL % 0.1 % (0-5); GRANULOCYTE % 80.4 % (42.2-75.2); HEMATOCRIT 39.7 % (37-47); MEAN CORPUSCULAR HGB 28.1 PG (27.0-31.0); MEAN CORPUSCULAR HGB CONC 32.9 G/DL (33.0-37.0); MEAN CORPUSCULAR VOLUME 85.5 FL (81.0-99.0); MEAN PLATELET VOLUME 8.1 FL (7.4-10.4); PLATELET COUNT 353 /CUMM (130-400); RBC DISTRIBUTION WIDTH 13.4 % (11.5-14.5); RED BLOOD CELL CT 4.64 /CUMM (4.20-5.40); WHITE BLOOD CELL COUNT 15.6 /CUMM (4.8-10.8)
[2017-03-28] MEDS ORDERED: SEROQUEL XR1 EACH PO (19:01)
[2017-03-28] MEDS ORDERED: MULTI-DAY VITA1 EACH PO (19:03)
[2017-03-28] MEDS ORDERED: SERTRALINE HCL25 MG (19:03)
--- NOTE | 2017-03-28 19:14 | NUR ---
PT TO HALLWAY, WANDED BY SECURITY, CHANGED INTO BLUE SCRUBS, URINE COLLECTED BY SITTERS. PT EVALUATED BY PA WITH MOTHER AT BEDSIDE. MOTHER IS PROVIDING MOST ANSWERS DESPITE MOTHER ENCOURAGING PT TO ANSWER FOR HERSELF. PT WITH VERY FLAT AFFECT, SPEAKING VERY SOFTLY WHEN SHE SPEAKS AT ALL.
[2017-03-28 19:47] LABS: LITHIUM 0.8 mmol/L (0.6-1.2)
--- NOTE | 2017-03-28 21:14 | NUR ---
WITH MUCH CONVINCING FROM RN AND MOTHER PT TOOK DAILY MEDS. PT VERY ANXIOUS, VISIBLY TREMBLING R/T ANXIETY, SOBBING, STATING "I WANT TO BE BABATUNDE BUT I'M NOT RIGHT NOW AND I DON'T KNOW HOW" "IF I TAKE THE MEDICINE IT'LL KILL ME" "I DON'T WANT THAT, I DON'T WANT TO BE BIPOLAR ANYMORE." PT EVENTUALLY DID TAKE MEDS ONLY WITH MOTHER CONSOLING/HUGGING HER AND PRAYING WITH HER AFTER MEDS TAKEN. ASKING FOR "THE HOLY WATER FROM HOME" WHICH MOTHER STATES WILL BE BROUGHT IN "LATER." CURRENTLY MAKING NO ATTEMPTS TO LEAVE. SITTERS IN ATTENDANCE.
--- NOTE | 2017-03-28 21:25 | NUR ---
PT AND MOTHER INFORMED STILL AWAITING DELIVERY OF BOX LUNCHES. NO OTHER REQUESTS AT THIS TIME. PT REMAINS ANXIOUS BUT COOPERATIVE CURRENTLY.
--- NOTE | 2017-03-28 21:56 | NUR ---
PT MET WITH CRISIS WITH MOTHER IN CONSULT ROOM, BOX LUNCH PROVIDED FOLLOWING CRISIS EVAL.
--- NOTE | 2017-03-28 22:00 | ED PSY CRISIS COLLATERAL NOTE ---
Collateral Note Collateral Note Family/Inform/Keagan Contacts: SW met with the patients mother, Courtney Kennedy ([phone]), for collateral information. Courtney notes that the patient has been struggling with her mental health issues since she was 17 years old and has had 5 inpatient hospitalizations. Martha notes that the patient has been diagnosed with Bipolar Disorder, with psychosis. Courtney reports that the patient was last hospitalized on [facility] in February 2017 and was discharged to follow up with [facility] at [facility]. Per Courtney she has been attending [facility] and was doing well, until the patient was taken off her Risperdal. Courtney noticed that shortly after stopping the Risperdal that the patient began decompensating, with worsening symptoms of depression and psychosis. Courtney notes that over the last week the patient has been very anxious, talking about GOD, talking about suicide and has been paranoid. Courtney reports that the patient has never made any suicidal statements in the past and today the patient grabbed a knife and stated that she (Pt.) wanted the police to think that she (pt.) was going to kill her father (Priscilla ) and therefore they would kill her (pt). Courtney believes that the patients biggest issue is acceptance of her diagnosis and treatment and medication non-compliance. Courtney would like the IOP staff to be contacted in the AM, as well as herself for coordination of care.
--- NOTE | 2017-03-28 22:01 | NUR ---
SW attempted to evaluate the patient, however she was very lethargic and not appropriate for evaluation. The patient only made one statement and it was, " I feel like my spirit is hiccuping." XANDER did meet with her mother, Courtney Kennedy for collateral information. The patient will be held overnight and evaluated by Crisis in the AM.
--- NOTE | 2017-03-28 22:31 | NUR ---
PT ALERT AND ORIENTED, CALM COPERATIVE AT THIS TIME, PT AWARE THAT SHE IS TO REMAIN IN ER OVER NIGHT AND HAVE CRISIS RE-EVAL IN THE AM
--- NOTE | 2017-03-28 23:17 | NUR ---
PT WAVING NURSE OVER STATING SHE HAD ONE BRIEF EPISODE OF PALPITATIONS. D/W PA. PT OFFERED ATIVAN FOR ANXIETY AND WITH MUCH ENCOURAGEMENT TOOK PO ATIVAN NOW. EATING BOX LUNCH ON STRETCHER, CURRENTLY CALM AND COOPERATIVE THOUGH VERY NERVOUS/SUSPICIOUS OF ANY INTERVENTION. SITTERS IN ATTENDANCE.
--- NOTE | 2017-03-29 01:56 | NUR ---
PT RESTING ON STRETCHER. NO APPARENT DISTRESS NOTED. SITTERS IN PLACE. WILL CONTINUE TO MONITOR.
--- NOTE | 2017-03-29 03:43 | NUR ---
PT RESTING COMFORTABLY ON BED. NO APPARENT DISTRESS NOTED. SITTER IN PLACE. WILL CONTINUE TO MONITOR.
--- NOTE | 2017-03-29 05:14 | NUR ---
PT CONTINUES TO REST ON STRETCHER. NO APPARENT DISTRESS NOTED. WILL CONTINUE TO MONITOR.
--- NOTE | 2017-03-29 06:33 | NUR ---
PT AWAKENED FOR VITALS. NO APPARENT DISTRESS NOTED. SITTER REMAINS IN PLACE.
--- NOTE | 2017-03-29 06:42 | NUR ---
LIZY, PT'S MOTHER [phone].
--- NOTE | 2017-03-29 07:14 | NUR ---
REC'D REPORT AND ASSUMED CARE OF PT
--- NOTE | 2017-03-29 07:22 | NUR ---
PT RESTING ON STRETCHER, EYES CLOSED
--- NOTE | 2017-03-29 08:33 | NUR ---
PT WITH FAMILY AT BEDSIDE. TEARFUL. DENIES NEED FOR ASSISTANCE AT THIS TIME
--- NOTE | 2017-03-29 08:57 | NUR ---
PT AND MOTHER WITH COUNTERINTELLIGENCE/HUMINT SPECIALIST
--- NOTE | 2017-03-29 09:36 | ED PSYCH CRISIS CONSULTATION ---
Crisis Consult Basic Assessment Date of Consult: 03/29/17 Responsible Person/Accompanied By: accompanied by Mom at bedside Insurance Authorization: Insurance #1: Insurance name: [employer] Phone number: Policy number: [id number] Group number: [id number] Authorization number: ED Provider: Patient's ED Provider: DARCIE NGUYEN Primary Care Physician: Patient's PCP: ELIER PERALTA MD PCP's Current Psychiatrist: KAYCEE CEJA Chief Complaint: Psychiatric Related Complaint Patient's Quote: "My brain is bleeding." Present Illness: Pt is a 22 yo female who presents for evaluation due to SI and psychosis. Pt presents with as flat affect speech is incoherent and barely audible as she speaks in mumbled whispers whispers. "I need to speak top a Doctor because my brain is bleeding." This clinician was not able to make out anything else pt expressed. Pt is accompanied by her mother at bed side. Therefore, Crisis eval was limited and based largely on collateral from pt's Mom and Pt's IOP clinician January. Per pts mother, Courtney Kennedy ([phone]), pt has been struggling with her mental health issues since she was 17 years old and has had 5 inpatient hospitalizations. Mom explained that patient has been diagnosed with Bipolar Disorder, with psychosis. Courtney reports that the pt was last hospitalized on [facility] in February 2017 and was discharged to follow up with IOP at [facility]. Pt has been attending IOP and was doing well, until the patient was taken off her Risperdal due to facial swelling. Mom noticed that shortly after stopping the Risperdal that the patient began decompensating, with worsening symptoms of depression and psychosis. Mom explained that over the last week pt has been very anxious, talking about GOD, talking about suicide and has been paranoid. Mom reports that pt has never made any suicidal statements in the past and last night pt grabbed a knife and stated that she (Pt) wanted the police to think that she (pt) was going to kill her father (Courtney's ) and therefore they would kill her (pt). Mom believes that the patients biggest issue is acceptance of her diagnosis and treatment and medication non-compliance. Mom emphasized the importance of pt being admitted to [facility] and not transferred elsewhere because not only would it be best for continuity of care as pt is in IOP, but also if pt is send elsewhere it could potentially worsen her PTSD sx. Per January, pt has been decompensating and there is great concern regarding her sx. She strongly recommends inpt psych tx. She informed that Pt has been making paranoid, delusional nonsensical statements such as expressing that when she was [facility] they did brain surgery on her. january informed that when pt was in IOP on 03/27, Dr. Gilliland was asked to evaluate pt for a PEC due to concerns about her psychiatric decompensation, but he did not feel at the time that pt was committable, but not pt sx have continued to decompensate. Case reviewed with Dr. Bryan and accounts supervisor Justine Sagastume. pt is in need of psychiatric hospitalization as she is gravely disabled at this time and a danger to self and others. pt will be placed on a PEC. It was determined that based on pt's clinical needs, pt should be admitted to [facility] when a bed becomes available as it is anticipated that a bed will become available possibly this evening and if not this evening, then likely tomorrow. Patient's Address: [address] [place] [address] Other Phone Number: Who Do You Live With? Family Family/Informants Interviewed: Mom and Therapist Allergies - Coded Allergies: No Known Allergies (02/23/17) Current Medications - Scheduled Medications [place] Carbonate ([place] Carbonate ER) 450 MG TABLET.ER 450 MG PO BID mood stabilization #28 TAB Prescribed by FLAVIA HONG APRN on 03/06/17 Multivitamin (Multi-Day Vitamins) 1 EACH TABLET 1 TAB PO DAILY SUPPLEMENT ( Reported) Entered as Reported by NAVJOT JEREZ on 03/28/17 190 Quetiapine Fumarate (Seroquel XR) 50 MG (3)-200 MG (1)-300 MG (11) [id number] 1 TAB PO AD MENTAL HEALTH #14 (Reported) Entered as Reported by NAVJOT JEREZ on 03/28/17 190 Risperidone (Risperdal) 3 MG TABLET 1 TAB PO AT BEDTIME clear thoughts #14 TAB Prescribed by FLAVIA HONG APRN on 03/06/17 Last Taken: Unknown Dose at an unknown date and time Scheduled PRN Medications Propranolol HCl 20 MG TABLET 20 MG PO Q8P PRN ANXIETY/TREMOR #42 TAB Prescribed by FLAVIA HONG APRN on 03/06/17 Miscellaneous Medications Sertraline HCl (Unknown Strength) TABLET (Unknown Dose) UNKNOWN #14 (Reported ) Entered as Reported by NAVJOT JEREZ on 03/28/17 190 Laboratory Results: Laboratory Tests 03/28/17 1857: Urine Opiates Screen < 100.00, Methadone Screen < 40, Barbiturate Screen < 60, Ur Phencyclidine Scrn < 6.00, Amphetamines Screen < 100, U Benzodiazepines Scrn < 85, Urine Cocaine Screen < 50, Urine Cannabis Screen 6.50 03/28/17 1848: Anion Gap 13, Estimated GFR > 60, BUN/Creatinine Ratio 12.9, Glucose 98, Calcium 10.3 H, Total Bilirubin 0.5, AST 16, ALT 25, Alkaline Phosphatase 85, Total Protein 7.6, Albumin 4.7, Globulin 2.9, Albumin/Globulin Ratio 1.6, CBC w Diff NO MAN DIFF REQ, RBC 4.64, MCV 85.5, MCH 28.1, RDW 13.4, MPV 8.1, Gran % 80.4 H , Lymphocytes % 14.6 L, Monocytes % 4.4, Eosinophils % 0.1, Basophils % 0.5, Absolute Granulocytes 12.5 H, Absolute Lymphocytes 2.3, Absolute Monocytes 0.7 H, Absolute Eosinophils 0, Absolute Basophils 0.1, PUBS MCHC 32.9 L, [place] 0.8, Serum Alcohol < 10.0 03/28/17 183: Sodium Cancelled, Potassium Cancelled, Chloride Cancelled, Carbon Dioxide Cancelled, Anion Gap Cancelled, BUN Cancelled, Creatinine Cancelled, BUN/ Creatinine Ratio Cancelled, Glucose Cancelled, Calcium Cancelled, Total Bilirubin Cancelled, AST Cancelled, ALT Cancelled, Alkaline Phosphatase Cancelled, Total Protein Cancelled, Albumin Cancelled, Globulin Cancelled, Albumin/Globulin Ratio Cancelled, Serum Alcohol Cancelled (ALETHEA MARIO LCSW) Addendum Addendum Crisis met with the pt who presented alert, calm and confused about the reasons she is in the ED. The pt stated she did not know the plan was for hospitalization on [facility] even though this was previously explained to the pt. The pt stated she does not want to restart her [place] which she stopped "because it was doing things to my brain." The pt reports she has a history of anxiety. The pt stated her parents are only allowing her to return home if she takes her [place]. Addressed with the pt she is on a PEC with the plan for admission to [facility] on 03/30/17. (OPHELIA GLASGOW,LIANG GODOY) Past History Past Medical History Neurological: NONE EENT: NONE Cardiovascular: NONE Respiratory: NONE Gastrointestinal: NONE Hepatic: NONE Renal: NONE Musculoskeletal: NONE Psychiatric: bipolar disease Endocrine: NONE Blood Disorders: NONE Cancer(s): NONE [employer] AGENT/Reproductive: NONE Past Surgical History Surgical History: unobtainable Psychosocial History Strengths/Capabilities: Patient is a college graduate Patient likes to read to educate herself on various topics Physical Limitations (Interventions): None reported. Psychiatric Treatment History Psych Treatment Psychiatric Treatment Yes Inpatient Treatment Yes Outpatient Treatment Yes Location of Treatment [facility] Reason for Treatment bipolar with psychotic features Dates of Treatment ongoing Response to Treatment variable Diagnosis by History: Bipolar Disorder with psychotic features Substance Use/Abuse History Drug Use/Abuse Substances Used/Abused No Substance Abuse Treatment Substance Abuse Treatment Past Substance Abuse [place] No Inpatient Treatment No Outpatient Treatment No (ALETHEA MARIO LCSW) Current Mental Status Mental Status Orientation: Confused Affect: Blunted, Constricted, Flat Speech: Delayed, Evasive, Incoherent, Mumbled, Perseveration, Poverty, Soft Neuro-vegetative: Concentration Poor Appearance Appearance- Dress/Hygiene: unkempt disheveled, poot eye contact Behaviors Thought Process: Disorganized, Irrational, Loose Association, Thought Blocking Thought Content: Delusions, Paranoid, Mandaeism Memory: Impaired Insight: Poor SI/HI Risk Assessment Past Suicidal Ideation/Attempts No Current Suicidal Ideation/Att Yes Past Homicidal Ideation/Att: Yes Current Homicidal Ideation/Attempts Yes Degree of Intent: Plan Danger To: Others, Self Gravely Disabled: Inability, Lack of Insight, Poor Impulse Control, Poor Judgment Risk Factors: age (under 24/over 65), access to lethal means, high anxiety/ distress, history of Violence, SA/MH hospitalized, poor impulse control Lethality Ratin PTSD Checklist PTSD Done? pt unable to participate ED Management Sitter: Yes Restraints: No (ALETHEA MARIO LCSW) DSM5/PS Stressors/Medical Prob Diagnosis' (DSM 5, Stressors, Medical): F31.5 Bipolar current episode depressed with psychotic features F43.10 PTSD Current GAF: 20 (ALETHEA MARIO LCSW) Departure Disposition Psych Medical Clearance Date: 03/29/17 Medically Cleared at: 1000 Time Started: 1000 Time Ended: 1100 Psychiatrist Consulted: Renea Bryan MD Date Disposition Established: 03/29/17 Time Disposition Established: 1100 Plan for Disposition - Modality: Inpatient Psychiatry Facility: [facility] Rationale for Disposition: safety and stabilization of sx Type of IP Admission: PEC Referrals FABIAN BARONE,ELIER Solis (PCP/Family) (ALETHEA MARIO LCSW) Addendum Note Addendum SW attempted to meet with the patient this AM, to inform her of the plan for admission to [facility] and to complete reassessment, however the patient was not willing to participate. The patient repeated multiple times that she "does not want to talk now," and refused to answer any questions. When SW explained that she would be admitted to [facility], the patient appeared confused and to be experiencing thought blocking. The patient then began to stare at the wall and her tray and did not engage further. Case discussed with Dr. Lucy Hoffman and the patient will be a PEC admission to [facility]. Case also discussed with Dr. Tim and the patients mother Courtney, is aware of the plan and very appreciative. (DAT GRANT,SUDHA)
--- NOTE | 2017-03-29 09:53 | NUR ---
PT TEARFUL. MEDICATIONS ORDERED
--- NOTE | 2017-03-29 10:26 | NUR ---
PT EXTREMELY ANXIOUS AND TEARFUL. MOTHER REMAINS AT SIDE. PER PT: "I JUST WANT MY LEFT AND RIGHT BRAIN TO BE THE SAME. MY RIGHT BRAIN IS CALM AND MY LEFT BRAIN IS A DARK HOLE". PT NEEDED MUCH TIME AND DISCUSSION FOR MEDICATION ADMINISTRATION.
--- NOTE | 2017-03-29 11:02 | NUR ---
PT RESTING COMFORTABLY IN NAD. MOTHER HAS LEFT HOSPITAL UNTIL LATER
--- NOTE | 2017-03-29 12:44 | NUR ---
PT RESTING CALM AND COOPERATIVE ON STRETCHER IN HALLWAY. PT ATE LUNCH AND WAS AMBULATORY TO RESTROOM WITH STEADY GAIT. SITTER AT BEDSIDE.
--- NOTE | 2017-03-29 14:01 | NUR ---
PT SLEEPING ON STRETCHER IN HALLWAY. RESPIRATIONS EQUAL AND UNLABORED. SITTER AT BEDSIDE.
--- NOTE | 2017-03-29 16:00 | NUR ---
PT REQUESTED TO SPEAK WITH THIS RN. PT REPORTS THAT SHE FEELS "FOGGY". PT EXPRESSED HER THOUGHTS ABOUT DOING A MEDWASH AND THEN BEING RE-EVALUATED FOR A NEW MEDICATION. PT STATED THAT SHE FEELS "HER BODY HAS TO BE HEALTHY". SITTER AT DOOR.
--- NOTE | 2017-03-29 17:15 | NUR ---
PT'S MOTHER AT BEDSIDE ASKING WHY PT HAS NOT SEEN A PSYCHIATRIST TODAY. THIS RN ADVISED HER THAT SHE WOULD BE ADMITTED TOMORROW MORNING TO [facility]. PT ARGUING WITH HER MOTHER ABOUT HER TREATMENT PLANS.
--- NOTE | 2017-03-29 19:00 | NUR ---
PT STANDING IN DOORWAY TO ROOM 17 DISCUSSING WITH HER MOTHER THE NEED FOR MEDICATIONS AND WHERE SHE WILL LIVE AFTER D/C FROM [facility]. PT STATES SHE IS "WORRIED MY MOM IS TALKING TO DR MARMOLEJO BEHIND MY BACK". PT STATES THAT SHE WILL NOT TAKE HER LITHIUM DOSE TONIGHT AND WANTS TO SPEAK WITH PSYCHIATRIC MD IN THE MORNING ABOUT TRYING A NEW MEDICATION. SITTER AT DOOR. PT IS ABLE TO REMAIN IN GOOD BEHAVIORAL CONTROL AT THIS TIME, BUT IS WANDERING IN AND OUT OF ROOM 17.
--- NOTE | 2017-03-29 20:01 | NUR ---
PT'S FATHER AT BEDSIDE. PT CALM AND COOPERATIVE AT THIS TIME. SITTER AT DOOR. PT REQUESTING TO SEE DR CORRAL
--- NOTE | 2017-03-29 21:15 | NUR ---
CRISIS AT BEDSIDE TO ADVISE PT OF PLAN TO BE ADMITTED TO [facility] IN THE MORNING. PT STATED TO THIS RN "I DON'T THINK I WILL MAKE IT TO [facility]". WHEN ASKED WHY PT STATED "MY PARENTS WANT BE TO ". PT THEN TEARFUL AND ASKED IF SHE COULD CALL HER MOTHER.
--- NOTE | 2017-03-29 22:42 | NUR ---
PT REFUSED [facility] PROPANOLOL AND LITHIUM "AT THIS TIME". PT REQUESTED PAPER AND PEN TO "WRITE THINGS DOWN". SITTER AT DOOR. PT CALM AND COOPERATIVE.
--- NOTE | 2017-03-30 00:43 | NUR ---
ASSUMED CARE OF PT, PT RESTING ON BED WATCHING TV, RETURNED PEN AFTER USE. ICE PITCHER REFILLED.
--- NOTE | 2017-03-30 04:09 | NUR ---
SLEEPING AT PRESENT
--- NOTE | 2017-03-30 06:21 | NUR ---
AWAKE FOR V/S OFFERS NO COMPLAINTS
--- NOTE | 2017-03-30 07:20 | NUR ---
PT RESTING ON STRETCHER WITH EYES OPENED. STATES "I DONT NEED ANYTHING FROM YOU RIGHT NOW, I JUST WANT TO LAY HERE" PT AWARE BREAKFAST TRAY IS AT BEDSIDE. SITTER REMAINS PRESENT. WILL CTM
--- NOTE | 2017-03-30 07:49 | IP CRISIS DIAG ASSESS PSYCH ---
See Addendum Diagnostic Assessment Basic Assessment Insurance Authorization: Insurance #1: Insurance name: JOHN SCOTT Phone number: Policy number: [id number] Group number: [id number] Authorization number: John skyrockit [facility] Reviewer: Olivia Alfonso- 2 (03/30-03/31). Review will be on the and a case briefer will call [facility] to review. Authorization # [id number] Primary Care Physician: Patient's PCP: ELIER PERALTA MD PCP's Patient's Quote: "My brain is bleeding." Present Illness: XANDER attempted to meet with the patient this AM, to inform her of the plan for admission to [facility] and to complete reassessment, however the patient was not willing to participate. The patient repeated multiple times that she "does not want to talk now," and refused to answer any questions. When XANDER explained that she would be admitted to [facility], the patient appeared confused and to be experiecning thought blocking. The patient then began to stare at the wall and her tray and did not engage further. The following was taken from collateral obateined, by this rfp writer on 03/28/2017 at 8471: "XANDER met with the patients mother, Courtney Kennedy ([phone]), for collateral information. Courtney notes that the patient has been struggling with her mental health issues since she was 17 years old and has had 5 inpatient hospitalizations. Martha notes that the patient has been diagnosed with Bipolar Disorder, with psychosis. Courtney reports that the patient was last hospitalized on [facility] in February 2017 and was discharged to follow up with IOP at [facility]. Per Courtney she has been attending IOP and was doing well, until the patient was taken off her Risperdal. Courtney noticed that shortly after stopping the Risperdal that the patient began decompensating, with worsening symptoms of depression and psychosis. Courtney notes that over the last week the patient has been very anxious, talking about GOD, talking about suicide and has been paranoid. Courtney reports that the patient has never made any suicidal statements in the past and today the patient grabbed a knife and stated that she (Pt.) wanted the police to think that she (pt.) was going to kill her father (Priscilla ) and therefore they would kill her (pt). Courtney believes that the patients biggest issue is acceptance of her diagnosis and treatment and medication non-compliance. Courtney would like the [facility] staff to be contacted in the AM, as well as herself for coordination of care." Patient's Address: [address] [place] [address] Other Phone Number: Who Do You Live With? Family Feel Safe Where You Live? No (Unable to assess) Feel Safe in Your Relationship No (Unable to assess) If No, Please Elaborate: Unable to assess Marital Status: single Do You Have Children? No Primary Language? Kuwaiti Language(s) Spoken At Home: Kuwaiti Family/Informants Interviewed: Collateral obtained from mother Courtney Kennedy- [phone] Allergies - Coded Allergies: No Known Allergies (02/23/17) Current Medications - Scheduled Medications Schubert Carbonate (Schubert Carbonate ER) 450 MG TABLET.ER 450 MG PO BID mood stabilization #28 TAB Prescribed by FLAVIA HONG APRN on 03/06/17 Multivitamin (Multi-Day Vitamins) 1 EACH TABLET 1 TAB PO DAILY SUPPLEMENT ( Reported) Entered as Reported by NAVJOT JEREZ on 03/28/171902 Quetiapine Fumarate (Seroquel XR) 50 MG (3)-200 MG (1)-300 MG (11) [id number] 1 TAB PO AD MENTAL HEALTH #14 (Reported) Entered as Reported by NAVJOT JEREZ on 03/28/171900 Risperidone (Risperdal) 3 MG TABLET 1 TAB PO AT BEDTIME clear thoughts #14 TAB Prescribed by FLAVIA HONG APRN on 03/06/17 Last Taken: Unknown Dose at an unknown date and time Scheduled PRN Medications Propranolol HCl 20 MG TABLET 20 MG PO Q8P PRN ANXIETY/TREMOR #42 TAB Prescribed by FLAVIA HONG APRN on 03/06/17 Miscellaneous Medications Sertraline HCl (Unknown Strength) TABLET (Unknown Dose) UNKNOWN #14 (Reported ) Entered as Reported by NAVJOT JEREZ on 03/28/171902 Consequences of Psych Med Use: Per her mother, Courtney, the patient has been stating that she is having negative side effects from her medications. Comment: N/A Toxicology Screen Completed? Yes Results: negative Symptoms of Use: N/A Past History Past Surgical History Surgical History unobtainable Abuse/Trauma History Trauma History/Current Trauma: Denies (Unable to assess) Abuse/Trauma Treatment: N/A Legal History Current Legal Status: Court pending Have you ever been arrested? Yes Number of Arrests: [address] Dates: April 2017 Scrap Collector N/A Psychosocial History Strengths/Capabilities: The patient is a college graduate, has stable living and supportive parents. Physical Limitations (Interventions): None reported. Psychiatric Treatment History Psych Treatment Psychiatric Treatment Yes Inpatient Treatment Yes Outpatient Treatment Yes Location of Treatment [facility] in [place] Reason for Treatment bipolar with psychotic features Dates of Treatment Current with IOP at [facility] Response to Treatment Per her mother, Courtney, the patient does well until she stops taking her medications. Diagnosis by History: Bipolar Disorder with psychotic features Risk Factors: age (under 24/over 65), access to lethal means, high anxiety/ distress, history of Violence, SA/MH hospitalized, poor impulse control Substance Use/Abuse History Drug Use/Abuse minimum 12mo Hx Substances Used/Abused No First Use N/A Last Used N/A How much used/taken N/A How often N/A For how long N/A Route of use N/A Substance Abuse Treatment Substance Abuse Treatment Past Substance Abuse TX No Inpatient Treatment No Outpatient Treatment No Location of Treatment N/A Reason for Treatment N/A Dates of Treatment N/A Response to Treatment N/A Comments: N/A Sexual History Sexual Concerns: None noted Education History Highest Level of Education: bachelor's degree Preferred Learning Style: Unclear Current Mental Status Mental Status Orientation: Confused Affect: Blunted, Constricted, Flat Speech: Delayed, Evasive, Incoherent, Mumbled, Soft Neuro-vegetative: Concentration Poor Appearance Appearance- Dress/Hygiene: The patient was sitting in bed, wearing scrubs, unkempt and disheveled. Behaviors Thought Process: Thought Blocking Thought Content: Auditory Hallucinations (* Per mother), Delusions, Paranoid, Spiritism Memory: Impaired (Unable to assess) Insight: Poor SI/HI Risk Assessment - Minimum 6mo History- Past Suicidal Ideation/Attempts No Current Suicidal Ideation/Att Yes Past Homicidal Ideation/Att: No Current Homicidal Ideation/Attempts Yes Degree of Intent: Per her mother, Courtney, the patient had a knife and stated she wanted the police to think she was going to kill her father and that would result in her being killed by the police. Danger To: Others, Self Gravely Disabled: Inability, Lack of Insight, Poor Impulse Control, Poor Judgment Risk Factors: age (under 24/over 65), access to lethal means, high anxiety/ distress, history of Violence, SA/MH hospitalized, poor impulse control Lethality Ratin Needs/Init TX Plan/Goals: Admit to the inpatient unit to maintain safety and stabilize symptoms. Attend individual, group and family sessions. Work with provider for a medication evaluation. Work with treatment team to transition to care in the community. AUDIT-C Questionnaire: AUDIT-C Questionnaire: Response Value ETOH use in the past year Never 0 # drinks typical/day Doesn't Drink 0 6 or > drinks per occasion Never 0 Total 0 DSM5/PS Stressors/Medical Prob Diagnosis' (DSM 5, Stressors, Medical): F31.5 Bipolar current episode depressed with psychotic features F43.10 PTSD Current GAF: 20 Comments: N/A
--- NOTE | 2017-03-30 08:16 | NUR ---
PT CONTINUOUSLY COMING OUT OF ROOM REQUESTING TO CALL PARENTS AND TO SPEAK TO CRISIS. CRISIS AWARE AND WILL COME TO SPEAK TO PT. HELPED PT TO USE PHONE WITHOUT SUCCESS. PT TEARFUL AT TIMES, STATING "MY PARENTS HAVE EVERYTHING THATS IMPORTANT TO ME AND IM NOT GOING TO GET IT BACK" "I JUST WANT TO , PLEASE KILL ME" EMOTIONAL SUPPORT PROVIDED. ESCORTED PT BACK INTO ROOM ALONG WITH SITTER. SITTER REMAINS PRESENT AT THIS TIME.
--- NOTE | 2017-03-30 09:22 | NUR ---
[facility] CALLED FOR 10AM MEDS
--- NOTE | 2017-03-30 10:19 | NUR ---
ASSUMED CARE OF PT WHO IS AWAKE AND LAYING ON BED IN RM 15. PT HAS NO COMPLAINTS AT THIS TIME. WAITING FOR BED IN [facility]. SITTER REMAINS IN PLACE
--- NOTE | 2017-03-30 11:30 | NUR ---
PARENTS IN WITH PT AND HER BEHAVIOR IS BEGINNING TO ESCALATE. CRISIS AT BEDSIDE
--- NOTE | 2017-03-30 11:54 | NUR ---
PT GIVEN 1 MG ATIVAN PO
--- NOTE | 2017-03-30 12:42 | ED PSYCHIATRIST/APRN CONSULT ---
Psychiatrist/AFTER SCHOOL DRIVER ED Consult Assessment and Plan: PT CONTINUES TO BE VERY disorganized. She makes no sense. Affect is labile, she is crying, she talks a bout a baby or behavimng like a baby. According to family she was doing ok until she was taken off risperdal. She is in need of psych admission for stabilization. We will have a bed open in [place] [address] later today.// Patient will be admitted on a pec, gravely disabled.
--- NOTE | 2017-03-30 12:42 | NUR ---
RISPERADOL ORDERED FROM PHARMACY
--- NOTE | 2017-03-30 13:22 | NUR ---
PT MEDICATED WITH RISPERIDONE PER EMAR. AWAITING ADMISSION. FAMILY AT BEDSIDE. SITTER AT DOORWAY.
--- NOTE | 2017-03-30 13:41 | NUR ---
REPORT TO ED IN [facility]. PT STABLE FOR TRANSFER
[2017-03-30 14:35] VITALS: BP 118/63
--- NOTE | 2017-03-30 16:00 | NUR ---
Admitted from ED on PEC for Bipolar d/o w/psychosis. Was discharged from [facility] on March 06. While at IOP the decision was made to stop her Risperidone d/t possible adverse reaction. Patient condition deteriorated per parents until she threatened self harm and wanted someone to shoot her. She confirmed pretty much the same story to me. When asked about paronoia she said she was suspicious about it saying on her drivers license "not for federal identification". I offered to check my license to ease her fears. she appeared satisfied with the answer. Reports hx of minor one time cutting at 11. No medical hx reported. denied current etoh use and no use of cannabis in 1.5months. Denied current thoughts of self harm when asked.
[2017-03-30 20:38] VITALS: BP 104/70
--- NOTE | 2017-03-30 21:22 | NUR ---
PT HAS BEEN IN HER ROOM SINCE ADMITTED TO THE UNIT. SHE HAS BEEN COMPLIANT WITH THE RULES AND HAS NOT HAD ANY MAJOR ISSUES OR SIGNS OF DISTRESS. SHE DID HOWEVER GIVE A WRITTEN NOTE TO THE STAFF INQUIRING ABOUT GOOGLING "HOW TO LIBRADO A PERSON".
--- NOTE | 2017-03-30 22:34 | NUR ---
03/30 2234 PT SPOKE WITH W MITZY AFTER WRAP UP GROUP. PT EXPRESSED PARANOID THOUGHTS, DISORGANIZED THOUGHT PROCESS, AND VEILED SPEAKING ABOUT "HURTING HERSELF BEFORE SOMEONE ELSE DOES". THIS INDUSTRIAL SECURITY ANALYST SPOKE WITH HER AND ALSO OBSERVED THAT THE PATIENT WAS DISTRESSED AND NOT THINKING CLEARLY. THIS RN MENTIONED THAT HE WOULD BE PUTTING HER ON 1:1 FOR HER OWN SAFETY. THE PATIENT HESITATINGLY AGREED. SHE WAS PLACED ON 1:1 FOR HER OWN SAFETY AT [address] LOZOYA WAS NOTIFIED.
--- NOTE | 2017-03-31 05:53 | NUR ---
PT IS ON A !;! OF 03/29. PT ON A PEC FOR SI AND PSYCHOSIS. PT TAKEN OFF OF RISPERDAL AT [facility] AFTER FACIAL SWELLING AND BEGAN TO DECOMPENSATE. PT HAS BEEN MAKING SUICIDAL STATEMENTS INCLUDING WISHING SHE COULD [id number]. PT IN NON-ACCEPTING OF HER ILLNESS AND SHE HAS A HISTORY OF MED NON-COMPLIANCE. AT 2200 ON SATURDAY NIGHT, PT BECAME TEARFUL, ANXIOUS, AND MADE PARANOID STATEMENTS. SHE WAS PLACED ON 1:1. PT REFUSED MEDS, THOUGH. PT REMAINED TEARFUL AND FEARFUL UNTIL SHE FELL ASLEEP AT 0130.
--- NOTE | 2017-03-31 09:45 | NUR ---
DR. PERALTA NOTIFIED FOR H&P @ ABOUT 0900.
[2017-03-31 10:02] VITALS: BP 125/76
--- NOTE | 2017-03-31 10:43 | NUR ---
PT SLEPT UNTIL ABOUT 1000AM AND MET WITH DR. MENDOZA AND TAKEN OFF 1:1 AND TEAM IS IN AGREEMENT, PT IS CALM, REDIRECTABLE YET DISORGANIZED AND LABILE, NO COMPLAINTS REPORTED. PT INFORMED TO COME TO STAFF WITH ANY CONCERNS/ASSISTANCE AND PT VERBALIZED UNDERSTANDING.
--- NOTE | 2017-03-31 11:04 | [facility] MD/APRN INITIAL ASSE PSYCH ---
Psychiatric Admission Sustainment Logistics Analyst's Note Reviewed: Yes Patient Seen and Examined: Yes Identifying Information: Alexa Kennedy. 22yo fem w hx of bipolar disorder. Chief Complaint: Disorganized thoughts, suicidal, labile affect. Reaction to Hospitalization: Involuntary adm History of Present Illness Onset of Illness: Patient has history of a psychotic break 4 years ago while in college. Patient had a recent admission to Inpatient Psychiatry last month. She came to the ed for decompensation, labile affect, disorganized behavior. Per Mother she has been attending [facility] and was doing well, until the patient was taken off her Risperdal. Shortly after stopping the Risperdal that the patient began decompensating, with worsening symptoms of depression and psychosis. Patient has been very anxious, talking about GOD, talking about suicide and has been paranoid. She received Risperdal 1 mg yesterday before coming to the unit. This mor nning she reports feleoing a bit better and her affect is l;able but less than yestreday. She denies current si Circumstances Leading to Admission: Psychosis, Disorganized thoughts. Poor compliance w tx? Problem(s) Justifying Need for Admission: Psychotic behavior, disorganization, labile affect. 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 -Hospitalized a second time in 2011 at [facility]. -S/p D/C from [facility] hospitalization, she was seen by [place] psychiatrist Dr. Shaggy Larsen. - Third hospitalization occured at [facility] in [place] around 2012. - Prior outpatient tx with psychiatrist in [place] while attending college. -Last hospitalized in [facility] lasth month History of Suicide Attempts or Gestures denied Substance Abuse History: Hx of MJ abuse Allergies: Coded Allergies: No Known Allergies (02/23/17) Home Med List: Prescribed risperdal, Lithiium. Recent seroquel. Pt has hx of refusing to take meds. - Include any medical condition(s) that may - impact the patient's recovery/remission Past Medical History: back pain Past History Medical History Any Pertinent Medical History? unobtainable Neurological: NONE, migraine EENT: NONE Cardiovascular: NONE Respiratory: NONE Gastrointestinal: NONE Hepatic: NONE Renal: NONE Musculoskeletal: NONE Psychiatric: bipolar disease Endocrine: NONE Blood Disorders: NONE Cancer(s): NONE PASTRY BAKER/Reproductive: NONE History of MRSA: No History of VRE: No History of CDIFF: No Isolation History: Standard Surgical History Surgical History: unobtainable Psychiatric Family/Social Hx Family History Psychiatric Illness: unable to assess Substance Use: unknown to pt Suicides: unknown to pt Social History Living Situation: lives w parents Significant Relationships (family/friends): parents are supportive Education: Bachelor's degree in performance art Vocation/Occupation: unknown Legal: denies Healthly Behaviors Screening Tobacco Screening Tobacco Use from ED Docu: Current Not Daily - If tobacco counseling indicated - the following topics are required. - #1 Recognizing dangerous situations. - #2 Coping Skills. - #3 Basic information about quitting. Status of Tobacco Cessation Counseling: #1, #2 AND #3 Completed Cessation Med Status Nicotine Gum Ordered Alcohol Screening - ETOH screen POS if BAL >=80 or Audit-C>= M4/F3 Audit-C Score from Diag Assess: 0 Blood Alcohol Level: Laboratory Tests 03/28 03/28 1834 1848 Toxicology Serum Alcohol (<10 MG/DL) Cancelled < 10.0 Alcohol Use Screening Results: Neg per Audit C &/or BAL - If ETOH counseling indicated - the following topics are required. - #1 Express concern about the patient's - drinking at unhealthy levels, include informing - of national norms for moderate drinking: - men <= 14 drinks/week, max 4 drinks/occasion - women <= 7 drinks/week, max 3 drinks/occasion - #2 Providing feedback, including linking alcohol to - negative physical effects (liver injury, hypertension) - negative emotional effects (relationship problems and - depression) - negative occupational consequences (reduced work - performance) - #3 Advising the patient to abstain from alcohol or - to drink below national norms for moderate drinking - (as listed above). Status of ETOH Use Counseling: N/A B/C NO ETOH Use Metabolic Screening - Screen if on a Neuroleptic Medication - Metabolic screening should include: - Blood Pressure, BMI, Glucose or Hgb A1c, & a - Lipid profile from within the past 365 days. Metabolic Screening () Not Applicable, patient not on a neuroleptic. OR () Patient on a neuroleptic(s) . Enter below results for Glucose or Hemoglobin A1C, and lipid panel if obtained during the last 365 days. BMI: 30.000 Blood Pressure: 125/76 Laboratory Results (If applicable): Exam and Plan Mental Status Examination Ambulation Status: independent Appearance: wearing scrubs, apperas stated age Attitude towards examiner: suspicious Psychomotor activity: restless, Behavior: guarded, labile, crying, Quality of speech: soft Affect: labile, crying, mildly agitated at times. Mood: depressed, anxious Suicidal Ideation: denies today, reported si upon admission Homicidal Ideation: denies Hallucinations: "that is a stupid question" Paranoid/Delusional Material: Paranoid regarding having brain sx in [facility]. Less paranoid today Difficulties with thought organization: Significant thought disturbance. Disorganized thoughts, derailed adn with flight of ideas. Insight: poor Judgment: poor Orientation: x3 Cognition: intact Memory Function: uable to assess Estimate of intellectual functioning: vanessa;l Assets/Strengths Patient Identified Assets/Strengths: supportive family Impression/Plan Impression and Plan: 22 yo woman with history of Bipolar disorder, multiple inpatient psychiatric hospitalizations starting 4 years ago. Recently dc from [facility] doing ok on risperdal. She refused to take risperdal adn it was switched to seropquel. Fsamily reported decompensation after this. She came with very disorganized thoughts,, paranoid, labile affect. Some improvement today. - Include all active medical diagnosis that require tx DSM 5 Diagnosis(es): Bipolar disorder Mixed episode w psych features Schizoaffective disorder Hx of MJ abuse - Initial Tx Plan for Active Psych & Medical Conditions Treatment Plan: We will re start risperdal/ COntinue wioth rest of her meds. Consider Lonng acting Injectable antipsychotic. - Factors that would help patient function - in a less restrictive setting. Factors: Medication adherence Treatment adherence Mood stabilization
[2017-03-31 12:18] VITALS: BP 124/71
--- NOTE | 2017-03-31 12:46 | NUR ---
PT IS OFF 1:1 AND ASSESSED TO BE MANAGABLE ENOUGH FOR STAFF AND NOT REQUIRING ADDITIONAL REDIRECTION FROM A SITTER. PT IS GUARDED, IRRITABLE, LABILE, EXUDING PARANOIA AND BECOMES EASILY DEFENSIVE WHEN STAFF ATTEMPTS TO CLARIFY PT'S OWN INACCURATE ASSUMPTIONS. REPORTED TO THIS GULLET SLITTER THAT THE PT WAS SPEAKING TO HER MOTHER ON THE PHONE EARLIER TODAY WHICH LEAD HER TO BECOME UPSET WITH THE CONVERSATION, ALSO NOTED THAT THE MOTHER WAS ALSO PRESENT ON UNIT DURING PT'S INITIAL INTAKE/ADMISSION ALTHOUGH PT IS "OPTED OUT". PT'S MOTHER HAS CALLED TODAY AND NO CONFIRMATION OR INFORMATION WAS GIVEN EVEN THOUGH PT BELIEVES AND EXPRESSED THAT "ED TOLD HER WHAT MEDS IM NOT TAKING" WHICH IS INCORRECT & AN EXPLAINATION WAS ATTEMPTED AND PT STATED "I DON'T KNOW WHAT YOU'RE TRYING TO CONVINCE ME OF BUT IT'S NOT WORKING". PT THEN WENT ON TO STATE SHE DOESN'T NEED A PSYCHIATRIST ONLY A COMMODITIES BROKER AND THEY NEED TO ASSIST HER WITH DISCHARGE DISPO, ALSO DOES NOT WANT TO LIVE WITH HER PARENTS BECAUSE THEY "DON'T LIKE ME" AND WANTS TO BUY A TENT AND LIVE IN THAT. PT IS HESITANT AND DISTRUSTING TOWARDS SOME MEDICATIONS AND WANTED PRINT OUTS ON THEM STATING SHE "DOESN'T BELIEVE [ME]". COMFORT AND ASSURANCE WAS ATTEMPTED ON MANY OCCASIONS TO EXPLAIN THAT HER WISHES RE: PRIVACY & BOUNDARIES ARE BEING UPHELD AND RESPECTED - TO NO AVAIL. AT THIS TIME PROJECTS BEING UNREASONABLELY OVERLY SUSPICIOUS OF STAFF AND THEIR MOTIVES HOWEVER, IS CALM.
--- NOTE | 2017-03-31 14:22 | PN- Att Addend ---
Attending Addendum Attending Brief Note 22F PMH bipolar disorder admitted to [facility] with disorganized behavior, nonsensical speech, non-compliant with meds, admitted for acute psychosis. No acute medical issues at this time. Patient will be managed by psychiatry. Re- consult medicine if necessary. Vitals and labs reviewed and normal. Ambulatory for DVT PPx
[2017-03-31 15:58] VITALS: BP 124/78
[2017-03-31 19:57] VITALS: BP 125/79
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
--- NOTE | 2017-04-01 04:42 | NUR ---
SLEPT FAIR TO POOR OVERNIGHT, EASILY AWAKENED BY ANY NOISE,LIKE DOOR OPENING OR CLOSING. SAT IN LOUNGE FOR LONG TIME OVERNIGHT. CONTINUES TO REFUSE MEDS.
[2017-04-01 08:39] VITALS: BP 107/76
[2017-04-01 12:35] VITALS: BP 135/66
--- NOTE | 2017-04-01 13:17 | NUR ---
PT IS COMPLIANT AND COOPERATIVE. MOOD IS STABLE WITH A FLAT AND EUTHYMIC AFFECT. PT DENIES SI AT THIS TIME, NO COMPLAINTS OFFERED. PT IS RESISTIVE TO MEDS AND TREATMENT AND APPEARS GUARDED. PT IS PRESENT ON UNIT AT TIMES- HAS MINIMAL INTERACTION WITH OTHERS. 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 PT MOSTLY KEEPING TO SELF IN ROOM. PT HAS ATTENDED SOME GROUPS. VITALS ARE STABLE, APPETITE IS MODERATE.
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
--- NOTE | 2017-04-01 16:49 | CP SOUTH PROGRESS NOTE PSYCH ---
Psych (Inpt) Progress Note Progress Note Include the following elements, when applicable: Involvement in the active treatment of the patient with behavioral observations of the patient and the patient's response to the treatment. Review of the ongoing treatment process in the context of the treatment plan. Indication of how multi-disciplinary staff members are carrying out the treatment plan. Plans for future interventions and recommendations for revision of the treatment plan. Liaison with other physicians/providers. Progress Note: I discussed this patient's progress to date, current mental status, treatment process in the context of the treatment plan, and discharge planning with staff/ team in the daily morning inpatient team meeting. I also met with the patient myself in individual session. Current Medications Sig/Kirby Start time Last Medication Dose Route Stop Time Status Admin Fluphenazine HCl 5 MG 0800,1400,2200 04/01 2200 UNVr PO Little Silver Carbonate 450 MG BID 03/29 1000 AC 04/01 PO 0715 Lorazepam 1 MG TID PRN 03/29 2000 AC 03/30 PO 1152 Propranolol HCl 20 MG BID 03/29 2200 AC 03/30 PO 0943 Propranolol HCl 20 MG Q8P PRN 03/29 0945 DC 03/29 PO 1024 Risperidone 1 MG BID 03/31 1006 DC PO Vital Signs Date Time Temp Pulse Resp B/P B/P Pulse O2 O2 Flow FiO2 Mean Ox Delivery Rate 04/01 1453 98.4 88 18 135/66 04/01 1235 88 135/66 04/01 0839 98.4 96 107/76 03/31 1957 99.0 98 125/79 A: Chart, progress notes, labs, vital signs and medication list were reviewed. Vital signs within normal limits. No new lab results today. Per MAR, patient had been refusing Little Silver up until this morning. Patient continues to refuse Risperdal. Patient is a 22y/o female with a history of Schizoaffective disorder, Bipolar disorder with psychotic features, previously treated on [facility] 02/25-, and most recently treated at [facility]. Per collateral from the patient's mother ( obtained in ED crisis), the patient had been doing well until being taken off of Risperdal d/t reported SE of facial swelling (not noted by mother). Over this past week, patient was noted to be paranoid, increasingly anxious, mood lability , endorsing SI and talking about God. Per ED collateral INSTRUMENTATION FITTER, the patient had grabbed a knife and stated that she wanted the police to think that she was going to kill her father so that the police would kill her. On encounter today, patient denies the above report involving police and her father. Stated she grabbed a knife because wanted to stab herself. She reported worsening depression since starting Seroquel XR a few days ago (on 03/27/17). Patient presents with paranoid thoughts, reported her parents "got me into a lot of trouble." She stated that "they (parents) have been drugging me with alcohol, cocaine and pot...my mom made me eat pot cakes." Patient's belief did not change after reviewing her most recent Utox which was negative for all substances. Patient also believes that her brother and other relatives are out to get her ( patient would not elaborate further). Patient is resistant towards taking medications as she believes she "needs to detox from everything they (parents) gave me." Mood "overwhelmed." Affect labile, smiling, tearful, angry. Denies SI, HI, AVH. + PI. 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 Thought process disorganized with paranoia. Patient declined signing a MARIELY for her parents. Patient not agreeable to medication trials. Refused Risperdal d/t reported SE of facial swelling. Refused Seroquel d/t reported SE of increased depression. Refused Haldol d/t wt gain. Refused Zyprexa d/t sedation. Patient with hx of Schizoaffective disorder, making slow progress and refusing psychiatric medications. Remains with psychotic symptoms, poor insight and judgement. Continues to require inpatient hospitalization for symptom management , safety and stabilization. P: -start prolixin 5mg TID for paranoia/delusions, if tolerated will consider switch to TREVINO. -continue Little Silver CR 450mg BID for mood stabilization. -continue to offer MARIELY for parents. -encourage milieu involvement. -Message left for Ernestine Kern APRN at [facility] requesting a return call for collateral. -start cogentin 0.5mg TID for muscle stiffness.
--- NOTE | 2017-04-01 17:51 | NUR ---
PT IS ISOLATIVE AND WITHDRAWN, SPENDING LONG PERIODS OUT OF MILIEU, IN PT ROOM. SLIGHTLY WITHDRAWN WHILE IN [facility]IE[facility]. SLIGHTLY UNCOOPERATIVE WITH STAFF, DIFFICULTY WITH RETRIEVING VITALS. MOOD IS STABLE, AFECT APPEARS EUTHYMIC TO FULL RANGE, COMMUNICATION IS ORGANIZED AND APPEARS NORMAL IN ALL RESPECTS, AND APPETITE IS NORMAL. PT DENIES SI AT THIS TIME.
[2017-04-01 19:42] VITALS: BP 143/64
--- NOTE | 2017-04-02 03:37 | NUR ---
SLEPT WELL OVERNIGHT
--- NOTE | 2017-04-02 08:22 | SOCIAL WORKER PROG NOTE PSYCH ---
Social Work Progress Note Progress Note Patient was seen on a one to one basis. Patient was giving widly inappropriate responses to clinical questions. At times it was difficult to determine whether patient was responding intentionally inappropriate anawers. But, as she added on more detail, it appeared that patient was very delusional. Patient was not responding in logical way, so cut interview short, although the goal had been to develop a plan of care and get more relevant history. Will see patient again tomorrow.
--- NOTE | 2017-04-02 08:52 | SOCIAL WORKER TX PLAN PSYCH ---
Treatment Plan - Please Document: - Evidence that there is ongoing collaboration between - the patient and the interdisciplinary team, - including the patient's active participation and - responsibility for engaging in the treatment regimen, - and that the treatment plan is individualized and - relevant to the patient's conditions. - Treatment plan should reflect documentation indicating - that all active therapeutic efforts are included. Strengths/Capabilities: The patient is a college graduate, has stable living and supportive parents. Physical Limitations (Interventions): None reported. Problem/Goals #1 Problem #1: psychosis Goal (Short Term): patient will be shown the unlikeliness that patient responses could be actually true Patient will be asked for extra information regarding how things happened that would lead to unlikely outcome which she reports. Goal (Armhole Baster Hand): Patient will be treated pharmacologically, and, hopefully, thoughts will be less confused Patient will become reoriented through group and indinidual therapy on her status and how she can best plan Interventions: Group and individual therapy Family meeting medication adjuctments Modalities: Group and individual therapies Family meeting DSM5/PS Stressors/Medical Prob Diagnosis' (DSM 5, Stressors, Medical): F31.5 Bipolar current episode depressed with psychotic features F43.10 PTSD Current GAF: 20 Substantiation for Above Diagnosis: Patient is very delusional Treatment Team - Responsibilities of members of the treatment team include: - Medication Management- MD or REPAIRER CYLINDER HEADS - Medication Administration and Monitoring- Nurse - Group Therapy- Occupational Therapist - 1:1 Therapy,Disch Planning,family involvement-Floor Service Worker [place]
--- NOTE | 2017-04-02 13:23 | NUR ---
PT IS ISOALTIVE IN ROOM FOR MOST OF THE SHIFT, READING AND WRITTING IN BED. PT IS ISOLATIVE AND WITHDRAWN FROM STAFF AND PEERS. PT DISPLAYS PARONOID BEHAVIOR, WRITTING EVERYTHING PEOPLE SAY DOWN. PT REFUSED VIATLS SIGNS AT 0800 AND 1200. PT REFUSED LUNCH BUT ATE BREAKFAST LATE, AFTER EVERYONE ELSE. PT IS NOT ATTENDING GROUPS. PT CAN BE IRRITABLE AT TIMES WITH STAFF AND PEERS
--- NOTE | 2017-04-02 13:49 | CP SOUTH PROGRESS NOTE PSYCH ---
Psych (Inpt) Progress Note Progress Note Include the following elements, when applicable: Involvement in the active treatment of the patient with behavioral observations of the patient and the patient's response to the treatment. Review of the ongoing treatment process in the context of the treatment plan. Indication of how multi-disciplinary staff members are carrying out the treatment plan. Plans for future interventions and recommendations for revision of the treatment plan. Liaison with other physicians/providers. Progress Note: I discussed this patient's progress to date, current mental status, treatment process in the context of the treatment plan, and discharge planning with staff/ team in the daily morning inpatient team meeting. I also met with the patient myself in individual session. Current Medications Sig/Kirby Start time Last Medication Dose Route Stop Time Status Admin Benztropine Mesylate 0.5 MG 0800,1400,0 04/01 2200 AC PO Fluphenazine HCl 5 MG 0800,1400,2200 04/01 2200 AC PO [place] Carbonate 450 MG BID 03/29 1000 AC 04/01 PO 0715 Lorazepam 0.5 MG TID PRN 04/01 1737 AC PO 04/05 1959 Lorazepam 1 MG TID PRN 03/29 2000 DC 03/30 PO 1152 Propranolol HCl 20 MG BID 03/29 2200 AC 03/30 PO 0943 Propranolol HCl 20 MG Q8P PRN 03/29 0945 DC 03/29 PO 1024 Risperidone 1 MG BID 03/31 1006 DC PO Vital Signs Date Time Temp Pulse Resp B/P B/P Pulse O2 O2 Flow FiO2 Mean Ox Delivery Rate 04/01 1942 97.7 92 143/64 04/01 1453 98.4 88 18 135/66 A: Chart, progress notes, labs, vital signs and medication list were reviewed. Patient continues to refuse schedule [place] and newly started Prolixin. She refused rpt CBC and vital signs today. Reviewed patient's progress to date with nursing staff. Per nursing, the patient has refused all treatments today (groups, vital signs, medications and AM labwork). Mood is labile, irritable and tearful. No evidence of AH and VH. Patient guarded with staff, mostly in her room today. Thought content is bizarre at times. Thought process disorganized. Met briefly with patient this morning in her room. She asked me what kind of doctor assesses patients for broken bones. I informed the patient that orthopedic doctors specialize in bones. I attempted to redirect conversation back to the patient's tx here on unit. Patient interupted me and stated, "I need more time to think." She requested being seen later today by this typewriter tester. Met with patient again in my office at 1:30PM. CURT Wiley was present. The patient shared that she has no interest in taking medications or participating in treatments on unit. Reported that she is "fine," which is why she is refusing medications, "I don't need them". She then asked Inez and I if our hospital badges were pseudonyms or goverment identification. The patient appeared paranoid with disorganized thoughts. Mood appeared labile, observed episodically irritable and spontaneously tearful. She informed me that she is here to learn from me. Remained fixated on speaking to the medical student, Vlad, who she had met yesterday. 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 She began talking about when she can start planing her training schedule, to learn more about practicing medicine. Patient appeared somewhat grandiose, showed poor insight into being a patient on unit, despite being prompted to attend groups and to take prescribed medications. She denied passive and active suicidal ideation, plans and intent. She denied homicidal ideation. Denied auditory and visual hallucinations. + paranoia and delusional content. She reported sleeping and eating well. Per nursing staff, the patient is attending to adls. Pt with a hx of Schizoaffective disorder on PEC who continues to show significant thought disturbance, now delusional that she is in medical training on the unit. Shows no insight or judgement into her psychiatric condition, continues to decline medications, labs and groups. Patient continues to require inpatient hopsitalization for stabilization, monitoring and safety. P: -cont. offering scheduled medications. -encourage participation in milieu activites, offer emotional support. -cont. orienting pt to reality. -cont. monitoring on unit for safety, mood, SI and psychosis.
--- NOTE | 2017-04-02 15:54 | SOCIAL WORKER PROG NOTE PSYCH ---
Social Work Progress Note Progress Note Attemted on several occasions to speak with patient today, but she declined each time. For a big portion of the day she remained in her room not fully dressed. There were few times she actually came out of her room; however, she kept promising to meet with me but never did. Plan at this time is to try and meet with patient, with BECKI Morris. At that time, possibly we can come up with a treatment strategy. As of this moment, patient is refusing to take her medication, Patient exhibited a defensive posture, and was unable to sustain any interaction.
[2017-04-02 16:05] VITALS: BP 121/62
--- NOTE | 2017-04-02 16:54 | IP INCIDENTAL NOTE PSYCH ---
Incidental Note Notation: Collateral received from Ernestine Kern APRN from [facility]. Per Ernestine Kern APRN, the patient had done well for appoximately 2 weeks post discharge from [facility]. She had been adherent with medications (which her mother was assiting with), was participating in groups and engaging with other patients in [facility]. Shortly after then, she was noted to have more anxiety and c/o (vague) PTSD symptoms. At that time she had self-discontinued Risperdal d/t report of facial swelling that was never observed by LACE FINISHER, however thought process remained stable. At that time, patient was started on Zoloft 25mg for anxiety. Zoloft was quickly discontinued, as patient's anxiety and paranoia seemed to worsen. She was started on Seroquel XR 50mg QPM. Lomira CR 450mg BID was continued. LACE FINISHER stated that she spoke to patient's mother on 03/28/17, who reported the patient had expressed more self- harming thoughts. Mother was informed by Ernestine Kern APRN, that if the patient felt unsafe to bring her to the emergency department.
--- NOTE | 2017-04-02 18:32 | NUR ---
PT IS ISOLATIVE AND WITHDRAWN, SPENDING THE MAJORITY OF THE EVENING IN PT ROOM. PT APPEARS SLIGHTLY DELUSIONAL. WHILE IN [place] PT HAS LIMITED INTERACTION WITH OTHERS. CAN APPEAR SLIGHTLY AGITATED AT TIMES. MOOD IS STABLE, AFECT APPEARS EUTHYMIC TO FULL RANGE, COMMUNICATION IS ORGANIZED AND APPEARS NORMAL IN ALL RESPECTS, AND APPETITE IS NORMAL. PT DENIES SI AT THIS TIME.
[2017-04-03 10:20] VITALS: BP 112/69
--- NOTE | 2017-04-03 11:39 | NUR ---
PT IS WITHDRAWN AND ISOALTIVE IN ROOM FOR MOST OF THE SHIFT, RESTING IN BED. PT IS IS WITHDRAWN FROM STAFF AND PEERS. PT ATTENDED ONE GROUP TODAY. PT REFSUED TO GET UP FOR 0800 VITLAS AND BREAKFAST BUT THEN GOT UP AROUND 1000 FOR VITALS AND TO EAT. PT MOOD IS STABLE WITH A CONSTRICTED AFFECT. PT SHOWS PARANOID BEHAVIOR WITH STAFF AND PEERS. PT REPROTED SI THOUGHTS THIS MORNING. PROVIDER AND NURSE AWARE.
[2017-04-03 12:37] VITALS: BP 124/57
--- NOTE | 2017-04-03 13:13 | CP SOUTH PROGRESS NOTE PSYCH ---
Psych (Inpt) Progress Note Progress Note Include the following elements, when applicable: Involvement in the active treatment of the patient with behavioral observations of the patient and the patient's response to the treatment. Review of the ongoing treatment process in the context of the treatment plan. Indication of how multi-disciplinary staff members are carrying out the treatment plan. Plans for future interventions and recommendations for revision of the treatment plan. Liaison with other physicians/providers. Progress Note: I discussed this patient's progress to date, current mental status, treatment process in the context of the treatment plan, and discharge planning with staff/ team in the daily morning inpatient team meeting. I also met with the patient myself in individual session. Current Medications Sig/Kirby Start time Last Medication Dose Route Stop Time Status Admin Benztropine Mesylate 0.5 MG 0800,1400,0 04/01 2200 AC PO Fluphenazine HCl 5 MG 0800,1400,2200 04/01 2200 AC PO [place] Carbonate 450 MG BID 03/29 1000 AC 04/01 PO 0715 Lorazepam 0.5 MG TID PRN 04/01 1737 AC PO 04/05 1959 Propranolol HCl 20 MG BID 03/29 2200 AC 04/03 PO 0908 Vital Signs Date Time Temp Pulse Resp B/P B/P Pulse O2 O2 Flow FiO2 Mean Ox Delivery Rate 04/03 1237 80 124/57 04/03 1020 82 112/69 04/03 0908 82 112/69 04/02 1605 100 121/62 04/02 1455 97.7 92 18 143/64 A: Chart, progress notes, labs, vital signs and medication list were reviewed. Patient continues to refuse scheduled [place] and newly initiated Prolixin. She was adherent with AM Propranolol and AM/noon vital signs. Met with patient this morning together with Humble Jeffrey LCSW, for approximately 1 hour. She presented A&O to person, place and year. Speech was delayed at times, otherwise normal in rate, tone and volume. Affect labile, tearful to blunted. Described mood as "tired, anxious, a little overwhelmed/ skeptical about being here." Appeared paranoid towards staff, stating "they only boss me around, they interupt me." When asked what they interupt, she stated "I' m trying to make an outlineof templates for patients and business purposes." When asked what these "templates" were intended for, the patient stated "I don't feel comfortable telling you." Later on, she shared about wanting to go to a different unit "like the ER to work, maybe place casts on patients. 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 She continues to resist medications, refusing [place] and Prolixin. When asked if she would be willing to trial an alternative antipsychotic to Prolixin, she stated "no, that's equivalent to suicide." I acknowledge that earlier this morning she informed nursing that she endorsed SI and wanted to "put a gun in my mouth." When asked what led to her earlier suicidal thoughts, she stated "I don't know, I'm so overwhelmed. everyone is telling me what to do. I keep being told to take medications. I don' t want medications." I asked patient if she would be willing to sign-in voluntarily for longer term hospitalization, she declined. Informed patient that given poor progress made on unit, and unwillingness to trial medications, that we will file for involuntary committment hearing. Asked patient if she had questions regarding this process. She declined. She stated that she disagreed with this decision, however, is unwilling to work with tx team. Today she denied HI, AVH. Reported passive SI, with no plan or intent. Gave safety promise while on unit. + paranoia and delusional content. She refused to sign a MARIELY for parents, remains paranoid towards them, "they poisoned me, that's why I'm here. " Thought process remains disorganized. Pt with a hx of Schizoaffective disorder on PEC who continues to show significant thought disturbance, remains delusional that she is in medical training on the unit. + paranoia towards staff and parents. Shows no insight or judgement into her psychiatric condition, continues to decline medications or allow parents to be involved in her care. Continues to require inpatient hospitalization for monitoring, safety and stabilization given grave disability. P: -cont. offering scheduled medications. -cont. monitoring on unit for safety, mood, SI, and psychosis. -file for involuntary committment.
--- NOTE | 2017-04-03 14:27 | NUR ---
WHEN PTS MOTHER CALLED PT ASKED HER PEER TO PRETEND TO BE HER AND ANSWER THE PHONE. PTS PEER DID NOT DO THIS AND REPORRTED IT TO STAFF. WHEN STAFF APPROACHED PT SHE STATED SHE WAS NOT A PT HERE AND THAT HER MOTHER WAS "CALLING HER FROM THE "
--- NOTE | 2017-04-03 14:39 | SOCIAL WORKER PROG NOTE PSYCH ---
Social Work Progress Note Progress Note I have been unable to get in touch with the patient's family, as she is redusing to sign release for us to contact them. Met with patient separately and along with Alexandra Rudd APRN over the past several days, but patient has not gone to groups, and has refused any trial of medication. Alexandra asked patient if she would be interested in signing voluntarily for longer term treatment; however patient refused this idea. Since patient has remained delusional (i.e. 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 Patient is extremely guarded, and afraid to open up"because you will not take me seriously. Called John to request more time, as we plan to file for involuntary commitment in a facility that would provide longer term treatment. Patient is against this, so we will file papers at probate court. Isaura Lopez ([phone]) approved one additional day, with review scheduled for tomorrow.
--- NOTE | 2017-04-03 18:37 | NUR ---
PT PRESENTS WITH PARANOID THOUGHTS, TALKING ABOUT NEEDING TO STUDY AND WRITING THINGS DOWN. PT HAS BEEN ISOALTIVE IN ROOM FOR MOST OF THE SHIFT, SITTING ALONE IN KICHTEN AT TIMES. PT MOOD IS STABLE WITH A CONSTRICTED AFFECT. NO BEHAVIORAL ISSUES. PT REFUSED 1600 VITALS.
[2017-04-03 19:48] VITALS: BP 121/79
--- NOTE | 2017-04-04 07:18 | NUR ---
PT REFUSED ALL MEDS. PT BIZARRE, "DOING RESEARCH", VIGILANT. [facility] AND EVENTUALLY WENT TO BED AND SLEPT. PT IS STILL OPTED OUT.
--- NOTE | 2017-04-04 13:10 | NUR ---
PT IS REFUSING TO GET OUT OF BED FOR VITALS OR MEDICATIONS/ WILL INTERMITTENTLY GET OUT OF BED TO EAT OR GO TO THE BATHROOM. WHEN STAFF ENTERED PT'S ROOM TO WAKE HER UP SHE THREW PILLOW ON HER HEAD AND IGNORED STAFF'S REQUEST TO COME OUT FOR VITALS. PT WAS HEARD SCREAMING WHEN HER ROOMMATE ENTERED THE ROOM BECAUSE SHE WAS "CHANGING". VS ARE STABLE AND DENIES ANY SI/HI TO THIS MHW.
--- NOTE | 2017-04-04 13:50 | NUR ---
PT REFUSED ALL OF HER MEDS THIS SHIFT. REGIONAL ECONOMIST NOTIFIED
--- NOTE | 2017-04-04 14:03 | SOCIAL WORKER PROG NOTE PSYCH ---
Social Work Progress Note Progress Note Probate court papers completed, and sent to [place] court. Patient has not given permission for us to contact or involve family. Patient continues to isolate in her room. I will be meeting with patient along with Alexandra, as it is a better plan than meeting patient in her room. Called Isaura, reviewer at [facility]---[phone] as request for additional time, and to provide her with greater understanding of degree of patient's illness, and that we are filing papers at probate court for a longer term commitment. Isaura authorized through Saturday, with review due on April 08.
--- NOTE | 2017-04-04 16:26 | CP SOUTH PROGRESS NOTE PSYCH ---
Psych (Inpt) Progress Note Progress Note Include the following elements, when applicable: Involvement in the active treatment of the patient with behavioral observations of the patient and the patient's response to the treatment. Review of the ongoing treatment process in the context of the treatment plan. Indication of how multi-disciplinary staff members are carrying out the treatment plan. Plans for future interventions and recommendations for revision of the treatment plan. Liaison with other physicians/providers. Progress Note: I discussed this patient's progress to date, current mental status, treatment process in the context of the treatment plan, and discharge planning with staff/ team in the daily morning inpatient team meeting. I also met with the patient myself in individual session. Current Medications Sig/Kirby Start time Last Medication Dose Route Stop Time Status Admin Benztropine Mesylate 1 MG Q6-PRN PRN 04/04 1115 AC PO Benztropine Mesylate 0.5 MG 0800,1400,2200 04/01 2200 AC PO Fluphenazine HCl 5 MG Q6-PRN PRN 04/04 1115 AC IM Fluphenazine HCl 5 MG 0800,1400,2200 04/01 2200 AC PO [place] Carbonate 450 MG BID 03/29 1000 DC 04/01 PO 0715 Lorazepam 0.5 MG TID PRN 04/01 1737 DC PO 04/05 1959 Propranolol HCl 20 MG BID 03/29 2200 DC 04/03 PO 0908 Vital Signs Date Time Temp Pulse Resp B/P B/P Pulse O2 O2 Flow FiO2 Mean Ox Delivery Rate 04/04 0009 121/79 04/03 1948 98.2 98 121/79 A: Chart, progress notes, labs, vital signs and medication list were reviewed. Patient refused scheduled [place], Prolixin, Propranolol today. Met with patient together with Humble Jeffrey LCSW for approximately 1 hour, and then individually with the patient for another 30 minutes. During encounter with Humble Jeffrey and the patient, we met in the back group room d/t the patient refusing to meet in my office. She would not provide a reason for why she did not want to meet in my office. She appeared very guarded. Described being in an "emotional crisis." Wilmer "indecisive." Had difficulty articulating what she wanted to say. Began talking about budgets and money. Shortly after, began talking about how starting a medical practice would be "out of my (the pt) reach." Then, shared about how nursing staff has interferred with this plan (forming a medical practice). Stated that the nurses are both "caring and controlling." Associated their roles to "maternal instinct." I asked her if interactions with nursing staff has brought up any underlying feelings towards her own mother. She replied "I think so, she's so controlling (mother)." Stated she feels safest away from both her parents. Refused to sign a MARIELY for parents. She quickly changed topic and asked me if I could arrange for her to visit an Xray room in the Emergency Department. She stated "I want to meet people that I can work with and talk to about getting a budget for my practice (medical)." I informed the patient that I did not have access to that area, and that she could not leave the unit as she is receiving treatment on this unit as a patient. She seemed disappointed by this response, remained very guarded. Then, switched topics again to her belongings. Perseverated on belongings, her ID and wallet. Expressed fear that her mother took these belongings from the hospital. Informed patient that patient valuables often are locked in a safe off unit for safety, so they do not get lost. Patient began demanding to know the specific location of her ID and wallet. I asked CURT Delarosa, to join us who explained that previously she had the patient's belongings brought from the safe to the unit for the patient to go through. The patient acknowledged this. CURT Delarosa, informed the patient that since, her belongings have been returned to the safe for safe keeping. Patient continued to perseverate and showed difficulty processing information. The patient and I then met again, individually, for 30 minutes. She showed me a packet of papers titled "[facility] [facility]." There were multiple sections listed within this packet, including: "website outline," "patient profile," "employee application," "employee handbook," a diagram of a doctor's office, and "patient post-care." Patient shared that this was her medical practice plan. 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 The patient became tearful, loudly yelled, "fine I'll take medication...you're trying to kill me though." She remained paranoid toward me and prescribed psychotropic medications. She gradually de-escalated, stated "I'll take propranolol." Informed patient the Propranolol is ordered to prevent tremor from [place] which she has not been taking. Patient began negotiating which medications she will take. She requested [place], Propranolol and prn Ativan be discontinued. Patient stated she would take Prolixin and Cogentin if the above medications were discontinued. Given the degree of her current paranoia/thought disturbance, I agreed to meet her half way as she would benefit from taking AP medication. I discontinued [place], Propranolol and Ativan temporarily (with hope that her insight/judgement dallin improve as her thought process becomes clearer on AP medication). I will continue Prolixin 5mg TID for paranoia/delusional content. I will also continue Cogentin 0.5mg TID to counter potential muscle stiffness/movement d/o from AP medication. Patient insisted that she watch this marketing copywriter discontinue orders for [place], Propranolol and prn Ativan. I allowed her to watch me discontinue these medication orders in the computer in an attempt to develop trust/rapport. Patient continued to be guarded around me, became anxious, w/ + psychomotor agitation, stating "the court is going to kill me, it's all your fault." Patient required verbal redirection to settle, continued to cry, exhibit anxiety; would not contract for safety or engage in a risk assessment. Patient was not willing to take any prn medication for anxiety. Patient did not meet criteria for IM emergency medication. She was placed on a 1:1 ATC for paranoia/unpredictable behavior/safety. I will re-evaluate patient's status tomorrow morning to determine the necessity of continuing observation status. Reviewed again the risk/benefit/se profiles of both Prolixin and Cogentin. Patient verbalized understanding and stated she is agreeable to taking them. 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 + paranoia towards staff and parents. Shows no insight or judgement into her psychiatric condition, continues to decline medications or allow parents to be involved in her care. Continues to require inpatient hospitalization for monitoring, safety and stabilization given grave disability. P: -d/c lithium, propranolol, prn ativan. -continue to offer prolixin 5mg TID po for paranoia/delusions. continue cogentin 0.5mg TID to counter potential for movement d/o. -start 1:1 observation ATC x 24 hours for safety/paranoia/unpredictable behaviors. -involuntary commitment application filed today. awaiting date of hearing.
--- NOTE | 2017-04-04 17:50 | SOCIAL WORKER PROG NOTE PSYCH ---
Social Work Progress Note Progress Note Met with patient along with BECKI galvan to see if patient was in a positive place. Patient still not trusting staff, and concened that she does not have possessions which "are supposedly locked up in a safe" Patient stillwants no contact with family, nor will she allow us to speak with them. Spoke with Hannah Benoit who said that she would try to get a helicopter crew chief to serve the papers in order to expedite the commitment hearing. Per Alexandra, who met with patient longer than I patient became very upset over a medication issue, and is presently on a one to one, and refusing medication.
--- NOTE | 2017-04-04 18:01 | NUR ---
PT IS VISIBLY UPSET, LABILE, CRYING BOTH IN MILIEU AND IN PT ROOM. WHEN ENTERINGT MILIEU, PT HAS LIMITED INTERACTION WITH OTHERS. MOOD IS STABLE, AFFECT APPEARS EUTHYMIC TO FULL RANGE, ANXIOUS, SLIGHTLY DELUSIONAL/PARANOID THINKING. COMMUNICATION IS ORGANIZED AND APPEAR NORMAL IN ALL RESPECTS. APPETITE IS NORMAL. PT DENIES SI AT THIS TIME.
--- NOTE | 2017-04-04 22:50 | NUR ---
Patient torn between taking medication and not taking medication thinking "staff" will be mad at her if she doesn't take it, and if she does take it that we will be mad again because we had to ask her to take medication. Patient is very cofused with minimal direction or insight to treatment plan and care.
--- NOTE | 2017-04-05 06:22 | NUR ---
THIS PATIENT IS ON A 1:1 OUT CONCERN FOR HER SAFETY. PT WOULD ONLY TAKE HS COGENTIN. PT TEARFUL, SITTING ON HALLWAY FLOOR IN THE NIGHT, REQUIRING REDIRECTION. PT VIGILANT. PT EVENTUALLY WENT TO BED AND SLEPT. PT IS STILL OPTED OUT. PT IS ON A PEC.
[2017-04-05 09:21] VITALS: BP 124/59
[2017-04-05 12:46] VITALS: BP 86/46
--- NOTE | 2017-04-05 14:34 | NUR ---
PT REMAINS ON 1:1 STATUS D/T MENTAL STATE. PT HAS BEEN WITHDRAWN AND ISOLATIVE ALL SHIFT. PT PRESENT ON UNIT AT TIMES, HAS MINIMAL INTERACTION WITH OTHERS AND ISOLATES. PT MOOD IS STABLE WITH A FLAT AND IRRITABLE AFFECT. PT EXPRESSED THOUGHTS OF HARMING SELF- DOES NOT HAVE A PLAN AND WILL NOT ACT HERE. NO SIGNS OF ACTIVE PSYCHOSIS NOTED. PT IS ATTENDING SOME GROUPS. VITALS ARE STABLE, APPETITE IS GOOD.
--- NOTE | 2017-04-05 15:18 | CP SOUTH PROGRESS NOTE PSYCH ---
Psych (Inpt) Progress Note Progress Note Include the following elements, when applicable: Involvement in the active treatment of the patient with behavioral observations of the patient and the patient's response to the treatment. Review of the ongoing treatment process in the context of the treatment plan. Indication of how multi-disciplinary staff members are carrying out the treatment plan. Plans for future interventions and recommendations for revision of the treatment plan. Liaison with other physicians/providers. Progress Note: I discussed this patient's progress to date, current mental status, treatment process in the context of the treatment plan, and discharge planning with staff/ team in the daily morning inpatient team meeting. I also met with the patient myself in individual session. Current Medications Sig/Kirby Start time Last Medication Dose Route Stop Time Status Admin Benztropine Mesylate 1 MG Q6-PRN PRN 04/04 1715 AC IM Benztropine Mesylate 1 MG Q6-PRN PRN 04/04 1115 DC PO Benztropine Mesylate 0.5 MG 0800,1400,2200 04/01 2200 AC 04/05 PO 1306 Fluphenazine HCl 5 MG Q6-PRN PRN 04/04 1115 AC IM Fluphenazine HCl 5 MG 0800,1400,2200 /12 2200 AC 04/05 PO 1306 [place] Carbonate 450 MG BID 03/29 1000 DC 04/01 PO 0715 Lorazepam 0.5 MG TID PRN 04/01 1737 DC PO 04/05 1959 Propranolol HCl 20 MG BID 03/29 2200 DC 06 PO 0908 Vital Signs Date Time Temp Pulse Resp B/P B/P Pulse O2 O2 Flow FiO2 Mean Ox Delivery Rate 04/05 1246 82 86/46 04/05 0921 97.4 87 124/59 A: Chart, progress notes, labs, vital signs and medication list were reviewed. Patient adherent with afternoon prolixin and cogentin this morning. Made more than one attempt to speak with patient today. She refused to meet with me individually or together with Humble Viramontes LCSW. She states "I need to figure things out on my own." Mood irritable. Affect blunted. Very guarded, suspicious. Remains on 1:1 observation w/ sitter; refusing to give a safety promise while on unit. When asked if she endorses SI or HI, she states "go ask my sitter." Shows continued resistence w/ this mortgage underwriter. Refuses to answer all other questions. Per staff reports, patient reported SI this morning, has been mostly irritable today, but participated quietly in art therapy group. Showed ambivalent as to whether to sign a MARIELY for her parents. Apparently, she spoke to her father for approx. 30 minutes over the phone. Patient overheard saying to him, "I wish I could make my own decisions," "I don't have to tell them (staff) anything. They (staff) know everything." Has not yet signed a MARIELY for her parents. AIMS (-). No evidence of movement d/o. Pt w/ hx of Schizoaffective disorder, remains on PEC; involuntary commitment pending; continues to shows significant thought disturbance. Shows poor insight and judgement into her psychiatric condition. Medication adherent for first time today, since hospital admission. Continues to require inpatient hospitalization for monitoring, safety and stabilization given grave disability. P: -cont. 1:1 ATC for safety/paranoia/unpredictable bxs, as pt would not contract for safety on unit. -cont. current medications. -update family on current status if MARIELY is obtained. -await involuntary committment date.
--- NOTE | 2017-04-05 15:47 | SOCIAL WORKER PROG NOTE PSYCH ---
Social Work Progress Note Progress Note I asked patient if she would agree to meet with Alexandra and myself this afternoon. She shook her head, and said that she did not. "I'll figure things out for myself" Patient stayed by herself throughout the day. She declined other overtures to talk at other times.
[2017-04-05 19:51] VITALS: BP 105/55
--- NOTE | 2017-04-06 04:14 | NUR ---
SITTER AT BEDSIDE PT. COOPERATIVE VSS NO IDDUES.
[2017-04-06 08:12] VITALS: BP 134/63
--- NOTE | 2017-04-06 11:59 | CP SOUTH PROGRESS NOTE PSYCH ---
Psych (Inpt) Progress Note Progress Note Include the following elements, when applicable: Involvement in the active treatment of the patient with behavioral observations of the patient and the patient's response to the treatment. Review of the ongoing treatment process in the context of the treatment plan. Indication of how multi-disciplinary staff members are carrying out the treatment plan. Plans for future interventions and recommendations for revision of the treatment plan. Liaison with other physicians/providers. Progress Note: Patient seen chart reviewed d/w nursing staff. patient continues to be irritable refusing to get out of bed, she has been denying SI and focused on her prn medications that she demanded typewriter mechanic to change in front of her, initially she refused to speak with typewriter mechanic on 2 separate occasions 1. coming to room, 2 when yudith went to her room she was mute. she abruptly came into writers room demanding aforementioned med changes. She denies si/hi mood was irritable with congruent irritable affect. she denies avt hallucinations or paranoia. 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
[2017-04-06 12:58] VITALS: BP 95/43
--- NOTE | 2017-04-06 14:12 | NUR ---
PT IS MONITORED ON ONE TO ONE STATUS. SHE REFUSED TO SPEAK WITH THE DOCTOR SO HE WAS UNABLE TO EVALUATE HER NEED FOR ONE TO ONE. WHEN ASKED PT DENIED SUICIDAL THOUGHTS. SHE IS IRRITABLE AND YELLS AT STAFF TO LEAVE HER ALONE. PT WAS RESISTIVE TO TAKING HER MEDS BUT SHE DID TAKE THEM.PT IS VISITING WITH HER MOTHER AT THIS TIME
--- NOTE | 2017-04-06 14:36 | NUR ---
PT MET WITH THE DOCTOR AND DENIED SUICIDAL INTENT. ONE TO ONE MONITORING IS DISCONTINUED AT THIS TIME
[2017-04-06 16:25] VITALS: BP 110/59
--- NOTE | 2017-04-06 18:04 | NUR ---
PT IS ISOLATIVE/WITHDRAWN, STAYING MOSTLY OUT OF MILIEU IN PT ROOM. CRYING, LABILE WHILE IN MILIEU. APPEARS VERY ANXIOUS. MOOD IS NOT STABLE, AFFECT APPEARS EUTHYMIC, COMMUNICATION IS ORGANIZED AND APPEARS NORMAL IN ALL RESPECTS, AND APPETITE IS NORMAL. PT DENIES SI AT THIS TIME.
[2017-04-06 20:07] VITALS: BP 95/57
--- NOTE | 2017-04-07 06:02 | NUR ---
PATIENT SLEPT ALL NIGHT.
[2017-04-07 08:41] VITALS: BP 103/98
--- NOTE | 2017-04-07 11:57 | NUR ---
PT IS ISOLATIVE AND WITHDRAWN. SHE WAS OOB FOR VS MEALS AND MEDS THIS MORNING. SHE DID WILLINGLY MEET WITH THE DOCTOR TODAY. WHEN ASKED SHE DENIED ANY THOUGHTS OF SUICIDE OR SELF HARM. PT TOOK HER MEDS THIS MORNING WITHOUT A PROBLEM
[2017-04-07 12:12] VITALS: BP 118/56
--- NOTE | 2017-04-07 12:52 | CP SOUTH PROGRESS NOTE PSYCH ---
Psych (Inpt) Progress Note Progress Note Include the following elements, when applicable: Involvement in the active treatment of the patient with behavioral observations of the patient and the patient's response to the treatment. Review of the ongoing treatment process in the context of the treatment plan. Indication of how multi-disciplinary staff members are carrying out the treatment plan. Plans for future interventions and recommendations for revision of the treatment plan. Liaison with other physicians/providers. Progress Note: Patient seen chart reviewed, d/w nursing staff she has been less irritable since yesterday out in the [facility] talking with peers and staff. Med compliant no se reported. she states sleeping okay. She reports to parts data writer that she spoke to family who said they will let her return if she takes lithium and risperdal which she is willing to do. She denies si/hi more appropriate and engaging with parts data writer. CF, ASA casually dressed and groomed no pmr/pma. Cooperative fair eyie contact. normal speech "ok" mood blunted affect. linear denies si/hi or psychosis. i/j limited BP safe off 1;1, d/w her being on prolixin currently and seems to have good response but agreed to restart lithium, will order labs for tomorrow recent tsh normal. r/be/se alt d/w her and she agrees, also to make bid dosing for both will making prolixin 7.5mg bid as she has been taking approx 15mg daily in tid dosing. she agrees to plan
[2017-04-07 17:24] VITALS: BP 116/64
--- NOTE | 2017-04-07 18:09 | NUR ---
PT IS COOPERATIVE WITH STAFF AND PEERS, AND COMPLIANT WITH UNIT RULES. BOTH IN AND OUT OF MILIEU, LIMITED INTERACTION WITH OTHERS. CAN BE SLIGHTLY LABILE AND TEARFUL AT TIMES. MOOD IS MOSTLY STABLE, AFFECT APPEARS EUTHYMIC, COMMUNICATION IS ORGANIZED AND APPEARS NORMAL IN ALL RESPECTS, AND APPETITE IS NORMAL. PT MADE AN SI COMMENT AT 1600 VITALS. WAS SUBSEQUENTLY CONTRACTED FOR SAFETY.
[2017-04-07 19:51] VITALS: BP 145/64
[2017-04-08 12:25] VITALS: BP 106/56
--- NOTE | 2017-04-08 13:07 | NUR ---
PT IS COMPLIANT AND COOPERATIVE WITH UNIT RULES. PT IS ISAOTLIVE IN ROOM AT TIMES, INTERACTING WELL WITH STAFF AND PEERS WHEN OUT IN THE COMMUNITY. PT IS ATTENDING SOME GROUPS. PT MOOD IS STABLE WITH A CONSTRICTED AFFECT. PT DENIES SI THOUGHTS.
--- NOTE | 2017-04-08 14:31 | NUR ---
PT BECAME TEARFUL SHE BELIEVES SHE WILL BE SENT AWAY FOR A LONG TIME. SHE STATED WE PLAN TO SEND HER OUT "IN A BODY BAG" SHE REFUSED TO SPEAK WITH HER MOTHER ON THE PHONE
--- NOTE | 2017-04-08 17:30 | SOCIAL WORKER PROG NOTE PSYCH ---
Social Work Progress Note Progress Note This Sw left vm for Isaura phillips [place] ([phone]) requesting additional inpatient authorization. Clinical was provided as well as a call back number for this headline writer.
--- NOTE | 2017-04-08 17:57 | CP SOUTH PROGRESS NOTE PSYCH ---
Psych (Inpt) Progress Note Progress Note Include the following elements, when applicable: Involvement in the active treatment of the patient with behavioral observations of the patient and the patient's response to the treatment. Review of the ongoing treatment process in the context of the treatment plan. Indication of how multi-disciplinary staff members are carrying out the treatment plan. Plans for future interventions and recommendations for revision of the treatment plan. Liaison with other physicians/providers. Progress Note: I discussed this patient's progress to date, current mental status, treatment process in the context of the treatment plan, and discharge planning with staff/ team in the daily morning inpatient team meeting. I also met with the patient myself in individual session. Current Medications Sig/Kirby Start time Last Medication Dose Route Stop Time Status Admin Benztropine Mesylate 0.5 MG .STK-MED ONE 04/07 1928 DC PO 04/07 192 Benztropine Mesylate 0.5 MG Q6-PRN PRN 04/05 1915 AC 04/07 PO 192 Benztropine Mesylate 1 MG Q6-PRN PRN 04/04 1715 AC IM Fluphenazine HCl 7.5 MG 0800 04/08 0800 AC 04/08 PO 0905 Fluphenazine HCl 7.5 MG AT BEDTIME 04/07 2200 AC 04/07 PO 2131 Fluphenazine HCl 2.5 MG Q6-PRN PRN 04/05 1915 AC 04/06 PO 1637 Fluphenazine HCl 5 MG Q6-PRN PRN 04/04 1115 AC IM [place] Carbonate 300 MG 8AM 04/08 0800 AC 04/08 PO 0906 [place] Carbonate 300 MG AT BEDTIME 04/07 2200 AC 04/07 PO 2131 Vital Signs Date Time Temp Pulse Resp B/P B/P Pulse O2 O2 Flow FiO2 Mean Ox Delivery Rate 04/08 1225 98 106/56 04/07 195 96.7 90 145/64 A: Chart, progress notes, labs, vital signs and medication list were reviewed. Vital signs within normal limits. Patient adherent to prescribed Prolixin and cogentin over the weekend. Was further agreeable to restarted [place], which was restarted, which she had shown adherence to. MARIELY obtained for parents (in paper chart). Per nursing reports, patient was irritable and demanding over the weekend with staff and Dr. Calvillo. Met with patient together with Nupur Muniz LCSW, and Vlad Castro, medical student. On encounter she appeared much less guarded; oriented x 3. Mood "pretty good, more even." Affect blunted with occasional range, non-labile, appropriate. Eye contact appropriate. Speech normal in rate, tone, volume. Offered no complaints. Reported feeling some tiredness and "hazy" from daytime dosing of Prolixin. Requested to receive entire Prolixin dose at bedtime, which I told patient I would order. 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 Stated "my thoughts feel more organized now, that was a far out thought." Stated she is focused on obtaining a job, and finances remain a concern for her. Stated "maybe that's why I started thinking like that (re: delusion)." Stated that was her attempt to "figure out a way to be successful." Stated she knows now that she is not on unit to work as a doctor, but to receive tx for psychiatric symptoms. She seemed more accepting of this today. She was open to having her parents in for a family meeting. Stated she would like to return home to live with family. Offered patient to sign into hospital voluntarily which she agreed to. Probate court was notifed of this today. Patient denied active and passive suicidal ideation, plans and intent. Denied homicidal ideation, auditory and visual hallucinations. No evidence of overt paranoia or galileo delusions. Thought process more linear, goal-directed. Reported overall tolerating medications well; denied acute untoward med effects. Agreeable to continue taking. Pt w/ hx of Schizoaffective disorder, now on voluntary status; shows improved thought process since starting AP medication. Shows slowly improving insight and judgement into her psychiatric condition. Continues to require inpatient hospitalization for monitoring, safety and stabilization. P: -Cont. monitoring on unit for safety, mood and psychosis. -Change Prolixin from 7.5mg BID to 15mg QHS for clear thoughts, will start tomorrow night. -Cont. [place] 300mg BID. Level ordered 04/11/17 AM. -Arrange family meeting for tomorrow w/ parents. -Dispo planning per primary team.
--- NOTE | 2017-04-08 18:22 | IP INCIDENTAL NOTE PSYCH ---
Incidental Note Notation: MARIELY obtained to speak to patient's mother. Spoke to her this morning. Updated her on status of patient; of recent improvement in thought process since start of Prolixin. Patient's mother reported that she saw her over the weekend, felt patient was moving in the right direction and hopeful that she will continue on medication. Patient's mother had many questions over the involuntary committment hearing, which had been filed for the end of last week given the severity of the patient's psychotic symptoms and her refusal to adhere to tx recommendations. Informed patient's mother that the patient agreed to voluntary admission here on unit, which will likely cancel involuntary commitment hearing however this remains pending upon hoister determination. Patient's mother seemed very eager for patient's discharge so she could attend a family event this week. Mother agreeable to come in for a family meeting with the patient's father. Informed patient's mother that [facility] would be in touch to schedule a meeting. No definitive discharge date was provided to the patient's mother; informed her of tx recommendation to evaluate patient's progress day-to-day, given the severity of patient's recent psychotic symptoms.
--- NOTE | 2017-04-08 19:26 | SOCIAL WORKER PROG NOTE PSYCH ---
Social Work Progress Note Progress Note 04/08/17, 2:50pm: Frederick Chao APRN, medical student Jose Castro and this Sw met with pt. Pt agreed to schedule a family meeting and this race and sports book writer will contact her mother by phone to do so. Pt also agreed to sign a voluntary admission form. Dat Le LCSW contacted probate to cancel the involuntary committment hearing. Pt discussed coping skills that she has utilized, particularly yoga: "Yoga helped calm me down" and she stated that she has utilized this on [facility]. Pt reported that her mood has improved and she is feeling more organized. 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 Pt discussed medications with Frederick Chao during this session as well. Pt's mother arrived on the unit to visit with the pt. At their request, Tw spoke with pt and her mother and a family meeting has been scheduled for 04/09/17 at 3pm. Pt and her mother stated that they understood that she would be discharged tomorrow. After clarifying with Frederick Chao, pt and her mother were informed that discharge is not anticipated for tomorrow. Discharge plans will be discussed/identified. Pt became upset, however, appeared to agree to discuss this further tomorrow during the family meeting. Pt's mother stated that her father will also attend the meeting. Nursing staff was informed of this interaction/discussion.
[2017-04-08 19:52] VITALS: BP 137/60
--- NOTE | 2017-04-08 22:09 | NUR ---
PT IS VISIBLE ON UNIT, VISITING WITH MOTHER THROUGHOUT EVENING. ONCE VISITOR LEFT, PT ISOLATED IN BED FOR THE REST OF THE EVENING. PT IS COOPERATIVE AND COMPLIANT. NO COMPLAINTS OR SI REPORTED. PT HAS A STABLE MOOD AND FLAT AFFECT.
--- NOTE | 2017-04-08 23:47 | NUR ---
Patient signed 3-day paper "hoping" to leave sooner. Patient informed to discuss discharge plans with doctors.
--- NOTE | 2017-04-09 05:51 | NUR ---
PT SIGNED IN A VOLUNTARY PATIENT, THEN SUBMITTED A 3 DAY PAPER YESTERDAY. PT WILL HAVE A FAMILY MTG AT 1500 WITH PARENTS. PT RELUCTANTLY TAKING MEDS. PT SLEPT.
[2017-04-09 07:50] VITALS: BP 125/65
[2017-04-09 11:51] VITALS: BP 114/59
--- NOTE | 2017-04-09 12:11 | CP SOUTH PROGRESS NOTE PSYCH ---
See Addendum Psych (Inpt) Progress Note Progress Note Include the following elements, when applicable: Involvement in the active treatment of the patient with behavioral observations of the patient and the patient's response to the treatment. Review of the ongoing treatment process in the context of the treatment plan. Indication of how multi-disciplinary staff members are carrying out the treatment plan. Plans for future interventions and recommendations for revision of the treatment plan. Liaison with other physicians/providers. Progress Note: Patient known to me from IOP visit on 03/27/17. Medication list reviewed. Case and treatment plan discussed in team meeting. Patient signed in voluntarily then submitted a 3-day paper. Staff reports that mother is concerned and calls often for updates. 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 Took medications reluctantly. Patient seen with medical student at 11:24 a.m. Patient states she is doing pretty well. States she has some back pain, thinking maybe she slept "weird." I will order prn Tylenol. I advised patient to avoid all NSAIDs while on lithium. Affect was initially calm and blunted, later fragile, irritable and tearful about potential for missing family event tomorrow. Mood "fine, it's good." Sad 2/10, "I guess." Anxiety "like a 5"/10. Wants release today. Minimizing recent delusional material. Tolerating medications "just okay, I guess (vague)." Denies feeling hopeless, helpless, worthless or guilty. Denies active SI. Has passive SI "a little bit." Denies HI. Patient requested to terminate interview early. IMPRESSION: Slow progress. Continue present treatment plan. Seems superficially improved. Psychotic symptoms seem to be sealing-over. I believe that the patient is too fragile for release today.
[2017-04-09 12:17] VITALS: BP 114/59
--- NOTE | 2017-04-09 13:49 | NUR ---
PT IS STABLE WITH CONSTRICTED AFFECT. PT IS MORE PLEASANT TODAY THAN PREVIOUS SHIFTS. PT WENT IN TO SPEAK WITH THE DOCTOR AND CAME OUT TEARFUL, ALTHOUGH NOT AGITATED. PT WAS LATER SEEN TALKING ON THE PHONE AND CRYING. PT LATER RESCINDED HER 3 DAY PAPER. PT HAS SINCE BEEN IN BED SLEEPING. VS ARE STABLE AND DENIES ANY SI/HI TO THIS MHW.
--- NOTE | 2017-04-09 18:26 | SOCIAL WORKER PROG NOTE PSYCH ---
Social Work Progress Note Progress Note This Sw returned a call from pt's mother at approximately 12pm regarding today's meeting scheduled for 3pm. She was informed that Frederick Chao APRN was out today and was offered to reschedule the appointment for tomorrow. Pt's mother became frustrated/concerned regarding this change in plan, and was ultimately offered to speak with this communications writer's warehouse traffic supervisor. Pt's mother stated that she would like to speak with a doctor. The message was relayed to Vincent Sagastume and Dr. Gilliland. 2pm Sw received a call from the pt's mother stating that she and her would be coming to the unit today at 3pm for the family meeting as she had not heard from the doctor. This communications writer spoke with Dr. Gilliland and Vincent Sagastume following this call and then responded to the pt's mother informing her that they would be able to meet at 3pm. This Sw also spoke with the pt who stated that she was willing/ interested in continuing with the family meeting. 3pm
--- NOTE | 2017-04-09 19:04 | NUR ---
PT IS CALM, COOPERATIVE WITH STAFF AND PEERS, AND COMPLIANT WITH UNIT RULES. OFTEN OUT OF MILIEU, ISOLATIGN IN PT ROOM. MOOD IS STABLE, AFFECT APPEARS EUTHYMIC TO FULL RANGE, COMMUNICATION IS ORGANIZED AND APPEARS NORMAL IN ALL RESPECTS, AND APPETITE IS NORMAL. PT DENIES SI AT THIS TIME.
[2017-04-09 19:53] VITALS: BP 121/63
--- NOTE | 2017-04-10 06:39 | NUR ---
PATIENT SLEPT ALL NIGHT.
--- NOTE | 2017-04-10 11:18 | CP SOUTH PROGRESS NOTE PSYCH ---
Psych (Inpt) Progress Note Progress Note Include the following elements, when applicable: Involvement in the active treatment of the patient with behavioral observations of the patient and the patient's response to the treatment. Review of the ongoing treatment process in the context of the treatment plan. Indication of how multi-disciplinary staff members are carrying out the treatment plan. Plans for future interventions and recommendations for revision of the treatment plan. Liaison with other physicians/providers. Progress Note: I discussed this patient's progress to date, current mental status, treatment process in the context of the treatment plan, and discharge planning with staff/ team in the daily morning inpatient team meeting. I also met with the patient myself in individual session. Current Medications Sig/Kirby Start time Last Medication Dose Route Stop Time Status Admin Acetaminophen 650 MG Q6P PRN 04/09 1215 AC PO Benztropine Mesylate 1 MG 04/09 2200 AC 04/09 PO 2134 Benztropine Mesylate 0.5 MG Q6-PRN PRN 04/05 191 AC 04/07 PO 1927 Benztropine Mesylate 1 MG Q6-PRN PRN 04/04 1715 AC IM Fluphenazine HCl 15 MG 04/09 2200 AC 04/09 PO 2134 Fluphenazine HCl 2.5 MG Q6-PRN PRN 04/05 1915 AC 04/06 PO 1637 Fluphenazine HCl 5 MG Q6-PRN PRN 04/04 1115 AC IM Taloga Carbonate 300 MG 8AM 04/08 0800 AC 04/10 PO 0947 Taloga Carbonate 300 MG AT BEDTIME 04/07 2200 AC 04/09 PO 2134 Vital Signs Date Time Temp Pulse Resp B/P B/P Pulse O2 O2 Flow FiO2 Mean Ox Delivery Rate 04/09 1953 97.9 93 121/63 04/09 1217 86 114/59 04/09 1151 86 114/59 A: Chart, progress notes, labs, vital signs and medication list were reviewed. Vital signs within normal limits. No new labs results today. The patient revoked her termination of voluntary form yesterday (in paper chart) . Met with the patient this morning together with Nupur Muniz LCSW. Reviewed the events from yesterday, including family meeting that I did not partake in given my absence. Patient informed that involuntary committment hearing was canceled. She describes being bored on unit, otherwise states her mood is "good. " Affect calm, andre in range than in prior encounters. Rates anxiety a 4/10 ( 10 being the worst) d/t being here. Rates depression a 1/10 (10 being the worst) . Requests for AMA discharge today; she is unable to identify how remaining on unit would benefit her further. Feels she is better adjusted to medications today. States her sleep and appetite are good. She denies active and passive suicidal ideation, plans and intent. She states and also believes she will not harm herself or others. Identified protective factors of her mother and father. Denies homicidal ideation, plans and intent. Denies auditory and visual hallucinations, paranoid ideation. No evidence of delusional content. Identifies that staying on prescribed medications and participating in IOP post discharge will help prevent future relapses of psychiatric symptoms. She further identifies that by continuing in treatment, she will have a better chance at remaining stable so she can find a steady job which she so badly desires. She reports tolerating medications well, denies untoward effects. She declines Prolixin TREVINO at this time. She reports feeling safe and ready for discharge. I personally spoke with the patient's father, Mr. Kennedy (#[phone]), this morning via phone. Nupur Muniz LCSW, was present and witnessed phone conversation. I informed Mr. Kennedy that the probate hearing was canceled by the pound keeper. I explained my rationale for initially filing for the hearing ( that at the time the patient's psychotic symptoms were severe and she had been refusing all treatments). He verbalized understanding of rational and was accepting of it. All of his medication questions were answered. I informed him that Risperdal had been discontinued d/t the patient's consistent reports of previously having an allergic reaction to it (i.e., facial swelling) and was unwilling to resume it. I informed him that Prolixin was started because like Risperdal it also comes in a long-acting injectable form (which could minimize the risk for future medication non-adherence), however, I further informed him that the patient currently refused it (TREVINO). He explained both his and his ' s desire for the patient to discharge today. He stated that he met with the patient yesterday and that she appeared to be back at her baseline. He expressed no acute safety concerns regarding her discharging today, with scheduled aftercare at [facility]. I informed Mr. Kennedy, that the patient would most likely benefit from continued inpatient monitoring over the next few days. He, however, strongly advocated for the patient's discharge today. Stated that he and his would assume all responsibility of the patient post-discharge from the hospital. I explained to him the terms of AMA (against medical advice) discharge , which the patient agreed to. Mr. Kennedy also agreed to AMA discharge and stated he would pick her up from the hospital this evening. He assured this entry writer that his would transport the patient to/from [facility] appointments and bring her for a Taloga blood draw tomorrow morning. Prior to discharge, the patient and her father signed AMA discharge hospital form. This was witnessed by this entry writer. I reviewed all discharge information, including her scheduled medications, the doses that are next due, and the times of administration. Both parties verbalized understanding of education. Neither alliance party had further questions. P: -AMA discharge this evening, into the care of her father. -F/u with [facility] intake tomorrow at 2PM. -All discharge prescriptions were e-prescribed to [facility] in [place], [place] today. -Patient and father were advised that in the event of an emergency, to call [phone] to the nearest emergency department. Both parties verbalized understanding of all instructions.
--- NOTE | 2017-04-10 12:01 | NUR ---
PT MET WITH PROVIDER AND SCREEN TENDER AND TEAM UNDERSTANDS THE PT IS TENTATIVELY LEAVING TODAY AROUND 1700 AMA. WHEN ASKED DIRECTLY, DENIES SI/HI/HALLUCINATIONS, MOOD STABLE WITH FULL RANGE AFFECT. PT REPORTS FEELING BETTER AND MORE BALANCED, CALM AND "RELAXED", HAS A + UNDERSTANDING OF MEDICATION REGIMENT AND VERBALIZING THE NEED TO CONTINUE WITH IT, ACKNOWLEDGES BEING IRRATIONAL AND PARANOID AND REPORTS AN IMPROVEMENT IN THESE SYMPTOMS. INFORMATION PACKETS RE: SI, BIPOLAR GIVEN, W-10 AND PT RESOURCE GUIDE REVIEWED WELL, NO QUESTIONS OR CONCERNS. PT REPORTS AN OVERALL IMPROVEMENT IN MOOD/MENTAL STATUS/BEHAVIOR/THOUGHT PROCESS, COOPERATIVE AND STABLE.
[2017-04-10 12:39] VITALS: BP 116/63
--- NOTE | 2017-04-10 14:51 | DISCHARGE SUMMARY REPORT-PSYCH ---
Visit Information Visit Dates/Diagnosis' Admission Date: 03/30/17 Discharge Date: 04/10/17 Reason for Admission: Acute psychosis and suicidal ideation. Psy Discharge Primary Diag: Bipolar disorder, MRE mixed with psychotic features Psy Discharge Secondary Diag: Schizoaffective disorder Hospital Course Significant Lab Findings: Lab Calcium 10.3 mg/dL H 03/28/17 1848 Bagnell 0.8 mmol/L 03/28/17 1848 Course Complications: None. Consultations: The patient was seen for admission history and physical by slat basket maker helper Dr. Dottie Galvez. Please see his note for additional information. Allergies: Coded Allergies: No Known Allergies (02/23/17) Hospital Course/TX Response: The patient was monitored on the unit for safety, mood, suicidal ideation and psychosis. Prior to CPS arrival the patient had self-discontinued prescribed Risperdal due to alleged reports of facial swelling. She was unwilling to resume this medication for this reason. Patient was started on Prolixin 5mg TID for psychosis, as this held the potential for switching to a long-acting injectable to increase future medication adherence. Cogentin 0.5mg TID was additionally started to prevent the risk muscle stiffness associated with antipsychotic medication, as patient would likely refuse medication if she experienced these side effects. Bagnell CR 450mg BID was resumed for mood stabilization. Propranolol 20mg BID was additionally resumed to prevent tremor associated with Bagnell. Over the first 5 days of her inpatient stay, the patient refused all the above prescribed medications. She stated that she felt taking medications were equivalent to suicide. She further claimed that part of the reason leading to this CPS admission was due to her parents having poisoned her with cocaine, cannabis and alcohol despite her BAL and urine toxicology for these substances being negative on admission. The patient resisted all forms of treatment on the unit including medication. 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 At this time a probate hearing was filed for involuntary committment given the severity of her psychosis and her unwillingness to adhere to treatment recommendations and medications. After filing application with probate court, the patient slowly became more willing to take medications, however, still showed reluctance. She negotiated that she would agree to take scheduled Prolixin and Cogentin if scheduled Bagnell and Propranolol were discontinued. I agreed to this proposal, as I felt the patient's insight and judgement surrounding her psychiatric condition might improve upon clearance of her psychosis. Shortly after starting scheduled Prolixin, the patient's paranoia and delusion slowly began to clear. At this time she became agreeable to starting Bagnell at 300mg BID for mood stabilization. During her period on these medications, her mood improved and she was observed to be more stable. Her thought process appeared much improved, appeared more organized and linear. The patient reported tolerating scheduled medications of Prolixin 15mg QHS, Cogentin 1mg QHS and Bagnell 300mg BID well and denied untoward effects. She was agreeable to continue taking medications post-discharge, but was resistent to switching from oral Prolixin to Prolixin long-acting injectable to increase the outcome of medication adherence. During the hospital course, the patient's mood, affect and thought process improved. Her delusion of being an orthopedic physician remitted. Suicidal ideation and paranoia further remitted. A family meeting was held with the patient, her parents, Nupur Muniz LCSW, and Dr. Gilliland. The patient's treatment progress to date, level of safety and discharge planning were reviewed and discussed. The patient's parents strongly advocated for the patient's discharge on the same day of the family meeting so that she could attend a family event the following day. However, at that time she was not deemed psychiatrically cleared for discharge. The following day, Nupur Muniz LCSW and I called and spoke to the patient's father, Mr. Kennedy, on speaker phone. I informed Mr. Kennedy that the probate hearing was canceled by the food production associate, as the patient had signed into the hospital voluntarily after the hearing request paperwork had been submitted to court. I explained my rationale for initially filing for the hearing (that at the time the patient's psychotic symptoms were severe and she had been refusing all treatments). He verbalized understanding of rational and was accepting of it. All of his medication questions were answered. I informed him that Risperdal had been discontinued d/t the patient's consistent reports of previously having an allergic reaction to it (i.e., facial swelling) and was unwilling to resume it. I informed him that Prolixin was started because like Risperdal it also comes in a long-acting injectable form (which could minimize the risk for future medication non-adherence); however, I further informed him that the patient currently refused it (TREVINO). He was also accepting of this information. He explained both his and his 's desire for the patient to discharge today. He stated that he and his met with the patient yesterday and felt that she appeared to be back at her baseline. He expressed no acute safety concerns regarding her discharging today, with scheduled aftercare at [facility]. I informed Mr. Kennedy, that the patient would most likely benefit from continued inpatient monitoring over the next few days to continue on psychiatric medications. He, however, strongly advocated for the patient's discharge today. Stated that he and his would assume all responsibility of the patient post-discharge from the hospital. I explained to him the terms of AMA (against medical advice) discharge, which the patient agreed to. Mr. Kennedy also agreed to AMA discharge and stated he would pick her up from the hospital this evening. He assured this senior technical writer that his would transport the patient to/from all IOP appointments and bring her for a Bagnell blood draw tomorrow morning. On the date of discharge, 04/10/17, I reviewed the events from yesterday with the patient, including family meeting that I did not partake in given my absence. Patient was informed today that the involuntary committment hearing was canceled. She describes being bored on unit, otherwise states her mood is "good. " Affect calm, andre in range than in prior encounters. Rates anxiety a 4/10 ( 10 being the worst) d/t being here. Rates depression a 1/10 (10 being the worst) . Requests for AMA discharge today; she is unable to identify how remaining on unit would benefit her further. Feels she is better adjusted to medications today. States her sleep and appetite are good. She denies active and passive suicidal ideation, plans and intent. She states and also believes she will not harm herself or others. Identified protective factors of her mother and father. Denies homicidal ideation, plans and intent. Denies auditory and visual hallucinations, paranoid ideation. No evidence of delusional content. Identifies that staying on prescribed medications and participating in IOP post discharge will help prevent future relapses of psychiatric symptoms. She further identifies that by continuing in treatment, she will have a better chance at remaining stable so she can find a steady job which she so badly desires. She reports tolerating medications well, denies untoward effects. She declines Prolixin TREVINO at this time. She reports feeling safe and ready for discharge. The patient discharged against medical advice on 04/10/17. This was witnessed by this senior technical writer. I reviewed all discharge information, including her scheduled medications, the doses that are next due, and the times of administration. Both parties verbalized understanding of education. Neither constitution party had further questions. Both the patient and her father signed AMA discharge form. The patient's father verbalized that he will assume all responsibility of the patient along with his post-discharge. They were both instructed on the risks of discharging against medical advice and verbalized understanding. Discharge HBIPS - Tobacco Use Treatment Offered Post DC Medications Offered: Not Applicable Post DC Tobacco Treatment Plan: Not Applicable - EtOH/Drug Use D/O Treatment Offered Post DC Medications Offered: NA-No EtOH/Drug Use D/O Post DC EtOH/SubAbuse TX Plan: NA-No EtOH/Drug Use D/O Metabolic Screening - Screen if on a Neuroleptic Medication - Metabolic screening should include: - Blood Pressure, BMI, Glucose or Hgb A1c, & a - Lipid profile from within the past 365 days. Metabolic Screening () Not Applicable, patient not on a neuroleptic. OR ([X]) Patient on a neuroleptic(s) . Enter below results for Glucose or Hemoglobin A1C, and lipid panel if obtained during the last 365 days. BMI: 30.000 Blood Pressure: 111/57 Laboratory Results (If applicable): Lab Cholesterol 147 MG/DL 02/27/17 0600 Cholesterol/HDL Ratio 3 % 02/27/17 06 Glucose 98 mg/dL 03/28/17 1848 HDL Cholesterol 45 mg/dL 02/27/17 0600 Hemoglobin A1c 5.3 % 02/27/17 0600 LDL Cholesterol, Calc 81 mg/dL 02/27/17 0600 Triglycerides 107 mg/dL 02/27/17 0600 Discharge Instructions General Discharge Information Discharge Medications: Discharge Medications- (Dose, route, freq, indication): START taking these NEW Home Medications: Fluphenazine HCl Dose: ORAL, TAKE AT BEDTIME Qty: 14 Sent to (Fluphenazine HCl) 5 1 Tablet for clear thoughts Refills: 0 Pharm 1 MG TABLET Take 1 tab (5mg) po together with 1 tab (10mg) at bedtime for a total of 15mg. Bagnell Carbonate Dose: ORAL, TWICE DAILY for Qty: 28 Sent to (Bagnell Carbonate) 300 Milligram mood stabilization Refills: 0 Pharm 1 300 MG CAPSULE Take 1 cap (300mg) po BID. Benztropine Mesylate Dose: ORAL, 2200 for muscle Qty: 14 Sent to (Benztropine 1 Milligram stiffness Refills: 0 Pharm 1 Mesylate) 1 MG Take 1 tab po QHS. TABLET Fluphenazine HCl Dose: ORAL, TAKE AT BEDTIME Qty: 14 Sent to (Fluphenazine HCl) 1 Tablet for clear thoughts Refills: 0 Pharm 1 10 MG TABLET Take 1 tab po at bedtime. CONTINUE taking these Home Medications: Multivitamin (Multi-Day Dose: ORAL, DAILY for Vitamins) 1 EACH TABLET 1 Tablet SUPPLEMENT STOP taking these DISCONTINUED Home Medications: Risperidone (Risperdal) 3 MG Dose: ORAL, AT BEDTIME for clear TABLET 1 Tablet thoughts Take 1 tab by mouth at bedtime. Reason Stopped: Per Doctor Decision Quetiapine Fumarate (Seroquel Dose: ORAL, As Directed for MENTAL XR) 50 MG (3)-200 MG (1)-300 1 Tablet HEALTH MG (11) [id number] Reason Stopped: Changed Dose Sertraline HCl (Sertraline Dose: , for UNKNOWN HCl) (Unknown Strength) TABLET Unknown Dose Reason Stopped: Changed Dose 1: [id number], [address] [place] [address] Your Preferred Pharmacy [id number] [place] [address] Multiple Neuroleptics: ([X]) Not Applicable OR Document below three failed attempts at monotherapy, or a plan to taper to monotherapy, or augmentation of Clozapine. () Patient's Diet: Regular. Patient's Activity: No restrictions. DC Disposition: The patient to return to home and parents. Recommendations: The patient discharged against medical advice. The patient was advised to please take all medications as prescribed. She was given a lab slip to complete Bagnell blood draw tomorrow morning prior to taking morning Bagnell dose. She was advised to follow up with IOP intake tomorrow scheduled at 2PM. She was advised that in the event of an emergency to call [phone]/go to the nearest emergency department. Both the patient and her father verbalized understanding of all discharge recommendations. *Strongly recommend switching from oral Prolixin formulation to decanoate to reduce the risk of future medication non-adherence given the patient's past/ recent history of medication non-adherence. Referred To: Provider Referral Service Date: 04/11/17 Referred To: [[facility]] Notes: [address] [phone] 04/11/17, 2pm with Michelle Dejesus Copies To: [facility]
[2017-04-10] MEDS ORDERED: BENZTROPINE MESY1 M1 PO (15:12)
[2017-04-10] MEDS ORDERED: LITHIUM CARBON300 M4 PO (15:12)
[2017-04-10] MEDS ORDERED: FLUPHENAZINE HC10 M1 PO (15:12)
[2017-04-10] MEDS ORDERED: FLUPHENAZINE HCL5 M1 PO (15:12)
[2017-04-10 16:22] VITALS: BP 111/57
--- NOTE | 2017-04-10 16:46 | SOCIAL WORKER PROG NOTE PSYCH ---
Social Work Progress Note Progress Note 11:20am Gary and Frederick Chao APRN met with patient. Pt was recommended to continue with inpt treatment, however, she reported that she would like to be discharged. Pt was assessed for safety.... Pt was inagreement with this plan. Pt was also in agreement to attend [facility] until she is able to secure individual therapy and medication management on an outpatient basis. Pt was scheduled for an intake assessment with [facility] for 04/11/17 at 2pm with Michelle Dejesus. 11am Gary and Frederick Chao APRN contacted pt's father by phone to discuss ... and discharge plan. He stated that he also would like the pt to be discharged today and was in agreement with.... Additionally, he stated that the pt would be able to attend the IOP intake assessment as scheduled. Pt's father stated that he would be able to pick her up around 5:30 or 6:00pm today and will meet with Frederick Chao APRN at that time.
--- NOTE | 2017-04-11 13:19 | SOCIAL WORKER PROG NOTE PSYCH ---
Social Work Progress Note Progress Note Called in clinical discharge information to Rogelio Delarosa .
--- NOTE | 2017-04-11 14:26 | IOP INTRA-AGENCY ASSESS ---
Psych Intra-Agency Transfer Date of Group or Service 04/11/17 Time of Group or Service: 1409 Part 1 Transferring Program: [facility] Accepting Program: A Presenting Problem: Per the crisis consultation on 03/30:( please refer to discharge note below by SUPERVISOR STATEMENT CLERKS) Pt is a 22 yo female who presents for evaluation due to SI and psychosis. Pt presents with as flat affect speech is incoherent and barely audible as she speaks in mumbled whispers whispers. "I need to speak top a Doctor because my brain is bleeding." This clinician was not able to make out anything else pt expressed. Pt is accompanied by her mother at bed side. Therefore, Crisis eval was limited and based largely on collateral from pt's Mom and Pt's IOP clinician January. Per pts mother, Courtney Kennedy ([phone]), pt has been struggling with her mental health issues since she was 17 years old and has had 5 inpatient hospitalizations. Mom explained that patient has been diagnosed with Bipolar Disorder, with psychosis. Courtney reports that the pt was last hospitalized on [facility] in February 2017 and was discharged to follow up with IOP at [facility]. Pt has been attending IOP and was doing well, until the patient was taken off her Risperdal due to facial swelling. Mom noticed that shortly after stopping the Risperdal that the patient began decompensating, with worsening symptoms of depression and psychosis. Mom explained that over the last week pt has been very anxious, talking about GOD, talking about suicide and has been paranoid. Mom reports that pt has never made any suicidal statements in the past and last night pt grabbed a knife and stated that she (Pt) wanted the police to think that she (pt) was going to kill her father (Courtney's ) and therefore they would kill her (pt). Mom believes that the patients biggest issue is acceptance of her diagnosis and treatment and medication non-compliance. Mom emphasized the importance of pt being admitted to [facility] and not transferred elsewhere because not only would it be best for continuity of care as pt is in IOP, but also if pt is send elsewhere it could potentially worsen her PTSD sx. Per January, pt has been decompensating and there is great concern regarding her sx. She strongly recommends inpt psych tx. She informed that Pt has been making paranoid, delusional nonsensical statements such as expressing that when she was on [facility] they did brain surgery on her. january informed that when pt was in IOP on 03/27, Dr. Gilliland was asked to evaluate pt for a PEC due to concerns about her psychiatric decompensation, but he did not feel at the time that pt was committable, but not pt sx have continued to decompensate. Case reviewed with Dr. Bryan and training executive Justine Sagastume. pt is in need of psychiatric hospitalization as she is gravely disabled at this time and a danger to self and others. pt will be placed on a PEC. It was determined that based on pt's clinical needs, pt should be admitted to [facility] when a bed becomes available as it is anticipated that a bed will become available possibly this evening and if not this evening, then likely tomorrow.>>>>>>>>>>Jannet Culp LCSW The patient discharged against medical advice. The patient was advised to please take all medications as prescribed. She was given a lab slip to complete Gargatha blood draw tomorrow morning prior to taking morning Gargatha dose. She was advised to follow up with [facility] intake tomorrow scheduled at 2PM. She was advised that in the event of an emergency to call [phone]/[id number] to the nearest emergency department. Both the patient and her father verbalized understanding of all discharge recommendations. *Strongly recommend switching from oral Prolixin formulation to decanoate to reduce the risk of future medication non-adherence given the patient's past/ recent history of medication non-adherence.>> Alexandra Rudd APRN The patient discharged against medical advice on 04/10/17. This was witnessed by this technical publications writer. I reviewed all discharge information, including her scheduled medications, the doses that are next due, and the times of administration. Both parties verbalized understanding of education. Neither alliance party had further questions. Both the patient and her father signed AMA discharge form. The patient's father verbalized that he will assume all responsibility of the patient along with his post-discharge. They were both instructed on the risks of discharging against medical advice and verbalized understanding.>>>> Alexandra Rudd APRN Today pt reports feeling tired and unwilling to fill out self rating assessments and mini mental status exam. Pt was agreeable to take paperwork home and complete it. She said her hospital stay was somewhat helpful and she felt more positive. Pt refused to sign a MARIELY for an emergency contact at this time. She said if she absolutely needs to she will sign one when she comes in for group on 04/15. Pt denies SI/HI/AVH at present. She stated she is " getting tired of being asked those type of questions." Pt is agreeable to start IOP despite her presentation during intake. Preferred Learning Style i.e. visual, auditory, experiential, etc: not sure Treatment Goal: I don't know , maybe gain some positivity Orientation Person, Place, Situation Affect Flat Speech WNL Neuro-vegetative WNL Thought Process WNL Thought Content WNL Memory WNL Insight Poor Judgment Poor Appearance Dress/Hygiene: Pt is well dressed and groomed. Risk Assessment RISK ASSESSMENT Suicidal Ideation/Attempts (past or current): Past: denies Current: denies Family History: denies Homicidal Ideation/Attempts (past or current): Past: denies Current: denies Protective factors for SI/HI: I don't know Degree of Intent None Gravely Disabled Lack of Insight, Poor Judgment Risk Factors Age (under 24 or over 65), SA/ Hospitalization(s) Lethality Rating 1 (mild) Medication Review Allergies Coded Allergies: No Known Allergies (02/23/17) Medication Details MEDICATIONS PSYCHIATRIC MEDICATIONS fluphenazine HCL 5mg tab nightly fluphenazine HCL 10 mg tab nightly ( 15mg TOTAL at night) lithium carbonate 300 mg 2x daily OTHER MEDICATIONS benztropine mesylate 1mg tab po QHS multivitamin supplement 1 tab daily PREVIOUS PSYCHIATRIC MEDICATIONS none stated Part 2 Assessed Needs and Initial Treatment Plan/Goals: Start IOP, group and individual therapy, pyschoeducation, medication management and coping skills. Further Evaluations Recommended: None Indicated Neurological Vocational Psychiatric Medical (H&P) Nutritional Psychological Educational SA Assessment Other * To be completed by Admitting MD or Assigned SUPERVISOR STATEMENT CLERKS Only PRE-CERTIFICATION FOR ADMISSION- Managed Care Provider: Name of Reviewer/Furniture And Bedding Inspector: Contact Telephone #: # Inpatient days approved: Authorization #: Date of Next Review: DSM5/PS Stressors/Medical Prob Diagnosis' (DSM 5, Stressors, Medical): F31.5 Bipolar current episode depressed with psychotic features F43.10 PTSD medical: pt denies psychosocial: primary relationships Current GAF: 38 Comments: Pt refused whodas
--- NOTE | 2017-04-12 10:51 | SOCIAL WORKER PROG NOTE PSYCH ---
Social Work Progress Note Progress Note Sw left vm for Isaura Gascaem requesting an IOP authorization. Call back number was provided and IOP clinicians informed that this vm was left.
== END 2017-04-10 17:34 | DRG 885 ==
LOC: ERH 18:23 → CP SOUTH 03-30 12:45 → ERHI 03-30 12:45 → ENTRNSPT 03-30 14:04 → CP SOUTH 03-30 14:20 → CMPTRNSPT 04-01 14:33 → CP SOUTH 04-02 12:36
PROVIDERS: Emergency Medicine; Physician Assistant Medical; ADMIT Psychiatry & Neurology Addiction Medicine
DX: F31.64 Bipolar disorder, current episode mixed, severe, with psychotic features (principal)
CPT/HCPCS: 36415; 80307; 82436; G0463; G0480; J0515